=== PATIENT | female | born 2005 | race Hispanic/Latino ===

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

== ENCOUNTER 2024-04-02 22:47 | Emergency (ER) | payer BC, SELFPAY ==
[2024-04-02 22:48] VITALS: BP 137/106; PULSE 69; RESP 16; TEMP 36.7; O2SAT 100; BMI 24.5
--- NOTE | 2024-04-02 23:15 | RAD_ITS ---
EXAM: XR CHEST, 2 VIEWS CLINICAL INDICATION: cough TECHNIQUE: Frontal and lateral views of the chest. COMPARISON: No relevant prior studies available. FINDINGS: LUNGS AND PLEURAL SPACES: Unremarkable. No consolidation or edema. No pneumothorax. No effusion. HEART: Unremarkable. Cardiac silhouette not enlarged. MEDIASTINUM: Central airways and mediastinal contour are unremarkable. BONES/JOINTS: Unremarkable. No acute fracture. SOFT TISSUES: Unremarkable. RAD/Chest PA and Lateral IMPRESSION: No radiographic evidence of acute cardiopulmonary disease. Electronically Signed: Kassandra Casillas MD at 0:35 EST ,
--- NOTE | 2024-04-03 00:26 | EDS_ITS ---
HPI History of Present Illness Chief Complaint: Sore Throat Informant: patient Narrative Narrative: Patient is a 18-year-old female with past medical history of pseudoseizures. She states multiple people at work have been sick. She reports that she had sore throat with nasal congestion and cough from was 2 weeks and was seen in urgent care and placed on amoxicillin. She states she took 7 days of the antibiotic and felt better for 1 to 2 days. However in the last 1 to 2 days she has returned with congestion drainage cough and sore throat. Patient has concern that the antibiotic did not treat her infection as symptoms returned shortly after stopping it and therefore comes in for evaluation [facility] Medical History Pseudoseizures Home Medications ?Medication ?Instructions ?Recorded ?Last Taken ?Type aripiprazole 2 mg tablet 2 mg PO DAILY 05/29/21 Unknown History calcium 600 mg PO/SL DAILY 05/29/21 Unknown History fluoxetine 40 mg capsule 40 mg PO DAILY 05/29/21 Unknown History trazodone 100 mg tablet 100 mg PO DAILY 05/29/21 Unknown History cyclobenzaprine 10 mg tablet 10 mg PO TID PRN Muscle Spasm #20 11/17/23 Unknown Rx TABLETS ibuprofen 600 mg tablet 600 mg PO Q6H PRN PRN pain #20 11/17/23 Unknown Rx TABLETS benzonatate 200 mg capsule 200 mg PO TID PRN cough 10 days 04/03/24 Unknown Rx #30 caps prednisone 20 mg tablet 40 mg (2 x 20 mg) PO DAILY 7 days 04/03/24 Unknown Rx #14 tabs Allergy/AdvReac Type Severity Reaction Status Date / Time No Known Allergies Allergy Verified 04/02/24 22:49 Family History Father Diabetes Brother Depression ADD (attention deficit disorder) Sister Depression Surgical History History of artificial skin graft Hx of appendectomy Social History Smoking Status: Current every day smoker tobacco type: e-cigarettes alcohol intake: never substance use type: does not use ROS ROS ED Constitutional Constitutional ED: Denies chills or fever(s) Eyes Eyes: Denies blurry vision or change in vision ENT ENT ED: Reports rhinorrhea and sore throat Cardiovascular Cardiovascular: Denies chest pain Respiratory/Chest Respiratory/Chest: Reports cough; Denies dyspnea Gastrointestinal Gastrointestinal: Denies abdominal pain, diarrhea, nausea or vomiting Genitourinary Genitourinary ED: Denies dysuria Musculoskeletal Musculoskeletal: Reports myalgias Integumentary Denies rash Neurologic Neurologic: Denies headache(s) Hematologic/Lymphatic Hematologic/Lymphatic: Denies easy bleeding or easy bruising Allergic/Immunologic Allergic/Immunologic ED: Denies mouth swelling or tongue swelling EXAM Physical Exam Const Vital Signs: 04/02/24 22:48 04/03/24 00:39 Temperature 98.1 F 97.9 F Temperature Source Oral Pulse Rate 69 69 Respiratory Rate 16 18 Blood Pressure 137/106 H 121/74 H Blood Pressure Mean 116 89 Pulse Ox 100 99 Oxygen Delivery Method Room Air Positive well nourished and well developed General Appearance ED: well developed; Negative for pallor HEENT HEENT Narrative: Bilateral TMs are retracted but show no secondary changes to suggest infection Nasal mucosa is hyperemic and boggy with enlarged inferior nasal turbinates There is cobblestoning noted in the posterior pharynx consistent with sinus drainage without airway edema or compromise No tongue or lip swelling no oral lesions; no secondary findings to suggest infection No trismus change in voice or difficulty with secretions Eyes PERRL and EOMs intact bilaterally Neck supple Neck Narrative: No nuchal rigidity or meningeal signs Anterior several lymphadenopathy is noted bilaterally Resp normal respiratory effort and clear to auscultation bilaterally Cardio regular rate and regular rhythm Extremity normal to inspection Neuro oriented x3, CN's II-XII intact bilaterally and no sensory deficits noted Sensorium / Orientation: alert Motor Exam: strength 5/5 throughout Psych Mood & Affect: anxious Skin no rashes or lesions noted and no wounds General Skin Exam: Negative for jaundice or pallor MDM MDM MDM Narrative Medical decision making narrative: Patient arrived to the ER hypertensive but otherwise with stable vitals. She reported being sick with congestion cough and sore throat for few weeks followed by improvement for 1 to 2 days with return of symptoms. This is most consistent with recurrent upper respiratory tract infection. We discussed this could be related to COVID versus influenza versus RSV but as she is not hypoxic or in respiratory distress it would not change treatment options and therefore patient does not want the swab obtained. We discussed potential strep throat swab as this is a potential for her symptoms but physical exam does not show any changes for this and especially since she recently took amoxicillin my concern for strep throat is low and patient does not want a strep swab obtained. Patient has no physical exam findings concerning for Carol Ann-Centeno/mononucleosis so I feel no need for a Monospot test either. However based on her age and recurrent exposures she may have developed atypical pneumonia so a chest x-ray was ordered. Chest x-ray revealed no acute lung pathology indicating she has a recurrent viral infection. At this time she is not in respiratory distress she does not have airway compromise and there is no need for further workup or admission and she be discharged home with symptomatic care. History & Record Review Discussion w/independent historian: Patient Radiography Diagnostic Testing: Clinical Impression(s) from Imaging Studies Chest X-Ray 04/02/24 23:15 IMPRESSION: No radiographic evidence of acute cardiopulmonary disease. Electronically Signed: Kassandra Casillas MD at 0:35 EST , 2 view chest x-ray as interpreted by the emergency medicine physician reveals no acute infiltrate pneumothorax or pleural effusion Discharge Plan Triage Chief Complaint: Sore Throat ED Provider: Medardo Gill Dx/Rx/DC Orders Clinical Impression: Viral upper respiratory tract infection with cough, Pharyngitis Instructions: ED URI, Viral, No Abx (Adult) Prescriptions: New prednisone 20 mg tablet 40 mg PO DAILY 7 Days Qty: 14 0RF benzonatate 200 mg capsule 200 mg PO TID PRN (Reason: cough) 10 Days Qty: 30 0RF No Action fluoxetine 40 mg capsule 40 mg PO DAILY trazodone 100 mg tablet 100 mg PO DAILY aripiprazole 2 mg tablet 2 mg PO DAILY calcium 600 mg PO/SL DAILY ibuprofen 600 mg tablet 600 mg PO Q6H PRN PRN (Reason: pain) Qty: 20 0RF cyclobenzaprine 10 mg tablet 10 mg PO TID PRN (Reason: Muscle Spasm) Qty: 20 0RF Primary Care Provider: Care Physician,No Primary Referrals: Ricky Nix MD [Med Staff - Active Staff] - Care Physician,No Primary [Primary Care Provider] - Activity Restrictions/Additional Instructions: Your x-ray does not show pneumonia and your history and exam is consistent with a viral upper respiratory tract infection. This will last 18 to 21 days on average and needs to run its course antibiotics will not resolve it. Take the prescribed medication as directed to help control symptoms and return to the ER should you have any further concerns Print Language: Georgian Disposition Disposition: Home, Self Care Discharge Date/Time: 04/03/24 00:40
[2024-04-03] MEDS: predniSONE 20 MG Tablet 60 MG PO (00:37)
[2024-04-03] MEDS: Benzonatate 100 MG Capsule 200 MG PO (00:38)
[2024-04-03 00:39] VITALS: BP 121/74; PULSE 69; RESP 18; TEMP 36.6; O2SAT 99
== END 2024-04-03 00:40 | disposition home or self-care (01) ==
PROVIDERS: Emergency Provider Emergency Medicine; Visit Provider Emergency Medicine
DX: J06.9 Acute upper respiratory infection, unspecified (principal); F17.290 Nicotine dependence, other tobacco product, uncomplicated
CPT/HCPCS: 71046; 99283

== ENCOUNTER → 2024-04-03 | Outpatient (CLI) | payer BC, SELFPAY ==
[2024-04-03 17:38] LABS: Absolute Lymphocyte Count 2.29 X10^3/uL (0.83-4.51); Absolute Neutrophil Count 12.1 X10^3/uL (2.0-7.7); Basophil# 0.03 X10^3/uL; Basophil% 0.2 % (0-1); Eosinophil# 0.07 X10^3/uL; Eosinophils% 0.5 % (0-5); Hematocrit 39.5 % (37-47); Lymphocyte # 2.29 X10^3/ul (0.83-4.51); Lymphocyte % 14.9 % (19-41); Mean Corp Hgb Conc 32.9 g/dL (32-36); Mean Corpuscular Volume 88.2 fL (81-99); Mean Platelet Vol. 10.2 fl (6.2-12.0); Monocyte# 0.82 X10^3/uL; Monocyte% 5.4 % (0-10); NRBC Flagged by Analyzer 0 % (0-5); Neutrophil # 12.05 X10^3/uL (2.7-7.7); Neutrophil % 78.6 % (47-70); Platelet Count 345 K/mm3 (150-450); RBC Distribution Width CV 12.4 % (11.6-14.6); RBC Distribution Width SD 39.9 fl (35.1-43.9); Red Blood Count 4.48 M/mm3 (4.2-5.4); White Blood Count 15.3 K/mm3 (4.4-11.0)
[2024-04-03 19:08] LABS: ALB/GLOB Ratio 1.1 RATIO (0.9-2.4); AST(SGOT) 15 U/L (15-37); Alanine Aminotransfer ALT/SGPT 19 U/L (13-56); Albumin, Serum 4.2 g/dL (3.2-5.0); Alkaline Phosphatase 95 U/L (45-117); Anion Gap 10 (5-15); BUN 14 mg/dL (7-18); BUN/Creat Ratio 17.1 RATIO (10-20); Calcium,Total 9.4 mg/dL (8.5-10.1); Chloride 107 mmol/L (98-107); Creatinine, Serum 0.82 mg/dL (0.55-1.02); EST Glomerular Filtration Rate 95 mL/min (>60); Est Glom Filt Rate - Afr Amer 115 mL/min (>60); Globulin 3.8 g/dL (2.2-4.2); Glucose 125 mg/dL (74-106); Potassium 3.4 mmol/L (3.5-5.1); Sodium Level 140 mmol/L (136-145); T4 Free Direct 1.09 ng/dL (0.76-1.46); Thyroid Stim Hormone (TSH) 0.293 uIU/mL (0.358-3.740)
[2024-04-03 19:28] LABS: Hemoglobin A1c 5.5 % (3.8-5.6)
[2024-04-06 07:08] LABS: Anti-Thyroglobulin AB < 1.0 IU/mL (0.0-0.9); Thyroglobulin, Serum Qt. 12.6 ng/mL (1.5-38.5); Thyroid Peroxidase AB 18 IU/mL (0-26); Thyroid Stim Immunoglob <0.10 IU/L (0.00-0.55)
== END | disposition home or self-care (01) ==
LOC: MFPLAB 16:37
PROVIDERS: PCP Family Medicine; Referring Provider Family Medicine; Visit Provider Family Medicine
DX: R79.89 Other specified abnormal findings of blood chemistry (principal); R73.02 Impaired glucose tolerance (oral); R63.4 Abnormal weight loss
CPT/HCPCS: 36415; 80053; 83036; 84432; 84439; 84443; 84445; 85025; 86376; 86800

== ENCOUNTER → 2024-04-08 | Outpatient (CLI) | payer BC, SELFPAY ==
--- NOTE | 2024-04-08 15:53 | US_ITS ---
STUDY: THYROID ULTRASOUND REASON FOR EXAM: Female, 18 years old. Thyroid nodule. TECHNIQUE: Ultrasound evaluation of the thyroid was performed with real-time and static clements-scale imaging. COMPARISON: None. FINDINGS: RIGHT LOBE: The right lobe of the thyroid gland measures 3.9 cm x 1.1 cm x 1.1 cm. There is a homogeneous echotexture. There are no demonstrated solid, cystic or complex lesions. LEFT LOBE: The left lobe of the thyroid gland measures 3.2 cm x 1.2 cm x 1.1 cm. There is a homogeneous echotexture. There are no demonstrated solid, cystic or complex lesions. ISTHMUS: The isthmus measures 1 mm. The regional lymph nodes are normal. US/Head/Neck Soft Tissue IMPRESSION: Normal ultrasound examination of the thyroid. Electronically Signed: Omega Ray MD at 15:10 EST ,
== END | disposition home or self-care (01) ==
LOC: US 15:51
PROVIDERS: PCP Family Medicine; Referring Provider Family Medicine; Visit Provider Family Medicine
DX: E04.1 Nontoxic single thyroid nodule (principal)
CPT/HCPCS: 76536

== ENCOUNTER → 2024-05-06 | Outpatient (CLI) | payer BC, SELFPAY ==
[2024-05-06 17:53] LABS: Absolute Lymphocyte Count 3.33 X10^3/uL (0.83-4.51); Absolute Neutrophil Count 7.3 X10^3/uL (2.0-7.7); Basophil# 0.07 X10^3/uL; Basophil% 0.6 % (0-1); Eosinophil# 0.09 X10^3/uL; Eosinophils% 0.8 % (0-5); Hematocrit 38.5 % (37-47); Hemoglobin 12.6 g/dL (12.0-15.0); Lymphocyte # 3.33 X10^3/ul (0.83-4.51); Lymphocyte % 29.4 % (19-41); Mean Corp Hgb Conc 32.7 g/dL (32-36); Mean Corpuscular Hgb 29.6 pg (27.0-32.0); Mean Corpuscular Volume 90.4 fL (81-99); Mean Platelet Vol. 10.5 fl (6.2-12.0); Monocyte# 0.48 X10^3/uL; Monocyte% 4.2 % (0-10); NRBC Flagged by Analyzer 0 % (0-5); Neutrophil % 64.6 % (47-70); Platelet Count 343 K/mm3 (150-450); RBC Distribution Width CV 12.7 % (11.6-14.6); RBC Distribution Width SD 41.5 fl (35.1-43.9); Red Blood Count 4.26 M/mm3 (4.2-5.4); White Blood Count 11.3 K/mm3 (4.4-11.0)
[2024-05-06 18:29] LABS: Anion Gap 7 (5-15); BUN 19 mg/dL (7-18); BUN/Creat Ratio 14.4 RATIO (10-20); Calcium,Total 9.5 mg/dL (8.5-10.1); Chloride 107 mmol/L (98-107); Creatinine, Serum 1.32 mg/dL (0.55-1.02); EST Glomerular Filtration Rate 55 mL/min (>60); Est Glom Filt Rate - Afr Amer 66 mL/min (>60); Glucose 83 mg/dL (74-106); Magnesium 2.4 mg/dL (1.6-2.6); Potassium 3.6 mmol/L (3.5-5.1); Sodium Level 140 mmol/L (136-145)
== END | disposition home or self-care (01) ==
LOC: MFPLAB 15:48
PROVIDERS: PCP Family Medicine; Referring Provider Family Medicine; Visit Provider Family Medicine
DX: D72.829 Elevated white blood cell count, unspecified (principal); E87.6 Hypokalemia
CPT/HCPCS: 36415; 80048; 83735; 85025

== ENCOUNTER 2024-08-12 23:17 | Emergency (ER) | payer SELFPAY ==
[2024-08-12 23:17] VITALS: BP 118/90; PULSE 70; RESP 16; TEMP 36.8; O2SAT 99; BMI 24.2
[2024-08-13] MEDS: HYDROmorphone 0.5 MG/0.5 ML SYRINGE IV ×2 (00:08→03:14)
[2024-08-13] MEDS: 0.9% Normal Saline (1000mL) 1,000 ML 999 ML IV (00:08)
[2024-08-13] MEDS: Ondansetron 4 MG/2 ML Vial IV (00:08)
[2024-08-13 00:19] LABS: Absolute Lymphocyte Count 3.77 X10^3/uL (0.83-4.51); Absolute Neutrophil Count 4.4 X10^3/uL (2.0-7.7); Basophil# 0.05 X10^3/uL; Basophil% 0.6 % (0-1); Eosinophil# 0.15 X10^3/uL; Eosinophils% 1.7 % (0-5); Hematocrit 34.1 % (37-47); Hemoglobin 11.5 g/dL (12.0-15.0); Lymphocyte # 3.77 X10^3/ul (0.83-4.51); Lymphocyte % 41.9 % (19-41); Mean Corp Hgb Conc 33.7 g/dL (32-36); Mean Corpuscular Hgb 29.7 pg (27.0-32.0); Mean Corpuscular Volume 88.1 fL (81-99); Mean Platelet Vol. 9.8 fl (6.2-12.0); Monocyte# 0.63 X10^3/uL; NRBC Flagged by Analyzer 0 % (0-5); Neutrophil # 4.37 X10^3/uL (2.7-7.7); Neutrophil % 48.6 % (47-70); Platelet Count 301 K/mm3 (150-450); RBC Distribution Width CV 12.3 % (11.6-14.6); RBC Distribution Width SD 39.6 fl (35.1-43.9); Red Blood Count 3.87 M/mm3 (4.2-5.4)
[2024-08-13 00:29] LABS: AST(SGOT) 21 U/L (<=31); Alanine Aminotransfer ALT/SGPT 10 U/L (<=34); Albumin, Serum 4.2 g/dL (3.5-5.0); Alkaline Phosphatase 82 U/L (35-104); Anion Gap 10 (5-15); BUN 16 mg/dL (4-19); BUN/Creat Ratio 22.2 RATIO (10-20); Bilirubin, Direct 0.17 mg/dL (0.00-0.30); Calcium,Total 9.2 mg/dL (7.6-11.0); Carbon Dioxide 23.5 mmol/L (21.0-32.0); Chloride 107 mmol/L (98-108); Creatinine, Serum 0.71 mg/dL (0.70-1.20); EST Glomerular Filtration Rate 125 (>60); Estimated Creatinine Clearance 91.54 ml/min (50-250); Globulin 2.7 g/dL (2.2-4.2); Glucose 95 mg/dL (70-99); Lipase 21 U/L (13-75); Potassium 3.7 mmol/L (3.3-5.1); Protein, Total 6.8 g/dL (5.9-8.4); Sodium Level 141 mmol/L (133-145); Total Bilirubin 0.39 mg/dL (0.00-1.30)
[2024-08-13 00:33] LABS: Internal QC Validated? YES +Cl - CLEAR BKGD; Pregnancy, Serum, hCG Quali. NEGATIVE Negative
[2024-08-13 01:17] VITALS: BP 103/71; PULSE 65; RESP 18; O2SAT 94
[2024-08-13 02:13] LABS: Mucous, Urine 0 SEEN /hpf (<or=2+); Red Blood Cells-Urine 0 SEEN /hpf (0-5)
[2024-08-13 02:17] LABS: Color, Urine Yellow (Yellow); Glucose, Dipstick Normal (Normal); Ketone-Dipstick 5 mg/dl (Negative); Leukocyte Esterase-Dipstick Negative /ul (Negative); Nitrite-Dipstick Negative (Negative); Occult Blood-Urine Negative /ul (Negative); Protein-Dipstick 30 mg/dl (Negative); Urine Bilirubin Dipstick Negative (Negative); Urine Clarity Clear (Clear); Urine Urobilinogen Normal (Normal); Urine pH 6.5 (5.0 - 8.0)
[2024-08-13 02:25] LABS: Bacteria 1+ /hpf (None Seen); Squamous Epithelial Cells - UA 0-5 SEEN /hpf (5-10); White Blood Cells 0-5 SEEN /hpf (0-5)
--- NOTE | 2024-08-13 02:51 | EX.ED.DYSGE1 ---
HPI History of Present Illness Chief Complaint: Abd Pain Informant: patient and spouse/S.O. Narrative Narrative: Patient is a 18-year-old female with past medical history of anxiety and depression as well as nonepileptic seizures. She states that she has had intermittent right upper quadrant abdominal pain for the past few days. She states that however it came on suddenly roughly 1 hour prior to arrival and was more intense than it has been and secondary to the worsening pain she presents for evaluation. She states that there has been no fevers chills nausea vomiting diarrhea or dysuria. She states she does not have concern for STD or . She denies any recent trauma or excessive activity. However due to the recurrent pain and the worsening symptoms she presents for evaluation [facility] Medical History (Updated 08/13/24 @ 06:[address] Medardo Gill DO) Depression Anxiety Pseudoseizures Home Medications ?Medication ?Instructions ?Recorded ?Last Taken ?Type doxycycline hyclate 100 mg capsule 100 mg PO BID 14 days #28 caps 08/13/24 Unknown Rx metronidazole 500 mg tablet 500 mg PO BID 14 days #28 tabs 08/13/24 Unknown Rx ondansetron 4 mg disintegrating 4 mg PO TID PRN nausea and 08/13/24 Unknown Rx tablet vomiting #21 tabs oxycodone-acetaminophen 5 mg-325 1 tab PO Q6H PRN pain 3 days #12 08/13/24 Unknown Rx mg tablet (Percocet) tabs Allergy/AdvReac Type Severity Reaction Status Date / Time No Known Allergies Allergy Verified 08/12/24 23:18 Family History Father Diabetes Brother Depression ADD (attention deficit disorder) Sister Depression Surgical History History of artificial skin graft Hx of appendectomy Social History Smoking Status: Current every day smoker tobacco type: e-cigarettes alcohol intake: never substance use type: does not use ROS ROS ED Constitutional Constitutional ED: Denies chills or fever(s) ENT ENT ED: Denies sore throat Cardiovascular Cardiovascular: Denies chest pain Respiratory/Chest Respiratory/Chest: Denies cough or dyspnea Gastrointestinal Gastrointestinal: Reports abdominal pain and nausea; Denies diarrhea or vomiting Genitourinary Genitourinary ED: Reports other Details: Patient denies any pelvic discharge ; Denies dysuria, hematuria or urinary frequency Musculoskeletal Musculoskeletal: Denies back pain Integumentary Denies rash Neurologic Neurologic: Denies headache(s) Psychiatric Psychiatric: Reports anxiety and depression Hematologic/Lymphatic Hematologic/Lymphatic: Denies easy bleeding or easy bruising EXAM Physical Exam Const Vital Signs: 08/12/24 23:17 08/13/24 01:17 08/13/24 03:21 Temperature 98.3 F 98.2 F Temperature Source Oral Pulse Rate 70 65 69 Respiratory Rate 16 18 18 Blood Pressure 118/90 H 103/71 106/88 H Blood Pressure Mean 99 81 94 Pulse Ox 99 94 99 Oxygen Delivery Method Room Air Positive well nourished and well developed General Appearance ED: well developed; Negative for pallor HEENT Reports moist mucous membranes HEENT Narrative: No sign of infection noted in the posterior pharynx Eyes PERRL and EOMs intact bilaterally General Eye ED: Negative for scleral icterus Neck supple Neck Narrative: No nuchal rigidity or meningeal signs Chest Wall palpation of chest normal Resp normal respiratory effort and clear to auscultation bilaterally Resp Narrative: No nasal flaring retractions tachypnea or accessory muscle use Cardio regular rate and regular rhythm Rate: other Other Details: Heart is regular rate and rhythm without murmurs rubs or gallops Radial and carotid pulses are equal and symmetric GI non-distended and no masses GI Narrative: Abdomen is soft and nondistended with normal active bowel sounds. There is pain on palpation in the right upper quadrant No voluntary guarding or rigidity or pulsatile mass Auscultation: normoactive bowel sounds Palpation: soft Narrative: External genitalia is normal Speculum exam reveals a scant amount of clear to white discharge. The cervical os is closed it is a normal pink color without erythema or lesions No cervical motion tenderness noted No adnexal masses or pain with palpation Back/Spine no CVA tenderness Extremity normal to inspection Neuro oriented x3, CN's II-XII intact bilaterally and no sensory deficits noted Sensorium / Orientation: alert Motor Exam: strength 5/5 throughout Psych Mood & Affect: anxious Skin no rashes or lesions noted and no wounds General Skin Exam: Negative for jaundice or pallor MDM MDM MDM Narrative Medical decision making narrative: Patient presented to the ER with stable vitals. She reported a few days of intermittent right upper quadrant pain that was now increasing in severity. There was no report or signs of trauma. Differential diagnosis is for biliary colic versus acute cholecystitis versus pancreatitis versus complication. At this time of night I cannot perform an ultrasound of so therefore elected to perform a CT scan with IV contrast as well as basic laboratory values. Patient's liver enzymes are normal going against acute cholecystitis and lipase is normal going against pancreatitis. test is also negative going against complication. Urine sample showed +1 bacteria without white blood cells nitrite or leukocyte esterase and therefore I do not feel this is true UTI but most likely normal urogenital mell. The patient CT scan did not show any signs of tubo-ovarian abscess or gallstones or pericholecystic fluid. It did document mild inflammation around the liver which does correlate with the location of her pain. 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 Therefore the urine was sent for gonorrhea and chlamydia. As there is no obvious cause of the patient's symptoms I do have concern that this could be infectious stemming from atypical presentation for STD/PID. Therefore she was started on Rocephin as well as doxycycline and Flagyl. As she does not have a fever or hypotension or leukocytosis or left shift I do not feel there is need for inpatient treatment. Patient will be placed on doxycycline and Flagyl to cover for STD/Kali-Trsiten Chester syndrome and also be given an outpatient order form for a abdominal ultrasound to further evaluate the liver inflammation. An acute hepatitis panel will also be obtained to check for this as a potential cause of her symptoms. However at this time as she is hemodynamically stable we will simply start her on antibiotics covering her for atypical infection and she can follow-up as an outpatient and return if symptoms fail to improve or worsen. History & Record Review Discussion w/independent historian: Patient and Significant other Lab Data Attestation: I reviewed the patient's lab results. Labs: Laboratory Results - last 24 hr 08/12/24 08/13/24 00:05 02:05 WBC 9.0 RBC 3.87 L Hgb 11.5 L Hct 34.1 L MCV 88.1 MCH 29.7 MCHC 33.7 RDW Std Deviation 39.6 RDW Coeff of Deann 12.3 Plt Count 301 MPV 9.8 Immature Gran % (Auto) 0.200 Neut % (Auto) 48.6 Lymph % (Auto) 41.9 H [place] % (Auto) 7.0 Eos % (Auto) 1.7 Baso % (Auto) 0.6 Absolute Neuts (auto) 4.4 Absolute Lymphs (auto) 3.77 Nucleated RBC % 0 Sodium 141 Potassium 3.7 Chloride 107 Carbon Dioxide 23.5 Anion Gap 10 BUN 16 Creatinine 0.71 Estim Creat Clear Calc 91.54 Est GFR (MDRD) Non-Af 125 BUN/Creatinine Ratio 22.2 H Glucose 95 Calcium 9.2 Total Bilirubin 0.39 Direct Bilirubin 0.17 AST 21 ALT 10 Alkaline Phosphatase 82 Total Protein 6.8 Albumin 4.2 Globulin 2.7 Lipase 21 Serum , Qual NEGATIVE Urine Color Yellow Urine Clarity Clear Urine pH 6.5 Ur Specific [place] 1.010 Urine Protein 30 H Urine Glucose (UA) Normal Urine Ketones 5 H Urine Occult Blood Negative Urine Nitrite Negative Urine Bilirubin Negative Urine Urobilinogen Normal Ur Leukocyte Esterase Negative Urine RBC 0 SEEN Urine WBC 0-5 SEEN Ur Squamous Epith Cells 0-5 SEEN Urine Bacteria 1+ Urine Mucus 0 SEEN Chlamydia DNA (MARTY) Cancelled N.gonorrhoeae DNA (MARTY) Cancelled Radiography Diagnostic Testing: Clinical Impression(s) from Imaging Studies Abdomen/Pelvis CT 08/13/24 23:48 IMPRESSION: Mild geographic heterogeneous appearance of the liver and possible mild periportal edema may be inflammatory/infectious, possible hepatitis, clinically correlate. Reading Location: [facility] Discharge Plan Triage Chief Complaint: Abd Pain ED Provider: Medardo Gill Dx/Rx/DC Orders Clinical Impression: Right upper quadrant abdominal pain, Anxiety and depression, History of psychogenic nonepileptic seizure Instructions: Abdominal Pain, ED Abdominal Pain Unkn Cause Fem Prescriptions: New doxycycline hyclate 100 mg capsule 100 mg PO BID 14 Days Qty: 28 0RF metronidazole 500 mg tablet 500 mg PO BID 14 Days Qty: 28 0RF oxycodone-acetaminophen [Percocet] 5-325 mg tablet 1 tab PO Q6H PRN (Reason: pain) 3 Days Qty: 12 0RF ondansetron 4 mg tablet,disintegrating 4 mg PO TID PRN (Reason: nausea and vomiting) Qty: 21 0RF Stand Alone Forms: ED Work / School Excuse Other Ambulatory Orders: Abdomen Complete (Routine) Facility: [facility] - Location: [facility] Ordered By: Dr. Medardo Gill Primary Care Provider: Jaycob Perera Referrals: Jaycob Perera MD [Primary Care Provider] - Activity Restrictions/Additional Instructions: Your workup today showed inflammation around your liver which is nonspecific. 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 There is still a possibility your pain could be related to your gallbladder. Please obtain the outpatient ultrasound to further evaluate the abnormality found on today's CT scan. Take the medication as prescribed to cover for potential infection process and return to the ER should you have any further concerns or worsening of symptoms Print Language: Guamanian Disposition Disposition: Home, Self Care Discharge Date/Time: 08/13/24 03:33
[2024-08-13] MEDS: Ceftriaxone 500 MG Vial IM (03:17)
[2024-08-13] MEDS: oxyCODONE 5 MG Tablet PO (03:19)
[2024-08-13] MEDS: Doxycycline 100 MG CAPSULE PO (03:19)
[2024-08-13] MEDS: metroNIDAZOLE 500 MG Tablet PO (03:19)
[2024-08-13 03:21] VITALS: BP 106/88; PULSE 69; RESP 18; TEMP 36.8; O2SAT 99
--- NOTE | 2024-08-13 23:48 | CT_ITS ---
PROCEDURE: ABDOMEN/PELVIS W IV CONT ONLY 08/13/2024 REASON FOR EXAM: RUQ PAIN TECHNIQUE: Abdomen and pelvis CT with intravenous contrast. Coronal and Sagittal reconstruction series were provided. PATIENT PREPARATION: Per protocol ORAL CONTRAST TYPE: None. CONTRAST: 96 cc Isovue 370 IV One or more dose reduction techniques were used (e.g., Automated exposure control, adjustment of the mA and/or kV according to patient size, use of iterative reconstruction technique. RADIATION DOSE SUMMARY: CTDlvol: 16.62 mGy DLP: 328.33 mGycm COMPARISON: None available FINDINGS: Lung bases are clear. Mild geographic heterogeneous appearance of the liver and possible mild periportal edema may be inflammatory/infectious, possible hepatitis, clinically correlate. The gallbladder, adrenal glands, kidneys, pancreas and spleen appear within limits. Abdominal aorta appears within limits. No adenopathy. No bowel dilation or free air. Status post appendectomy, no secondary signs. The ovaries, uterus and bladder appear within limits. No free fluid. Visualized osseous structures appear within limits. CT/Abdomen/Pelvis W IV Cont ONLY IMPRESSION: Mild geographic heterogeneous appearance of the liver and possible mild peripor lila edema may be inflammatory/infectious, possible hepatitis, clinically correlate. Reading Location: [id number]
[2024-08-14 05:07] LABS: HEPATITIS B SURFACE AG Negative (Negative); Hep C Antibodies Non Reactive (Non Reactive); Hepatitis A IgM Antibody Negative (Negative); Hepatitis B Core AB IgM Negative (Negative)
== END 2024-08-13 03:33 | disposition home or self-care (01) ==
PROVIDERS: Emergency Provider Emergency Medicine; PCP Family Medicine; Visit Provider Emergency Medicine
DX: R10.11 Right upper quadrant pain (principal); F41.9 Anxiety disorder, unspecified; F32.A Depression, unspecified; F17.290 Nicotine dependence, other tobacco product, uncomplicated
CPT/HCPCS: 74177; 80048; 80074; 80076; 81001; 83690; 84703; 85025; 87491; 87591; 96361; 96372; 96374; 96375; 96376; 99284; Q9967; A4216; J2405

== ENCOUNTER 2024-10-31 19:47 | Emergency (ER) | payer SELFPAY ==
[2024-10-31 19:49] VITALS: BP 119/95; PULSE 76; RESP 16; TEMP 36.8; O2SAT 99; BMI 22.8
--- NOTE | 2024-10-31 20:02 | CT_ITS ---
PROCEDURE: CT BRAIN/HEAD WITHOUT CONTRAST 10/31/2024 REASON FOR EXAM: HEAD INJURY TECHNIQUE: CT BRAIN/HEAD WITHOUT CONTRAST Coronal and Sagittal reconstruction series were provided. One or more dose reduction techniques were used (e.g., Automated exposure control, adjustment of the mA and/or kV according to patient size, use of iterative reconstruction technique. RADIATION DOSE SUMMARY: CTDlvol: 44.99 mGy DLP: 812.98 mGycm COMPARISON: None. FINDINGS: No acute intracranial hemorrhage, extra-axial collection, mass effect or evidence of acute infarct. Ventricles and subarachnoid spaces are normal in size. Orbital contents are unremarkable. Intact skull base and calvarium. Clear paranasal sinuses and mastoid air cells. Presumed cosmetic metallic piercing in the patient's right eyebrow region. CT/Brain/Head without Contrast IMPRESSION: No acute intracranial abnormality. Reading Location: [id number]
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
--- OUTSIDE RECORDS SUMMARY | 2024-10-31 20:39 | XMS RPT_ITS | CCD ---
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 [address] [place], [address] [id number] 08-13-2024 [id number] Pending Chlamydia Trachomatis PCR POSITIVE for Chlamydia trachomatisA N. gonorrhoeae PCR Negative for N. gonorrhoeae Normal [facility] Comment on above: Performed By: #### L 400.0001 #### [facility] [address] [place], [address] Microscopic analysis of urin e for red blood cells (RBC)Ordered By: Medardo Gill on 08-13-2024 Microscopic analysis of urine for red blood cells (RBC) 0 SEEN /hpf 0-[address] [facility] Mucus LM Ql (Urine sed)Order ed By: Medardo Gill on 08-13-2024 Mucus Ql (Urine sed) 0 SEEN /hpf [facility] Nitrite Test strip Ql (U)Ord ered By: Medardo Gill on 08-13-2024 Nitrite Ql (U) Negative Negative [facility] ,Serum,hCG Quali.on 08-13-2024 HCG, SERUM QUAL Negative Normal [facility] Comment on above: Performed By: #### L 3000.0375 #### [facility] [address] [place], [address] Protein Test strip Ql (U)Ord ered By: Medardo Gill on 08-13-2024 Protein Ql (U) 30 mg/dl High Negative [facility] Squamous epithelial cells de tection in urine sediment by light microscopyOrdered By: Medardo Gill on 08-13-2024 Epithelial cells.squamous LM Ql (Urine sed) 0-5 SEEN /hpf 5-[address] [facility] Urinalysis, Completeon 08-13 BACTERIA 1+ /hpf Normal None Seen [facility] Comment on above: Order Comment: CLEAN CATCH Performed By: #### L 400.0001 #### [facility] [address] [place], [address] EPI,SQUAMOUS 0-5 SEEN Normal 5-[address] [facility] Comment on above: Order Comment: CLEAN CATCH Performed By: #### L 400.0001 #### [facility] [address] [place], [address] WBC 0-5 SEEN Normal 0-[address] [facility] Comment on above: Order Comment: CLEAN CATCH Performed By: #### L 400.0001 #### [facility] [address] [place], [address] Mucus Ql (Urine sed) 0 SEEN Normal [facility] Comment on above: Order Comment: CLEAN CATCH Performed By: #### L 400.0001 #### [facility] [address] [place], [address] RBC 0 SEEN Normal 0-[address] [facility] Comment on above: Order Comment: CLEAN CATCH Performed By: #### L 400.0001 #### [facility] [address] [place], [address] Urine clarityOrdered By: Nacho Gill on 08-13-2024 Clarity (U) Clear Clear [facility] Urine color determinationOrd ered By: Medardo Gill on 08-13-2024 Color (U) Yellow Yellow [facility] Urine glucose detectionOrder ed By: Medardo Gill on 08-13-2024 Glucose Ql (U) Normal mg/dl Normal [facility] Urine leukocyte esterase det ection by dipstickOrdered By: Medardo Gill on 08-13-2024 Leukocyte esterase Test strip Ql (U) Negative Negative [facility] Urine pHOrdered By: Medardo bowie on 08-13-2024 pH (U) 6.5 [pH] 5.0 - 8.[address] [facility] Urine sediment bacteria coun t by microscopy (number/high power field)Ordered By: Medardo Gill on 08-13-2024 Bacteria LM.HPF (Urine sed) [#/Area] 1 /[HPF] None Seen [facility] Urine specific gravity measu rementOrdered By: Medardo Gill on 08-13-2024 Specific gravity (U) [Rel density] 1.010 1.002-1.[address] [facility] Urine urobilinogen measureme ntOrdered By: Medardo Gill on 08-13-2024 Urobilinogen Ql (U) Normal mg/dl Normal [facility] White blood cell countOrdere d By: Medardo Gill on 08-13-2024 White blood cell count 0-5 SEEN /hpf 0-[address] [facility] Absolute lymphocyte countOrd ered By: Medardo Gill on 08-12-2024 Lymphocytes Auto (Unsp spec) [#/Vol] 3.77 10*3/uL 0.83-4.[address] [facility] Absolute neutrophil countOrd ered By: Medardo Gill on 08-12-2024 Neutrophils (Bld) [#/Vol] 4.4 10*3/uL 2.0-7.[address] [facility] Anion gap in Serum or Plasma Ordered By: Medardo Gill on 08-12-2024 Anion gap [Moles/Vol] 10 mmol/L 5-15 [facility] Automated lymphocyte count a s percentage of total leukocytesOrdered By: Medardo Gill on 08-12-2024 Lymphocytes/100 WBC Auto (Unsp spec) 41.9 % High 19-[address] [facility] BUN/creatinine ratioOrdered By: Medardo Gill on 08-12-2024 Urea nitrogen/Creatinine [Mass ratio] 22.2 mg/mg High 10-[address] [facility] Basophil percentageOrdered B y: Medardo Gill on 08-12-2024 Basophils/100 WBC (Bld) 0.6 % 0-[address] [facility] Bilirubin directOrdered By: Medardo Gill on 08-12-2024 Bilirubin.direct [Mass/Vol] 0.17 mg/dL 0.00-0.[address] [facility] Bilirubin, totalOrdered By: Medardo Gill on 08-12-2024 Bilirubin [Mass/Vol] 0.39 mg/dL 0.00-1.30 [facility] Carbon dioxide, total [Moles /volume] in Central venous bloodOrdered By: Medardo Gill on 08-12-2024 CO2 [Moles/Vol] 23.5 mmol/L 21.0-32.[address] [facility] Chloride assayOrdered By: Ashlee Gill on 08-12-2024 Chloride [Moles/Vol] 107 mmol/L 98-108 [facility] Eosinophil percentageOrdered By: Medardo Gill on 08-12-2024 Eosinophils/100 WBC (Bld) 1.7 % 0-[address] [facility] Erythrocyte distribution wid th ratioOrdered By: Medardo Gill on 08-12-2024 Erythrocyte distribution width (RBC) [Ratio] 12.3 % 11.6-14.[address] [facility] Erythrocyte distribution wid th standard deviationOrdered By: Medardo Gill on 08-12-2024 Erythrocyte distribution width (RBC) [Ratio] 39.6 fl 35.1-43.[address] [facility] Glomerular filtration rate ( GFR) estimation/1.73 sq m using serum, plasma, or whole bOrdered By: Medardo Gill on 08-12-2024 GFR/1.73 sq M.predicted among non-blacks MDRD (S/P/Bld) [Vol rate/Area] 125 mL/min/{1.73_m2} >[address] [facility] Comment on above: mL/min/1.73m2 CKD-EP I Creatinine Equation (2020) Hematocrit Auto (Bld) [Volum e fraction]Ordered By: Medardo Gill on 08-12-2024 Hematocrit (Bld) [Volume fraction] 34.1 % Low 37-[address] [facility] Hemoglobin measurementOrdere d By: Medardo Gill on 08-12-2024 Hemoglobin (Bld) [Mass/Vol] 11.5 g/dL Low 12.0-15.[address] [facility] Immature granulocytes/100 WB C Auto (Bld)Ordered By: Medardo Gill on 08-12-2024 Immature granulocytes/100 WBC (Bld) 0.200 % 0.0-0.[address] [facility] Comment on above: IG% - Immature Granu locytes (promyelocytes, myelocytes and metamyelocytes) > 1% indicates that a LEFT SHIFT is Present. Laboratory - Chemistry and C hemistry - challengeOrdered By: Medardo Gill on 08-12-2024 AST [Catalytic activity/Vol] 21 U/L <[address] [facility] Lipase measurementOrdered By : Medardo Gill on 08-12-2024 Lipase [Catalytic activity/Vol] 21 U/L 13-[address] [facility] Comment on above: Please note:LIPASE r evised reference range effective 22. New Lipase methodology. Expected to produce lower values than the previous assay method. NEW Reference Range: 13 - 75 U/L MCV (mean corpuscular volume ) determinationOrdered By: Medardo Gill on 08-12-2024 MCV (RBC) [Entitic vol] 88.1 fL 81-[address] [facility] Mean corpuscular hemoglobin (MCH) determinationOrdered By: Medardo Gill on 08-12-2024 MCH (RBC) [Entitic mass] 29.7 pg 27.0-32.[address] [facility] Mean corpuscular hemoglobin concentration (MCHC) determinationOrdered By: Medardo Gill on 08-12-2024 MCHC (RBC) [Mass/Vol] 33.7 g/dL 32-36 [facility] Mean platelet volume determi nationOrdered By: Medardo Gill on 08-12-2024 Platelet mean volume (Bld) [Entitic vol] 9.8 fL 6.2-12.[address] [facility] Monocyte percentageOrdered B y: Medardo Gill on 08-12-2024 Monocytes/100 WBC (Bld) 7.0 % 0-[address] [facility] Neutrophil percentageOrdered By: Medardo Gill on 08-12-2024 Neutrophils/100 WBC (Bld) 48.6 % 47-[address] [facility] Nucleated red blood cell per centageOrdered By: Medardo Gill on 08-12-2024 Nucleated RBC/100 WBC (Bld) [Ratio] 0 % 0-[address] [facility] Platelet countOrdered By: Ashlee Gill on 08-12-2024 Platelets (Bld) [#/Vol] 301 10*3/uL 150-[address] [facility] Potassium measurement (mass/ volume)Ordered By: Medardo Gill on 08-12-2024 Potassium (Unsp spec) [Mass/Vol] 3.7 mmol/L 3.3-5.[address] [facility] RBC Auto (Bld) [#/Vol]Ordere d By: Medardo Gill on 08-12-2024 RBC (Bld) [#/Vol] 3.87 10*6/uL Low 4.2-5.4 [facility] Serum beta-hCG test, qualita tiveOrdered By: Medardo Gill on 08-12-2024 Beta HCG ( test) Ql Negative [facility] Serum creatinine measurement (mass/volume)Ordered By: Medardo Gill on 08-12-2024 Creatinine [Mass/Vol] 0.71 mg/dL 0.70-1.20 [facility] Serum globulin measurementOr dered By: Medardo Gill on 08-12-2024 Globulin (S) [Mass/Vol] 2.7 g/dL 2.2-4.[address] [facility] Serum glucose measurement (m ass/volume)Ordered By: Medardo Gill on 08-12-2024 Glucose [Mass/Vol] 95 mg/dL 70-99 [facility] Serum or plasma alanine ramirez otransferase (ALT) measurementOrdered By: Medardo Gill on 08-12-2024 ALT [Catalytic activity/Vol] 10 U/L <[address] [facility] Serum or plasma albumin ting urement (mass/volume)Ordered By: Medardo Gill on 08-12-2024 Albumin [Mass/Vol] 4.2 g/dL 3.5-5.0 [facility] Serum or plasma alkaline marek sphatase measurementOrdered By: Medardo Gill on 08-12-2024 ALP [Catalytic activity/Vol] 82 U/L 35-[address] [facility] Serum or plasma calcium ting urement (mass/volume)Ordered By: Medardo Gill on 08-12-2024 Calcium [Mass/Vol] 9.2 mg/dL 7.6-11.0 [facility] Serum or plasma urea nitroge n measurement (mass/volume)Ordered By: Medardo Gill on 08-12-2024 Urea nitrogen [Mass/Vol] 16 mg/dL 4-[address] [facility] Sodium levelOrdered By: Rick Gill on 08-12-2024 Sodium [Moles/Vol] 141 mmol/L 133-145 [facility] Total proteinOrdered By: Nacho Gill on 08-12-2024 Protein [Mass/Vol] 6.8 g/dL 5.9-8.4 [facility] White blood cell (WBC) count Ordered By: Medardo Gill on 08-12-2024 WBC (Bld) [#/Vol] 9.0 10*3/uL 4.4-11.0 [facility] Absolute lymphocyte countOrd ered By: Jaycob Perera on 05-06-2024 Lymphocytes Auto (Unsp spec) [#/Vol] 3.33 10*3/uL 0.83-4.[address] [facility] Absolute neutrophil countOrd ered By: Jaycob Perera on 05-06-2024 Neutrophils (Bld) [#/Vol] 7.3 10*3/uL 2.0-7.[address] [facility] Automated lymphocyte count a s percentage of total leukocytesOrdered By: Jaycob Perera on 05-06-2024 Lymphocytes/100 WBC Auto (Unsp spec) 29.4 % 19-[address] [facility] Basic Metabolic Profile (BMP )on 05-06-2024 BUN/CRE 14.4 RATIO Normal 10-[address] [facility] Comment on above: Order Comment: Order Date: 05/01/24 Order Info: 0667-1 - BMP Order Info: [id number] - MG Performed By: #### L 500.2500, L501.5200, L100.0100 #### [facility] [address] [place], [address] CA,Total 9.5 mg/dL Normal 8.5-10.[address] [facility] Comment on above: Order Comment: Order Date: 05/01/24 Order Info: 0667-1 - BMP Order Info: [id number] - MG Performed By: #### L 500.2500, L501.5200, L100.0100 #### [facility] [address] [place], [address] Chloride [Moles/Vol] 107 mmol/L Normal 98-107 [facility] Comment on above: Order Comment: Order Date: 05/01/24 Order Info: 0667-1 - BMP Order Info: [id number] - MG Performed By: #### L 500.2500, L501.5200, L100.0100 #### [facility] [address] [place], [address] CO2 [Moles/Vol] 26.0 mmol/L Normal 21.0-32.[address] [facility] Comment on above: Order Comment: Order Date: 05/01/24 Order Info: 0667-1 - BMP Order Info: [id number] - MG Performed By: #### L 500.2500, L501.5200, L100.0100 #### [facility] [address] [place], [address] Creatinine [Mass/Vol] 1.32 mg/dL High 0.55-1.02 [facility] Comment on above: Order Comment: Order Date: 05/01/24 Order Info: 0667-1 - BMP Order Info: [id number] - MG Result Comment: The validity of the calculated GFR GFRAA in patients over 70 years has not been determined. Clinical correlation is essential. Performed By: #### L 500.2500, L501.5200, L100.0100 #### [facility] [address] [place], [address] EST GFR - AA 66 mL/min Normal >[address] [facility] Comment on above: Order Comment: Order Date: 05/01/24 Order Info: 0667-1 - BMP Order Info: [id number] - MG Result Comment: Afri can [place] GFR Calc Performed By: #### L 500.2500, L501.5200, L100.0100 #### [facility] [address] [place], [address] GAP 7 Normal 5-[address] [facility] Comment on above: Order Comment: Order Date: 05/01/24 Order Info: 0667- - BMP Order Info: [id number] - MG Performed By: #### L 500.2500, L501.5200, L100.0100 #### [facility] [address] [place], [address] GFR/1.73 sq M.predicted among non-blacks MDRD (S/P/Bld) [Vol rate/Area] 55 mL/min/{1.73_m2} Low >[address] [facility] Comment on above: Order Comment: Order Date: 05/01/24 Order Info: 0667-1 - BMP Order Info: [id number] - MG Result Comment: Non- GFR Calc Performed By: #### L 500.2500, L501.5200, L100.0100 #### [facility] [address] [place], [address] Glucose [Mass/Vol] 83 mg/dL Normal 74-106 [facility] Comment on above: Order Comment: Order Date: 05/01/24 Order Info: 0667-1 - BMP Order Info: [id number] - MG Performed By: #### L 500.2500, L501.5200, L100.0100 #### [facility] [address] [place], [address] Potassium [Moles/Vol] 3.6 mmol/L Normal 3.5-5.1 [facility] Comment on above: Order Comment: Order Date: 05/01/24 Order Info: 0667-1 - BMP Order Info: [id number] - MG Performed By: #### L 500.2500, L501.5200, L100.0100 #### [facility] [address] [place], [address] Sodium [Moles/Vol] 140 mmol/L Normal 136-145 [facility] Comment on above: Order Comment: Order Date: 05/01/24 Order Info: 0667-1 - BMP Order Info: [id number] - MG Performed By: #### L 500.2500, L501.5200, L100.0100 #### [facility] [address] [place], [address] Urea nitrogen [Mass/Vol] 19 mg/dL High - [facility] Comment on above: Order Comment: Order Date: 05/01/24 Order Info: 0667-1 - BMP Order Info: [id number] - MG Performed By: #### L 500.2500, L501.5200, L100.0100 #### [facility] [address] [place], [address] Basophil percentageOrdered B y: Jaycob Perera on 05-06-2024 Basophils/100 WBC (Bld) 0.6 % 0- [facility] Blood urea nitrogen (BUN)/cr eatinine ratioOrdered By: Jaycob Perera on 05-06-2024 Urea nitrogen/Creatinine [Mass ratio] 14.4 mg/mg 10- [facility] CBC W/Diff, Automatedon 04-20 Absolute Lymph 3.33 X10 3/uL Normal 0.83-4.[address] [facility] Comment on above: Order Comment: Order Date: 05/01/24 Order Info: 0184-1 - CBCD Performed By: #### L 500.2500, L501.5200, L100.0100 #### [facility] [address] [place], [address] Absolute Neut 7.3 X10 3/uL Normal 2.0-7.[address] [facility] Comment on above: Order Comment: Order Date: 05/01/24 Order Info: 0184-1 - CBCD Performed By: #### L 500.2500, L501.5200, L100.0100 #### [facility] [address] [place], [address] Basophils/100 WBC (Bld) 0.6 % Normal 0-[address] [facility] Comment on above: Order Comment: Order Date: 05/01/24 Order Info: 0184-1 - CBCD Performed By: #### L 500.2500, L501.5200, L100.0100 #### [facility] [address] [place], [address] Eosinophils/100 WBC (Bld) 0.8 % Normal 0-[address] [facility] Comment on above: Order Comment: Order Date: 05/01/24 Order Info: 0184-1 - CBCD Performed By: #### L 500.2500, L501.5200, L100.0100 #### [facility] [address] [place], [address] Erythrocyte distribution width (RBC) [Ratio] 12.7 % Normal 11.6-14.[address] [facility] Comment on above: Order Comment: Order Date: 05/01/24 Order Info: 0184-1 - CBCD Performed By: #### L 500.2500, L501.5200, L100.0100 #### [facility] [address] [place], [address] Hematocrit (Bld) [Volume fraction] 38.5 % Normal 37-[address] [facility] Comment on above: Order Comment: Order Date: 05/01/24 Order Info: 0184-1 - CBCD Performed By: #### L 500.2500, L501.5200, L100.0100 #### [facility] [address] [place], [address] Hemoglobin (Bld) [Mass/Vol] 12.6 g/dL Normal 12.0-15.[address] [facility] Comment on above: Order Comment: Order Date: 05/01/24 Order Info: 0184-1 - CBCD Performed By: #### L 500.2500, L501.5200, L100.0100 #### [facility] [address] [place], [address] IG% 0.400 Normal 0.0-0.[address] [facility] Comment on above: Order Comment: Order Date: 05/01/24 Order Info: [id number]- - CBCD Result Comment: IG% - Immature Granulocytes (promyelocytes, myelocytes and metamyelocytes) > 1% indicates that a LEFT SHIFT is Present. Performed By: #### L 500.2500, L501.5200, L100.0100 #### [facility] [address] [place], [address] Lymphocytes/100 WBC (Bld) 29.4 % Normal 19-[address] [facility] Comment on above: Order Comment: Order Date: 05/01/24 Order Info: 018- - CBCD Performed By: #### L 500.2500, L501.5200, L100.0100 #### [facility] [address] [place], [address] MCH (RBC) [Entitic mass] 29.6 pg Normal 27.0-32.[address] [facility] Comment on above: Order Comment: Order Date: 05/01/24 Order Info: 018- - CBCD Performed By: #### L 500.2500, L501.5200, L100.0100 #### [facility] [address] [place], [address] MCHC (RBC) [Mass/Vol] 32.7 g/dL Normal 32-36 [facility] Comment on above: Order Comment: Order Date: 05/01/24 Order Info: 018- - CBCD Performed By: #### L 500.2500, L501.5200, L100.0100 #### [facility] [address] [place], [address] MCV (RBC) [Entitic vol] 90.4 fL Normal 81-[address] [facility] Comment on above: Order Comment: Order Date: 05/01/24 Order Info: 0184-1 - CBCD Performed By: #### L 500.2500, L501.5200, L100.0100 #### [facility] [address] [place], [address] Monocytes/100 WBC (Bld) 4.2 % Normal 0-[address] [facility] Comment on above: Order Comment: Order Date: 05/01/24 Order Info: 0184-1 - CBCD Performed By: #### L 500.2500, L501.5200, L100.0100 #### [facility] [address] [place], [address] Neutrophils/100 WBC (Bld) 64.6 % Normal 47-[address] [facility] Comment on above: Order Comment: Order Date: 05/01/24 Order Info: 0184-1 - CBCD Performed By: #### L 500.2500, L501.5200, L100.0100 #### [facility] [address] [place], [address] Nucleated RBC (Bld) [#/Vol] 0 10*3/uL Normal 0-[address] [facility] Comment on above: Order Comment: Order Date: 05/01/24 Order Info: 0184-1 - CBCD Performed By: #### L 500.2500, L501.5200, L100.0100 #### [facility] [address] [place], [address] Platelet mean volume (Bld) [Entitic vol] 10.5 fL Normal 6.2-12.[address] [facility] Comment on above: Order Comment: Order Date: 05/01/24 Order Info: 0184-1 - CBCD Performed By: #### L 500.2500, L501.5200, L100.0100 #### [facility] [address] [place], [address] Platelets (Bld) [#/Vol] 343 10*3/uL Normal 150-[address] [facility] Comment on above: Order Comment: Order Date: 05/01/24 Order Info: 0184-1 - CBCD Performed By: #### L 500.2500, L501.5200, L100.0100 #### [facility] [address] [place], [address] RBC (Bld) [#/Vol] 4.26 10*6/uL Normal 4.2-5.4 [facility] Comment on above: Order Comment: Order Date: 05/01/24 Order Info: 0184-1 - CBCD Performed By: #### L 500.2500, L501.5200, L100.0100 #### [facility] [address] [place], [address] RDW SD 41.5 fl Normal 35.1-43.[address] [facility] Comment on above: Order Comment: Order Date: 05/01/24 Order Info: 0184- - CBCD Performed By: #### L 500.2500, L501.5200, L100.0100 #### [facility] [address] [place], [address] WBC (Bld) [#/Vol] 11.3 10*3/uL High 4.4-11.0 [facility] Comment on above: Order Comment: Order Date: 05/01/24 Order Info: 0184-1 - CBCD Performed By: #### L 500.2500, L501.5200, L100.0100 #### [facility] [address] [place], [address] Carbon dioxide measurementOr dered By: Jaycob Perera on 05-06-2024 CO2 [Moles/Vol] 26.0 mmol/L 21.0-32.[address] [facility] Chloride measurementOrdered By: Jaycob Perera on 05-06-2024 Chloride [Moles/Vol] 107 mmol/L 98-107 [facility] Eosinophil percentageOrdered By: Jaycob Perera on 05-06-2024 Eosinophils/100 WBC (Bld) 0.8 % 0-[address] [facility] Erythrocyte distribution wid th ratioOrdered By: Jaycob Perera on 05-06-2024 Erythrocyte distribution width (RBC) [Ratio] 12.7 % 11.6-14.[address] [facility] Erythrocyte distribution wid th standard deviationOrdered By: Jaycob Perera on 05-06-2024 Erythrocyte distribution width (RBC) [Ratio] 41.5 fl 35.1-43.[address] [facility] Glomerular filtration rate ( GFR) estimationOrdered By: Jaycob Perera on 05-06-2024 GFR/1.73 sq M.predicted among non-blacks MDRD (S/P/Bld) [Vol rate/Area] 55 mL/min/{1.73_m2} Low >[address] [facility] Comment on above: Non- GFR Calc Glucose measurementOrdered B y: Jaycob Perera on 05-06-2024 Glucose [Mass/Vol] 83 mg/dL 74-106 [facility] Hematocrit Auto (Bld) [Volum e fraction]Ordered By: Jaycob Perera on 05-06-2024 Hematocrit (Bld) [Volume fraction] 38.5 % 37-[address] [facility] Hemoglobin measurementOrdere d By: Jaycob Perera on 05-06-2024 Hemoglobin (Bld) [Mass/Vol] 12.6 g/dL 12.0-15.[address] [facility] Immature granulocytes/100 WB C Auto (Bld)Ordered By: Jaycob Perera on 05-06-2024 Immature granulocytes/100 WBC (Bld) 0.400 % 0.0-0.[address] [facility] Comment on above: IG% - Immature Granu locytes (promyelocytes, myelocytes and metamyelocytes) > 1% indicates that a LEFT SHIFT is Present. MCV (mean corpuscular volume ) determinationOrdered By: Jaycob Perera on 05-06-2024 MCV (RBC) [Entitic vol] 90.4 fL 81-[address] [facility] Magnesiumon 05-06-2024 Magnesium [Mass/Vol] 2.4 mg/dL Normal 1.6-2.6 [facility] Comment on above: Order Comment: Order Date: 05/01/24 Order Info: 0667-1 - BMP Order Info: 86162-2 - MG Performed By: #### L 500.2500, L501.5200, L100.0100 #### [facility] [place], [address] Magnesium measurementOrdered By: aJycob Perera on 05-06-2024 Magnesium [Mass/Vol] 2.4 mg/dL 1.6-2.6 [facility] Mean corpuscular hemoglobin (MCH) determinationOrdered By: Jaycob Perera on 05-06-2024 MCH (RBC) [Entitic mass] 29.6 pg 27.0-32.[address] [facility] Mean corpuscular hemoglobin concentration (MCHC) determinationOrdered By: Jaycob Perera on 05-06-2024 MCHC (RBC) [Mass/Vol] 32.7 g/dL 32-36 [facility] Mean platelet volume determi nationOrdered By: Jaycob Perera on 05-06-2024 Platelet mean volume (Bld) [Entitic vol] 10.5 fL 6.2-12.[address] [facility] Monocyte percentageOrdered B y: Jaycob Perera on 05-06-2024 Monocytes/100 WBC (Bld) 4.2 % 0-[address] [facility] Neutrophil percentageOrdered By: Jaycob Perera on 05-06-2024 Neutrophils/100 WBC (Bld) 64.6 % 47-[address] [facility] Nucleated red blood cell per centageOrdered By: Jaycob Perera on 05-06-2024 Nucleated RBC/100 WBC (Bld) [Ratio] 0 % 0-[address] [facility] Platelet countOrdered By: Jen Perera on 05-06-2024 Platelets (Bld) [#/Vol] 343 10*3/uL 150-[address] [facility] Potassium measurementOrdered By: Jaycob Perera on 05-06-2024 Potassium [Moles/Vol] 3.6 mmol/L 3.5-5.1 [facility] RBC Auto (Bld) [#/Vol]Ordere d By: Jaycob Perera on 05-06-2024 RBC (Bld) [#/Vol] 4.26 10*6/uL 4.2-5.4 [facility] Serum anion gap measurementO rdered By: Jaycob Perera on 05-06-2024 Anion gap [Moles/Vol] 7 mmol/L 5-15 [facility] Serum or plasma calcium ting urement (mass/volume)Ordered By: Jaycob Perera on 05-06-2024 Calcium [Mass/Vol] 9.5 mg/dL 8.5-10.1 [facility] Serum or plasma creatinine m easurement (mass/volume)Ordered By: Jaycob Perera on 05-06-2024 Creatinine [Mass/Vol] 1.32 mg/dL High 0.55-1.02 [facility] Comment on above: The validity of the calculated GFR & GFRAA in patients over 70 years has not been determined. Clinical correlation is essential. Serum or plasma urea nitroge n measurement (mass/volume)Ordered By: Jaycob Perera on 05-06-2024 Urea nitrogen [Mass/Vol] 19 mg/dL High 7-[address] [facility] Sodium levelOrdered By: Jaycob Perera on 05-06-2024 Sodium [Moles/Vol] 140 mmol/L 136-145 [facility] White blood cell (WBC) count Ordered By: Jaycob Perera on 05-06-2024 WBC (Bld) [#/Vol] 11.3 10*3/uL High 4.4-11.0 [facility] Head/Neck Soft Tissueon -2 Head/Neck Soft Tissue [facility] [address] [place] [address] Head/Neck Soft Tissue MR#: [id number] Acct: [id number] Name: ADDIE MENA Rep #: [id number] : 2005 F 18 From: Omega hill MD PCP: Dr. Jaycob Perera MD Status: [facility] Study: Head/Neck Soft Tissue Date of Exam: 04/08/24 Exam# [id number] Ordering Dr: Jaycob Perera MD [id number] STUDY: THYROID ULTRASOUND REASON FOR EXAM: Female, 18 years old. Thyroid nodule. TECHNIQUE: Ultrasound evaluation of the thyroid was performed with real-time and static clements-scale imaging. COMPARISON: None. FINDINGS: RIGHT LOBE: The right lobe of the thyroid gland measures 3.9 cm x 1.1 cm x 1.1 cm. There is a homogeneous echotexture. There are no demonstrated solid, cystic or complex lesions. LEFT LOBE: The left lobe of the thyroid gland measures 3.2 cm x 1.2 cm x 1.1 cm. There is a homogeneous echotexture. There are no demonstrated solid, cystic or complex lesions. ISTHMUS: The isthmus measures 1 mm. The regional lymph nodes are normal. US/Head/Neck Soft Tissue IMPRESSION: Normal ultrasound examination of the thyroid. Electronically Signed: Omega Ray MD at 15:10 EST , CC: Dr. Jaycob Perera MD Supervisor [employer]: Signed Normal [facility] Thyroglobulin w/Anti-TG ABon 04-06-2024 Anti-TG AB < 1.0 Normal 0.0-0.[address] [facility] Comment on above: Order Comment: PLEAS E ADD TSI TO BLOOD DRAWN Result Comment: Thyr oglobulin Antibody measured by [employer] It should be noted that the presence of thyroglobulin antibodies may not be pathogenic nor diagnostic, especially at very low levels. The assay philosophy instructor has found that four percent of individuals without evidence of thyroid disease or autoimmunity will have positive TgAb levels up to 4 IU/mL. Performed By: #### L 3300.6893, L3300.6900, L3400.4700 #### [facility] [address] [place], [place], [id number] THYROGLOB QUANT 12.6 ng/mL Normal 1.5-38.[address] [facility] Comment on above: Order Comment: ERIN Moore ADD TSI TO BLOOD DRAWN Result Comment: Acco rding to the National Academy of Clinical Biochemistry, the reference interval for Thyroglobulin (TG) should be related to euthyroid patients and not for patients who underwent thyroidectomy. TG reference intervals for these patients depend on the residual mass of the thyroid tissue left after surgery. Establishing a post-operative baseline is recommended. The assay limit of quantitation is 0.1 ng/mL Thyroglobulin measured by [employer] [place] [employer] Performed By: #### L 3300.6820, L3300.6900, L3400.4700 #### [facility] [address] [place], [place], [id number] Thyroid Peroxidase ABon 03-20 THYR PEROX AB 18 IU/mL Normal 0-[address] [facility] Comment on above: Order Comment: ERIN Moore ADD TSI TO BLOOD DRAWN Result Comment: Perf ormed at: [facility] [address] [id number] Trout Farmer: Price Vang MD, Phone: [phone] Performed at: [facility] [address] [id number] Trout Farmer: Hari Dunn PhD, Phone: [phone] Performed By: #### L 1630.4620, [id number], [id number] #### [facility] [address] [place], [place], [id number] Thyroid Stim Immunoglobon THY STIM IMMUNO <0.10 Normal 0.00-0.[address] [facility] Comment on above: Order Comment: ERIN Moore ADD TSI TO BLOOD DRAWN Performed By: #### L 3300.6820, L3300.6900, L3400.4700 #### [facility] [address] [place], [address] CBC W/Diff, Automatedon 01-03 24-2024 Absolute Lymph 2.29 X10 3/uL Normal 0.83-4.[address] [facility] Comment on above: Order Comment: Order Date: 04/03/24 Order Info: 0184-1 - CBCD Performed By: #### L 500.4050, L501.9520, L100.0100, L506.0400 #### [facility] [address] [place], [address] Absolute Neut 12.1 X10 3/uL High 2.0-7.[address] [facility] Comment on above: Order Comment: Order Date: 04/03/24 Order Info: 018- - CBCD Performed By: #### L 500.4050, L501.9520, L100.0100, L506.0400 #### [facility] [address] [place], [address] Basophils/100 WBC (Bld) 0.2 % Normal 0-[address] [facility] Comment on above: Order Comment: Order Date: 04/03/24 Order Info: 0184- - CBCD Performed By: #### L 500.4050, L501.9520, L100.0100, L506.0400 #### [facility] [address] [place], [address] Eosinophils/100 WBC (Bld) 0.5 % Normal 0-[address] [facility] Comment on above: Order Comment: Order Date: 04/03/24 Order Info: 0184- - CBCD Performed By: #### L 500.4050, L501.9520, L100.0100, L506.0400 #### [facility] [address] [place], [address] Erythrocyte distribution width (RBC) [Ratio] 12.4 % Normal 11.6-14.[address] [facility] Comment on above: Order Comment: Order Date: 04/03/24 Order Info: 0184-1 - CBCD Performed By: #### L 500.4050, L501.9520, L100.0100, L506.0400 #### [facility] [address] [place], [address] Hematocrit (Bld) [Volume fraction] 39.5 % Normal 37-[address] [facility] Comment on above: Order Comment: Order Date: 04/03/24 Order Info: 0184-1 - CBCD Performed By: #### L 500.4050, L501.9520, L100.0100, L506.0400 #### [facility] [address] [place], [address] Hemoglobin (Bld) [Mass/Vol] 13.0 g/dL Normal 12.0-15.[address] [facility] Comment on above: Order Comment: Order Date: 04/03/24 Order Info: 0184-1 - CBCD Performed By: #### L 500.4050, L501.9520, L100.0100, L506.0400 #### [facility] [address] [place], [address] IG% 0.400 Normal 0.0-0.[address] [facility] Comment on above: Order Comment: Order Date: 04/03/24 Order Info: 0184-1 - CBCD Result Comment: IG% - Immature Granulocytes (promyelocytes, myelocytes and metamyelocytes) > 1% indicates that a LEFT SHIFT is Present. Performed By: #### L 500.4050, L501.9520, L100.0100, L506.0400 #### [facility] [address] [place], [address] Lymphocytes/100 WBC (Bld) 14.9 % Low 19-[address] [facility] Comment on above: Order Comment: Order Date: 04/03/24 Order Info: 0184-1 - CBCD Performed By: #### L 500.4050, L501.9520, L100.0100, L506.0400 #### [facility] [address] [place], [address] MCH (RBC) [Entitic mass] 29.0 pg Normal 27.0-32.[address] [facility] Comment on above: Order Comment: Order Date: 04/03/24 Order Info: 0184-1 - CBCD Performed By: #### L 500.4050, L501.9520, L100.0100, L506.0400 #### [facility] [address] [place], [address] MCHC (RBC) [Mass/Vol] 32.9 g/dL Normal 32-36 [facility] Comment on above: Order Comment: Order Date: 04/03/24 Order Info: 0184-1 - CBCD Performed By: #### L 500.4050, L501.9520, L100.0100, L506.0400 #### [facility] [address] [place], [address] MCV (RBC) [Entitic vol] 88.2 fL Normal 81-[address] [facility] Comment on above: Order Comment: Order Date: 04/03/24 Order Info: 0184-1 - CBCD Performed By: #### L 500.4050, L501.9520, L100.0100, L506.0400 #### [facility] [address] [place], [address] Monocytes/100 WBC (Bld) 5.4 % Normal 0-[address] [facility] Comment on above: Order Comment: Order Date: 04/03/24 Order Info: 0184-1 - CBCD Performed By: #### L 500.4050, L501.9520, L100.0100, L506.0400 #### [facility] [address] [place], [address] Neutrophils/100 WBC (Bld) 78.6 % High 47-[address] [facility] Comment on above: Order Comment: Order Date: 04/03/24 Order Info: 0184-1 - CBCD Performed By: #### L 500.4050, L501.9520, L100.0100, L506.0400 #### [facility] [address] [place], [address] Nucleated RBC (Bld) [#/Vol] 0 10*3/uL Normal 0-[address] [facility] Comment on above: Order Comment: Order Date: 04/03/24 Order Info: 0184-1 - CBCD Performed By: #### L 500.4050, L501.9520, L100.0100, L506.0400 #### [facility] [address] [place], [address] Platelet mean volume (Bld) [Entitic vol] 10.2 fL Normal 6.2-12.[address] [facility] Comment on above: Order Comment: Order Date: 04/03/24 Order Info: 0184-1 - CBCD Performed By: #### L 500.4050, L501.9520, L100.0100, L506.0400 #### [facility] [address] [place], [address] Platelets (Bld) [#/Vol] 345 10*3/uL Normal 150-[address] [facility] Comment on above: Order Comment: Order Date: 04/03/24 Order Info: 0184-1 - CBCD Performed By: #### L 500.4050, L501.9520, L100.0100, L506.0400 #### [facility] [address] [place], [address] RBC (Bld) [#/Vol] 4.48 10*6/uL Normal 4.2-5.4 [facility] Comment on above: Order Comment: Order Date: 04/03/24 Order Info: 0184-1 - CBCD Performed By: #### L 500.4050, L501.9520, L100.0100, L506.0400 #### [facility] [address] [place], [address] RDW SD 39.9 fl Normal 35.1-43.[address] [facility] Comment on above: Order Comment: Order Date: 04/03/24 Order Info: 0184-1 - CBCD Performed By: #### L 500.4050, L501.9520, L100.0100, L506.0400 #### [facility] [address] [place], [address] WBC (Bld) [#/Vol] 15.3 10*3/uL High 4.4-11.0 [facility] Comment on above: Order Comment: Order Date: 04/03/24 Order Info: 0184-1 - CBCD Performed By: #### L 500.4050, L501.9520, L100.0100, L506.0400 #### [facility] [address] [place], [address] Comprehensive Metabolic Prof ilon 04-03-2024 Albumin [Mass/Vol] 4.2 g/dL Normal 3.2-5.0 [facility] Comment on above: Order Comment: Order Date: 04/03/24Order Info: 0786-1 - CMPOrder Info: 3016-3 - TSHOrder Info: 3024-7 - T4F Performed By: #### L 3000.0375 #### [facility] [address] [place], [address] Albumin/Globulin [Mass ratio] 1.1 {ratio} Normal 0.9-2.[address] [facility] Comment on above: Order Comment: Order Date: 04/03/24Order Info: 0786-1 - CMPOrder Info: 3016-3 - TSHOrder Info: 3024-7 - T4F Performed By: #### L 3000.0375 #### [facility] [address] [place], [address] ALK P 95 U/L Normal 45-[address] [facility] Comment on above: Order Comment: Order Date: 04/03/24Order Info: 0786-1 - CMPOrder Info: 3016-3 - TSHOrder Info: 3024-7 - T4F Performed By: #### L 3000.0375 #### [facility] [address] [place], [address] ALT [Catalytic activity/Vol] 19 U/L Normal 13-[address] [facility] Comment on above: Order Comment: Order Date: 04/03/24Order Info: 0786-1 - CMPOrder Info: 3016-3 - TSHOrder Info: 3024-7 - T4F Performed By: #### L 3000.0375 #### [facility] [address] [place], [address] AST [Catalytic activity/Vol] 15 U/L Normal 15-[address] [facility] Comment on above: Order Comment: Order Date: 04/03/24Order Info: 0786-1 - CMPOrder Info: 3016-3 - TSHOrder Info: 3024-7 - T4F Performed By: #### L 3000.0375 #### [facility] [address] [place], [address] Bilirubin [Mass/Vol] 1.10 mg/dL High 0.20-1.00 [facility] Comment on above: Order Comment: Order Date: 04/03/24Order Info: 0786-1 - CMPOrder Info: 3016-3 - TSHOrder Info: 3024-7 - T4F Result Comment: For patients on eltrombopag therapy, use of Dimension [place] TBIL is not recommended. Performed By: #### L 3000.0375 #### [facility] [address] [place], [address] BUN/CRE 17.1 RATIO Normal 10-[address] [facility] Comment on above: Order Comment: Order Date: 04/03/24Order Info: 0786-1 - CMPOrder Info: 3016-3 - TSHOrder Info: 3024-7 - T4F Performed By: #### L 3000.0375 #### [facility] [address] [place], [address] CA,Total 9.4 mg/dL Normal 8.5-10.[address] [facility] Comment on above: Order Comment: Order Date: 04/03/24Order Info: 0786-1 - CMPOrder Info: 3016-3 - TSHOrder Info: 3024-7 - T4F Performed By: #### L 3000.0375 #### [facility] [address] [place], [address] Chloride [Moles/Vol] 107 mmol/L Normal 98-107 [facility] Comment on above: Order Comment: Order Date: 04/03/24Order Info: 0786-1 - CMPOrder Info: 3016-3 - TSHOrder Info: 3024-7 - T4F Performed By: #### L 3000.0375 #### [facility] [address] [place], [address] CO2 [Moles/Vol] 23.0 mmol/L Normal 21.0-32.[address] [facility] Comment on above: Order Comment: Order Date: 04/03/24Order Info: 0786-1 - CMPOrder Info: 3016-3 - TSHOrder Info: 3024-7 - T4F Performed By: #### L 3000.0375 #### [facility] [address] [place], [address] Creatinine [Mass/Vol] 0.82 mg/dL Normal 0.55-1.02 [facility] Comment on above: Order Comment: Order Date: 04/03/24Order Info: 0786-1 - CMPOrder Info: 3016-3 - TSHOrder Info: 3024-7 - T4F Result Comment: The validity of the calculated GFR GFRAA in patients over 70 years has not been determined. Clinical correlation is essential. Performed By: #### L 3000.0375 #### [facility] [address] [place], [address] EST GFR - AA 115 mL/min Normal >[address] [facility] Comment on above: Order Comment: Order Date: 04/03/24Order Info: 0786-1 - CMPOrder Info: 3016-3 - TSHOrder Info: 3024-7 - T4F Result Comment: Afri can [place] GFR Calc Performed By: #### L 3000.0375 #### [facility] [address] [place], [address] GAP 10 Normal 5-[address] [facility] Comment on above: Order Comment: Order Date: 04/03/24Order Info: 0786-1 - CMPOrder Info: 6-3 - TSHOrder Info: 3024-7 - T4F Performed By: #### L 3000.0375 #### [facility] [address] [place], [address] GFR/1.73 sq M.predicted among non-blacks MDRD (S/P/Bld) [Vol rate/Area] 95 mL/min/{1.73_m2} Normal >[address] [facility] Comment on above: Order Comment: Order Date: 04/03/24Order Info: 0786-1 - CMPOrder Info: 3016-3 - TSHOrder Info: 3024-7 - T4F Result Comment: Non- GFR Calc Performed By: #### L 3000.0375 #### [facility] [address] [place], [address] Globulin (S) [Mass/Vol] 3.8 g/dL Normal 2.2-4.[address] [facility] Comment on above: Order Comment: Order Date: 04/03/24Order Info: 0786-1 - CMPOrder Info: 3016-3 - TSHOrder Info: 3024-7 - T4F Performed By: #### L 3000.0375 #### [facility] [address] [place], [address] Glucose [Mass/Vol] 125 mg/dL High 74-106 [facility] Comment on above: Order Comment: Order Date: 04/03/24Order Info: 0786-1 - CMPOrder Info: 3016-3 - TSHOrder Info: 3024-7 - T4F Result Comment: Fast ing Glucose result from 100 to 125 mg/dL suggests IMPAIRED HOMEOSTASIS per A.D.A. criteria. Performed By: #### L 3000.0375 #### [facility] [address] [place], [address] Potassium [Moles/Vol] 3.4 mmol/L Low 3.5-5.1 [facility] Comment on above: Order Comment: Order Date: 04/03/24Order Info: 0786-1 - CMPOrder Info: 3016-3 - TSHOrder Info: 3024-7 - T4F Performed By: #### L 3000.0375 #### [facility] [address] [place], [address] Sodium [Moles/Vol] 140 mmol/L Normal 136-145 [facility] Comment on above: Order Comment: Order Date: 04/03/24Order Info: 0786-1 - CMPOrder Info: 3016-3 - TSHOrder Info: 3024-7 - T4F Performed By: #### L 3000.0375 #### [facility] [address] [place], [address] T PROT 8.0 g/dL Normal 6.4-8.[address] [facility] Comment on above: Order Comment: Order Date: 04/03/24Order Info: 0786-1 - CMPOrder Info: 3016-3 - TSHOrder Info: 3024-7 - T4F Performed By: #### L 3000.0375 #### [facility] [address] [place], [address] Urea nitrogen [Mass/Vol] 14 mg/dL Normal 7-[address] [facility] Comment on above: Order Comment: Order Date: 04/03/24Order Info: 0786-1 - CMPOrder Info: 3016-3 - TSHOrder Info: 3024-7 - T4F Performed By: #### L 3000.0375 #### [facility] [address] [place], [address] Emergency Department Summary on 04-03-2024 Emergency Department Summary [facility] Medical Records Department [address] [place] [address] Emergency Department Summary 04/03/24 MR#: [id number] Acct: [id number] Name: ADDIE MENA Rep #: [id number] : 2005 18 From: Medardo Gill DO PCP: Care Physician,No Primary Status:DEP ER Location: ED HPI History of Present Illness Chief Complaint: Sore Throat Informant: patient Narrative Narrative: Patient is a 18-year-old female with past medical history of pseudoseizures. She states multiple people at work have been sick. She reports that she had sore throat with nasal congestion and cough from was 2 weeks and was seen in urgent care and placed on amoxicillin. She states she took 7 days of the antibiotic and felt better for 1 to 2 days. However in the last 1 to 2 days she has returned with congestion drainage cough and sore throat. Patient has concern that the antibiotic did not treat her infection as symptoms returned shortly after stopping it and therefore comes in for evaluation [facility] Medical History Pseudoseizures Home Medications ???Medication ???Instructions ???Recorded ???Last Taken ???Type aripiprazole 2 mg tablet 2 mg PO DAILY 05/29/21 Unknown History calcium 600 mg PO/SL DAILY 05/29/21 Unknown History fluoxetine 40 mg capsule 40 mg PO DAILY 05/29/21 Unknown History trazodone 100 mg tablet 100 mg PO DAILY 05/29/21 Unknown History cyclobenzaprine 10 mg tablet 10 mg PO TID PRN Muscle Spasm #20 11/17/23 Unknown Rx TABLETS ibuprofen 600 mg tablet 600 mg PO Q6H PRN PRN pain #20 11/17/23 Unknown Rx TABLETS benzonatate 200 mg capsule 200 mg PO TID PRN cough 10 days 04/03/24 Unknown Rx #30 caps prednisone 20 mg tablet 40 mg (2 x 20 mg) PO DAILY 7 days 04/03/24 Unknown Rx #14 tabs Allergy/AdvReac Type Severity Reaction Status Date / Time No Known Allergies Allergy Verified 04/02/24 22:49 Family History Father Diabetes Brother Depression ADD (attention deficit disorder) Sister Depression Surgical History History of artificial skin graft Hx of appendectomy Social History Smoking Status: Current every day smoker tobacco type: e-cigarettes alcohol intake: never substance use type: does not use ROS ROS ED Constitutional Constitutional ED: Denies chills or fever(s) Eyes Eyes: Denies blurry vision or change in vision ENT ENT ED: Reports rhinorrhea and sore throat Cardiovascular Cardiovascular: Denies chest pain Respiratory/Chest Respiratory/Chest: Reports cough; Denies dyspnea Gastrointestinal Gastrointestinal: Denies abdominal pain, diarrhea, nausea or vomiting Genitourinary Genitourinary ED: Denies dysuria Musculoskeletal Musculoskeletal: Reports myalgias Integumentary Denies rash Neurologic Neurologic: Denies headache(s) Hematologic/Lymphatic Hematologic/Lymphatic : Denies easy bleeding or easy bruising Allergic/Immunologic Allergic/Immunologic ED: Denies mouth swelling or tongue swelling EXAM Physical Exam Const Vital Signs: 04/02/24 22:48 04/03/24 00:39 Temperature 98.1 F 97.9 F Temperature Source Oral Pulse Rate 69 69 Respiratory Rate 16 18 Blood Pressure 137/106 H 121/74 H Blood Pressure Mean 116 89 Pulse Ox 100 99 Oxygen Delivery Method Room Air Positive well nourished and well developed General Appearance ED: well developed; Negative for pallor HEENT HEENT Narrative: Bilateral TMs are retracted but show no secondary changes to suggest infection Nasal mucosa is hyperemic and boggy with enlarged inferior nasal turbinates There is cobblestoning noted in the posterior pharynx consistent with sinus drainage without airway edema or compromise No tongue or lip swelling no oral lesions; no secondary findings to suggest infection No trismus change in voice or difficulty with secretions Eyes PERRL and EOMs intact bilaterally Neck supple Neck Narrative: No nuchal rigidity or meningeal signs Anterior several lymphadenopathy is noted bilaterally Resp normal respiratory effort and clear to auscultation bilaterally Cardio regular rate and regular rhythm Extremity normal to inspection Neuro oriented x3, CN's II-XII intact bilaterally and no sensory deficits noted Sensorium / Orientation: alert Motor Exam: strength 5/5 throughout Psych Mood Affect: anxious Skin no rashes or lesions noted and no wounds General Skin Exam: Negative for jaundice or pallor MDM MDM MDM Narrative Medical decision making narrative: Patient arrived to the ER hypertensive but otherwise with stable vitals. She reported (more content not included)... Normal [facility] Hemoglobin A1con 04-03-2024 HbA1c (Bld) [Mass fraction] 5.5 % Normal 3.8-5.[address] [facility] Comment on above: Order Comment: Order Date: 04/03/24Order Info: 4548-4 - A1C Result Comment: Norm al < 5.7 % Prediabetic 5.7 - 6.4 % Diabetic >or= 6.5 % Please note range changes. Performed By: #### L 3000.0375 #### [facility] [address] [place], [place], [address] T4 Free Directon 04-03-2024 T4 FREE DIRECT 1.09 ng/dL Normal 0.76-1.[address] [facility] Comment on above: Order Comment: Order Date: 04/03/24Order Info: [id number] - CMPOrder Info: 3016-3 - TSHOrder Info: 3024-7 - T4F Performed By: #### L 3000.0375 #### [facility] [address] [place], [address] Thyroid Stim Hormone (TSH)on 04-03-2024 TSH 0.293 uIU/mL Low 0.358-3.[address] [facility] Comment on above: Order Comment: Order Date: 04/03/24Order Info: [id number] - CMPOrder Info: 3016-3 - TSHOrder Info: 3024-7 - T4F Performed By: #### L 3000.0375 #### [facility] [address] [place], [address] Chest PA and Lateralon 04-02 Chest PA and Lateral [facility] [address] [place], [place] [address] (182 Chest PA and Lateral MR#: [id number] Acct: [id number] Name: ADDIE MENA GARCIA Rep #: [id number] : 2005 F 18 From: Kassandra Casillas MD PCP: Care Physician,No Primary Status: REG ER Study: Chest PA and Lateral Date of Exam: 04/02/24 Exam# [id number] Ordering Dr: Medardo Gill DO [id number] EXAM: XR CHEST, 2 VIEWS CLINICAL INDICATION: cough TECHNIQUE: Frontal and lateral views of the chest. COMPARISON: No relevant prior studies available. FINDINGS: LUNGS AND PLEURAL SPACES: Unremarkable. No consolidation or edema. No pneumothorax. No effusion. HEART: Unremarkable. Cardiac silhouette not enlarged. MEDIASTINUM: Central airways and mediastinal contour are unremarkable. BONES/JOINTS: Unremarkable. No acute fracture. SOFT TISSUES: Unremarkable. RAD/Chest PA and Lateral IMPRESSION: No radiographic evidence of acute cardiopulmonary disease. Electronically Signed: Kassandra Casillas MD at 0:35 EST , CC: Medardo Gill DO; No Primary Care Physician Supervisor Self Service Store: S[facility] ADDIE MENA ([id number]) 3 F Date Time Provider Department 03/21/24 8:15 AM DWAYNE ABDI [facility] During your visit today, we recorded the following information about you: Temperature Pulse Respiration Blood pressure 97.8 degrees 80/minute 20/minute 108/76 Weight 55.8 kg Dwayne Abdi APRN.FOXING CUTTING MACHINE OPERATOR 03/21/2024 9:22 AM Signed Subjective HPI Nontoxic-appearing female presents urgent care chief complaint sore throat sinus pressure fatigue. States sinus pressure most bothersome symptom. OTC medications none. Has had episodic nosebleeds over the last month. Denies any significant pain. No fevers. Denies chance of . Is not breast-feeding. Past medical history prescription medications allergies reviewed. .Patient presents with: Sinus Problem: Congestion, BRAGA, sore throat, drainage x 1 week Nosebleeds x 1 month PAST MEDICAL HISTORY Diagnosis Date NEGATIVE HISTORY OF PAST SURGICAL HISTORY Procedure Laterality Date APPENDECTOMY SKIN GRAFT HX ALLERGIES Patient has no known allergies. MEDICATIONS No prescriptions on file. FAMILY HISTORY Adopted: Yes Problem Relation Age of Onset Diabetes Father Diabetes Paternal Uncle Social History Tobacco Use Smoking status: Never Smokeless tobacco: Never Vaping Use Vaping status: Former Substance Use Topics Alcohol use: Not Currently Drug use: Not Currently BP 108/76 Pulse 80 Temp 36.6 ?C (97.8 ?F) Resp 20 Wt 55.8 kg (123 lb 0.3 oz) LMP 01/08/2024 (Approximate) SpO2 98% Review of Systems Constitutional: Negative for chills, fever and malaise/fatigue. HENT: Positive for congestion, nosebleeds and sore throat. Negative for ear discharge, ear pain and sinus pain. Eyes: Negative for blurred vision, pain, discharge and redness. Respiratory: Positive for cough. Negative for hemoptysis, sputum production, shortness of breath, wheezing and stridor. Cardiovascular: Negative for chest pain. Gastrointestinal: Negative for abdominal pain, diarrhea, nausea and vomiting. Musculoskeletal: Negative for myalgias. Skin: Negative for itching and rash. Neurological: Negative for dizziness and headaches. Objective Physical Exam Constitutional: General: She is not in acute distress. Appearance: She is not diaphoretic. HENT: Head: Normocephalic. Jaw: No trismus, tenderness, swelling or pain on movement. Nose: Congestion present. Right Nostril: No epistaxis. Left Nostril: No epistaxis. Mouth/Throat: Mouth: Mucous membranes are moist. Pharynx: Oropharynx is clear. Uvula midline. No pharyngeal swelling, oropharyngeal exudate, posterior oropharyngeal erythema or uvula swelling. Eyes: Conjunctiva/sclera: Conjunctivae normal. Pupils: Pupils are equal, round, and reactive to light. Cardiovascular: Rate and Rhythm: Normal rate and regular rhythm. Heart sounds: Normal heart sounds. Pulmonary: Effort: Pulmonary effort is normal. No tachypnea, accessory muscle usage or respiratory distress. Breath sounds: Normal breath sounds. No stridor. No wheezing, rhonchi or rales. Abdominal: General: There is no distension. Palpations: Abdomen is soft. Tenderness: There is no abdominal tenderness. There is no guarding or rebound. Musculoskeletal: Cervical back: Normal range of motion and neck supple. No edema, erythema, rigidity or tenderness. No pain with movement. Normal range of motion. Lymphadenopathy: Cervical: No cervical adenopathy. Skin: General: Skin is warm and dry. Neurological: Mental Status: She is alert and oriented to person, place, and time. ASSESSMENT/PLAN: 1. Bacterial sinusitis - ICD9: 473.9, 041.9, ICD10: J32.9, B96.89 Diagnosis sinusitis. Encouraged on the use of saline sprays. If nosebleeds persist follow-up with ENT. Epistaxis management discussed with patient. Patient was educated on supportive therapies. Patient will follow up with primary care provider as needed. Patient was instructed to immediately proceed to emergency room for any new, worsening, or symptoms lasting longer than anticipated. The patient's clinical presentation is otherwise unremarkable at this time. Based on exam and clinical finding, the patient is stable for discharge. Plan of care was discussed with patient. Patient verbalizes understanding and agrees to plan of care. This note was generated using Ayla software. It may contain errors in wording, punctuation, or spelling. Dwayne Abdi APRN.FOXING CUTTING MACHINE OPERATOR Allergies As of Date: 03/21/2024 (No Known Allergies) Date Reviewed: 03/21/2024 Reviewed by: Monik Calle MA - Fully Assessed Reason for Visit: Sinus Problem [99] Cmt: Congestion, BRAGA, sore throat, drainage x 1 week Nosebleeds x 1 month Primary Visit Diagnosis:Bacterial sinusitis [J32.9, B96.89] Order(s):oxymetazolin e (AFRIN, OXYMETAZOLINE,) 0.05 % nasal sprayUse (more content not included)... Normal [facility] CNOVon 01-22-2024 CNOV Office Visit (OBGYWM ) ADDIE MENA ([id number]) 3 F Date Time Provider Department 01/22/24 11:40 AM PORFIRIO SCOTT During your visit today, we recorded the following information about you: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 above: Performed By: #### Amara RUGU #### [place] [address] Fentanyl (u) Negative Normal Negative [facility] ([place]) Comment on above: Result Comment: Test ing has been performed FOR MEDICAL PURPOSES ONLY. Performed By: #### Amara RUGU #### [place] [address] Methadone Ql (U) Negative Normal Negative [facility] ([place]) Comment on above: Performed By: #### D RUGU #### [place] [phone] Opiate (u) Negative Normal Negative [facility] ([place]) Comment on above: Performed By: #### D RUGU #### [place] [phone] Oxycodone (u) Negative Normal Negative [facility] ([place]) Comment on above: Result Comment: Test ing has been performed FOR MEDICAL PURPOSES ONLY. Performed By: #### D RUGU #### [place] [address] PCP (u) Negative Normal Negative [facility] ([place]) Comment on above: Performed By: #### D RUGU #### [facility] [address] [place] [address] Propoxyphene (u) Negative Normal Negative [facility] ([place]) Comment on above: Performed By: #### D RUGU #### [facility] [address] [place] [address] U pH Drug Scrn 6.0 Normal 5.0-8.0 [facility] ([place]) Comment on above: Performed By: #### D RUGU #### [facility] [address] [place] [address] Urine Drugs screened: See Below Normal [facility] ([place]) Comment on above: Result Comment: This drug screen is a presumptive screening only. No confirmation will be performed unless requested. Drugs screened include: Threshold Amphetamines/Methamphetamines 1,000 ng/mL Barbiturates 200 ng/mL Benzodiazepine metabolites 200 ng/mL Cannabinoids (THC metabolites) 50 ng/mL Benzoylecognine (Cocaine metab) 300 ng/mL Opiates 300 ng/mL Phencyclidine (PCP) 25 ng/mL Methadone 300 ng/mL Propoxyphene 300 ng/mL Fentanyl 1.0 ng/mL Oxycodone 100 ng/mL Testing has been performed FOR MEDICAL PURPOSES ONLY. Performed By: #### D RUGU #### [address] [address] LABORATORYOrdered By: Aaron Silva on 08-31-2023 Appearance (U) Clear (08/31/23 4:17 AM) [facility] Beta HCG ( test) Ql (U) Negative (08/31/23 4:17 AM) [facility] Bilirubin Urine Dipstick Negative (08/31/23 4:17 AM) [facility] Blood Urine Dipstick Negative (08/31/23 4:17 AM) [facility] Glucose Urine Dipstick Negative (08/31/23 4:17 AM) [facility] Ketones Urine Dipstick Negative (08/31/23 4:17 AM) [facility] Leukocytes Urine Dipstick Negative (08/31/23 4:17 AM) [facility] Nitrite Urine Dipstick Negative (08/31/23 4:17 AM) [facility] pH Urine Dipstick 6 (08/31/23 4:17 AM) [facility] Protein Urine Dipstick Negative (08/31/23 4:17 AM) [facility] Specific Tavernier Urine Dipstick 1.025 (08/31/23 4:17 AM) [facility] Urine Color Urine Dipstick Pale Yellow (08/31/23 4:17 AM) [facility] Urobilinogen Urine Dipstick 0.2 mg/dl (08/31/23 4:17 AM) [facility] LABORATORYOrdered By: Ruth Jimenez on 08-31-2023 Amphetamines Screen Ql (U) Negative *NA* (08/31/23 4:11 AM) Invalid Interpretation Code Negative ADM SS Barbiturates Screen Ql (U) Negative *NA* (08/31/23 4:11 AM) Invalid Interpretation Code Negative AH ADM SS Benzodiazepines Ql (U) Negative *NA* (08/31/23 4:11 AM) Invalid Interpretation Code Negative AH ADM SS Benzoylecgonine Screen Ql (U) Negative *NA* (08/31/23 4:11 AM) Invalid Interpretation Code Negative AH ADM SS Cannabinoids Screen Ql (U) Negative *NA* (08/31/23 4:11 AM) Invalid Interpretation Code Negative ADM SS fentaNYL Screen Ql (U) Negative 2 *NA* (08/31/23 4:11 AM) Invalid Interpretation Code Negative AH ADM SS Comment on above: Interpretive Data: T esting has been performed FOR MEDICAL PURPOSES ONLY. Methadone Screen Ql (U) Negative *NA* (08/31/23 4:11 AM) Invalid Interpretation Code Negative AH ADM SS Opiates Screen Ql (U) Negative *NA* (08/31/23 4:11 AM) Invalid Interpretation Code Negative AH ADM SS oxyCODONE Ql (U) Negative 3 *NA* (08/31/23 4:11 AM) Invalid Interpretation Code Negative AH ADM SS Comment on above: Interpretive Data: T esting has been performed FOR MEDICAL PURPOSES ONLY. pH (U) 6.0 [pH] Normal 5.0 - 8.0 AH Chemistry S Phencyclidine Ql (U) Negative *NA* (08/31/23 4:11 AM) Invalid Interpretation Code Negative AH ADM SS Propoxyphene Screen Ql (U) Negative *NA* (08/31/23 4:11 AM) Invalid Interpretation Code Negative AH ADM SS Urine Drugs screened: See Below 5 (08/31/23 4:11 AM) Normal AH Chemistry S Comment on above: Interpretive Data: T his drug screen is a presumptive screening only. No confirmation will be performed unless requested. Drugs screened include: Threshold Amphetamines/Methamphetamines 1,000 ng/mL Barbiturates 200 ng/mL Benzodiazepine metabolites 200 ng/mL Cannabinoids (THC metabolites) 50 ng/mL Benzoylecognine (Cocaine metab) 300 ng/mL Opiates 300 ng/mL Phencyclidine (PCP) 25 ng/mL Methadone 300 ng/mL Propoxyphene 300 ng/mL Fentanyl 1.0 ng/mL Oxycodone 100 ng/mL Testing has been performed FOR MEDICAL PURPOSES ONLY. Acetaminophen [Mass/Vol] mcg/mL Low 10.0 - 20.0 mcg/mL AH ADM SS Ethanol [Mass/Vol] mg/dL Invalid Interpretation Code AH ADM SS Salicylates [Mass/Vol] mg/dL Low 10.0 - 25.0 mg/dL AH ADM SS Serum Drugs screened: See Below 4 (08/31/23 12:24 AM) Normal AH Chemistry S Comment on above: Interpretive Data: T his drug screen is a presumptive screening only. No confirmation will be performed unless requested. Drugs included in the ER serum drug screen are: Threshold Ethanol 10.0 mg/dL Salicylate 2.0 mg/dl Acetaminophen 2.0 mcg/mL Testing has been performed FOR MEDICAL PURPOSES ONLY. LABORATORYOrdered By: SYSTEM SYSTEM on 08-31-2023 Basophils (Bld) [#/Vol] 0.0 103/mcL Normal 0.0 - 0.3 10^3/mcL AH Workflow SS Basophils/100 WBC (Bld) 0.4 % Normal 0.0 - 2.5 % AH Workflow SS Calcium [Mass/Vol] 9.7 mg/dL Normal 8.7 - 10. 4 mg/dL AH ADM SS Chloride [Moles/Vol] 107 mmol/L Normal 98 - 110 mEq/L AH ADM SS CO2 [Moles/Vol] 18 mmol/L Low 22 - 32 mEq/L AH ADM SS Creatinine [Mass/Vol] 0.86 mg/dL Normal 0.50 - 1.20 mg/dL AH ADM SS Electrolyte Balance 18.0 mEq/L High 4.0 - 15 .0 mEq/L AH ADM SS Eosinophils (Bld) [#/Vol] 0.1 103/mcL Normal 0.0 - 0.7 10^3/mcL AH Workflow SS Eosinophils/100 WBC (Bld) 0.6 % Normal 0.0 - 6.0 % AH Workflow SS Erythrocyte distribution width (RBC) [Ratio] 13.0 % Normal 11.5 - 15.5 % AH Workflow SS GFR/1.73 sq M.predicted among blacks MDRD (S/P/Bld) [Vol rate/Area] ml/min/1.73sqm Invalid Interpretation Code AH ADM SS Comment on above: Interpretive Data: GFR Population mean for , Non- Americans Ages 20-29 = 116 mL/min/1.73 sq.m. Ages 30-39 = 107 mL/min/1.73 sq.m. Ages 40-49 = 99 mL/min/1.73 sq.m. Ages 50-59 = 93 mL/min/1.73 sq.m. Ages 60-69 = 85 mL/min/1.73 sq.m. Ages 70+ = 75 mL/min/1.73 sq.m. Chronic Kidney Disease: Less than 60 mL/min/1.73 square meters End Stage Renal Disease: Less than 15 mL/min/1.73 square meters GFR/1.73 sq M.predicted among non-blacks MDRD (S/P/Bld) [Vol rate/Area] ml/min/1.73sqm Invalid Interpretation Code AH ADM SS Comment on above: Interpretive Data: GFR Population mean for , Non- Americans Ages 20-29 = 116 mL/min/1.73 sq.m. Ages 30-39 = 107 mL/min/1.73 sq.m. Ages 40-49 = 99 mL/min/1.73 sq.m. Ages 50-59 = 93 mL/min/1.73 sq.m. Ages 60-69 = 85 mL/min/1.73 sq.m. Ages 70+ = 75 mL/min/1.73 sq.m. Chronic Kidney Disease: Less than 60 mL/min/1.73 square meters End Stage Renal Disease: Less than 15 mL/min/1.73 square meters Glucose [Mass/Vol] 123 mg/dL High 70 - 110 mg/dL ADM SS Hematocrit (Bld) [Volume fraction] 40.3 % Normal 34.0 - 46.0 % AH Workflow SS Hemoglobin (Bld) [Mass/Vol] 13.7 G/dL Normal 12.0 - 16.0 G/dL AH Workflow SS Lymphocytes (Bld) [#/Vol] 4.7 103/mcL High 0.9 - 4.3 10^3/mcL AH Workflow SS Lymphocytes/100 WBC (Bld) 39.5 % Normal 20.0 - 40.0 % AH Workflow SS MCH (RBC) [Entitic mass] 30.2 pg Normal 27.0 - 33.0 pg AH Workflow SS MCHC 34.0 G/dL Normal 32.0 - 36.0 G/dL AH Workflow SS MCV (RBC) [Entitic vol] 88.8 fL Normal 80.0 - 99.0 fL AH Workflow SS Monocyte distribution width Auto (Bld) [Entitic vol] 18.47 1 Normal 0.00 - 20.00 AH Workflow SS Comment on above: Result Comment: For ED adult patients suspected of sepsis, MDW<=20.0 does not rule out sepsis or risk of sepsis Monocytes (Bld) [#/Vol] 0.7 103/mcL Normal 0.1 - 1.4 10^3/mcL AH Workflow SS Monocytes/100 WBC (Bld) 5.8 % Normal 2.0 - 13.0 % AH Workflow SS Neutrophils (Bld) [#/Vol] 6.4 103/mcL Normal 2.3 - 8.1 10^3/mcL Workflow SS Neutrophils/100 WBC (Bld) 53.7 % Normal 50.0 - 75.0 % Workflow SS Platelet mean volume (Bld) [Entitic vol] 8.3 fL Normal 6.6 - 10.5 fL Workflow SS Platelets (Bld) [#/Vol] 263 103/mcL Normal 150 - 450 10^3/mcL AH Workflow SS Potassium [Moles/Vol] 3.2 mmol/L Low 3.5 - 5.0 mEq/L ADM SS RBC (Bld) [#/Vol] 4.54 106/mcL Normal 4.10 - 5.3 0 10^6/mcL Workflow SS Sodium [Moles/Vol] 143 mmol/L Normal 136 - 145 mEq/L ADM SS Urea nitrogen [Mass/Vol] 15.0 mg/dL Normal 8.0 - 22.0 mg/dL ADM SS Urea nitrogen/Creatinine [Mass ratio] 17.4 ratio Normal 10.0 - 22.0 ratio ADM SS WBC (Bld) [#/Vol] 11.9 103/mcL High 4.5 - 10.8 10^3/mcL Workflow SS Drug Scr, Abuse, Uron 2023 Amphetamine(s),Ur Positive Abnormal NEG [facility] Comment on above: Result Comment: Cuto ff: 1000 ng/mL High concentrations of ephedrine/pseudoephedrine or phenylpropanolamine may cause false positive results for amphetamine. Therefore, confirmatory testing for amphetamine should be considered if clinically indicated. Performed By: #### D AU, UAMIC #### [place] [address] Trout Farmer: Raj Silva MD Barbiturate(s),Ur Negative Normal [facility] Comment on above: Result Comment: Cuto ff: 200 ng/ml Performed By: #### D AU, UAMIC #### [address] [id number] Trout Farmer: Raj Silva MD Benzodiazepine(s) Positive Abnormal [facility] Comment on above: Result Comment: Cuto ff: 200 ng/ml Performed By: #### D AU, UAMIC #### [address] [place] [address] Trout Farmer: Raj Silva MD Buprenorphrine, Ur Negative Normal [facility] Comment on above: Result Comment: Cuto ff: 5 ng/ml Performed By: #### D AU, UAMIC #### [address] [place] [address] Trout Farmer: Raj Silva MD Cannabinoid(s),Ur Negative Normal [facility] Comment on above: Result Comment: Cuto ff: 50 ng/ml Performed By: #### D AU, UAMIC #### [address] [place] [address] Trout Farmer: Raj Silva MD Cocaine Metabolite Negative Normal [facility] Comment on above: Result Comment: Cuto ff: 300 ng/ml Performed By: #### D AU, UAMIC #### [address] [place] [address] Trout Farmer: Raj Silva MD Fentanyl, Urine Negative Normal [facility] Comment on above: Result Comment: Cuto ff: 1.0 ng/ml Performed By: #### D AU, UAMIC #### [address] [place] [address] Trout Farmer: Raj Silva MD Interpretive Info These drug screen results are for medical purposes only and should not be Normal [facility] Comment on above: Result Comment: cons idered definitive or confirmed. The drug methodology concentration value must be greater than or equal to the cutoff to be reported as positive. Confirmtory testing orders and/or interpretive sceening questions can be directed to toxicology at [phone]. The absence of expected drug(s) and/or metabolite(s) may be due to inappropriate timing of specimen collection relative to drug administration, poor drug absorption, diluted/adulterated urine, or limitations of screening methodology. Performed By: #### D AU, UAMIC #### [address] [place] [address] Trout Farmer: Raj Silva MD Methadone Ql (U) Negative Normal [facility]G [facility] Comment on above: Result Comment: Cuto ff: 300 ng/ml Performed By: #### D AU, UAMIC #### [address] [place] [address] Trout Farmer: Raj Silva MD Opiate(s), Ur Negative Normal NEG [facility] Comment on above: Result Comment: Cuto ff: 300 ng/ml Note: The Opiate screen is not intended to detect Oxycodone. Performed By: #### D AU, UAMIC #### [address] [place] [address] Trout Farmer: Raj Silva MD Oxycodone, Urine Negative Normal [facility] Comment on above: Result Comment: Cuto ff: 100 ng/ml Performed By: #### D AU, UAMIC #### [address] [place] [address] Trout Farmer: Raj Silva MD Phencyclidine, Ur Negative Normal NEG [facility] Comment on above: Result Comment: Cuto ff: 25 ng/ml Performed By: #### D AU, UAMIC #### [address] [place] [address] Trout Farmer: Raj Silva MD US GALLBLADDER RUQon 024 US GALLBLADDER RUQ EXAMINATION: RIGHT UPPER QUADRANT ULTRASOUND 07/22/2023 9:37 pm COMPARISON: None. HISTORY: ORDERING SYSTEM PROVIDED HISTORY: RUQ pain TECHNOLOGIST PROVIDED HISTORY: Reason for exam:->RUQ pain FINDINGS: Gallbladder ultrasound: The gallbladder is normal distended, it has normal wall thickness. There is no stones or sludge. There was no positive ultrasound Pena's sign at the time the present study. There is no fluid accumulation in the region of the gallbladder fossa. The CBD measures less than 3 mm. The study was not intend to fully evaluate the or the pancreas or the kidney. There was no size in the right upper quadrant. IMPRESSION: Normal gallbladder ultrasound Interpreted by: Johan rOtega MD Signed by: Johan Ortega MD 07/22/23 Final result Normal [facility] Comment on above: Order Comment: Reason for exam:->RUQ pain Basic Metabolic Panelon Anion gap [Moles/Vol] 11 mmol/L 7 - 16 mmol/L [employer] Calcium [Mass/Vol] 9.4 mg/dL 8.6 - 10. 2 mg/dL [employer] Chloride [Moles/Vol] 105 mmol/L 98 - 10 7 mmol/L [employer] CO2 [Moles/Vol] 25 mmol/L 22 - 29 mmol/L [facility] [employer] Creatinine [Mass/Vol] 0.8 mg/dL 0.40 - 1.20 mg/dL [employer] Est, Glom Filt Rate - PINF [facility] [employer] Comment on above: These results are not intended for use in patients <18 years of age. eGFR results are calculated without a race factor using the 2020 CKD-EPI equation. Careful clinical correlation is recommended, particularly when comparing to results calculated using previous equations. The CKD-EPI equation is less accurate in patients with extremes of muscle mass, extra-renal metabolism of creatine, excessive creatine ingestion, or following therapy that affects renal tubular secretion. Glucose [Mass/Vol] 91 mg/dL 55 - 110 mg/dL [facility] [employer] Potassium [Moles/Vol] 3.8 mmol/L 3.5 - 5.0 mmol/L [employer] Sodium [Moles/Vol] 141 mmol/L 132 - 146 mmol/L [employer] Urea nitrogen [Mass/Vol] 14 mg/dL 6 - 20 mg/dL [facility] [employer] Basic Metabolic Profon 07-21 Anion gap [Moles/Vol] 11 mmol/L Normal 7-16 [facility] Comment on above: Performed By: #### C BCWD, BMP, LIP, LIVP, MG #### [address] [place] [address] [employer] Farmer: Raj Silva MD Calcium [Mass/Vol] 9.4 mg/dL Normal 8.6-10.2 [facility] Comment on above: Performed By: #### C BCWD, BMP, LIP, LIVP, MG #### [address] [place] [address] [employer]: Raj Silva MD Chloride [Moles/Vol] 105 mmol/L Normal 98-107 [facility] Comment on above: Performed By: #### C BCWD, BMP, LIP, LIVP, MG #### [address] [place] [address] [employer] Farmer: Raj Silva MD CO2 [Moles/Vol] 25 mmol/L Normal 22-29 [facility] Comment on above: Performed By: #### C BCWD, BMP, LIP, LIVP, MG #### [address] [place] [address] [employer] Farmer: Raj Silva MD Creatinine [Mass/Vol] 0.8 mg/dL Normal 0.40-1.20 [facility] Comment on above: Performed By: #### C BCWD, BMP, LIP, LIVP, MG #### [address] [place] [address] [employer] Farmer: Raj Silva MD GFR/1.73 sq M.predicted among non-blacks MDRD (S/P/Bld) [Vol rate/Area] mL/min/{1.73_m2} Normal >60 [facility] Comment on above: Result Comment: These results are not intended for use in patients <18 years of age. eGFR results are calculated without a race factor using the 2020 CKD-EPI equation. Careful clinical correlation is recommended, particularly when comparing to results calculated using previous equations. The CKD-EPI equation is less accurate in patients with extremes of muscle mass, extra-renal metabolism of creatine, excessive creatine ingestion, or following therapy that affects renal tubular secretion. Performed By: #### C BCWD, BMP, LIP, LIVP, MG #### [address] [place] [address] [employer]out Farmer: Raj Silva MD Glucose [Mass/Vol] 91 mg/dL Normal 55-110 [facility] Comment on above: Performed By: #### C BCWD, BMP, LIP, LIVP, MG #### [address] [place] [address] [employer]out Farmer: Raj Silva MD Potassium [Moles/Vol] 3.8 mmol/L Normal 3.5-5.0 [facility] Comment on above: Performed By: #### C BCWD, BMP, LIP, LIVP, MG #### [address] [place] [address] [employer]out Farmer: Raj Silva MD Sodium [Moles/Vol] 141 mmol/L Normal 132-146 [facility] Comment on above: Performed By: #### C BCWD, BMP, LIP, LIVP, MG #### [address] [place] [address] [employer] Farmer: Raj Silva MD Urea nitrogen [Mass/Vol] 14 mg/dL Normal 6-20 [facility] Comment on above: Performed By: #### C BCWD, BMP, LIP, LIVP, MG #### [address] [place] [address] [employer]out Farmer: Raj Silva MD CBC with Auto Differentialon 07-22-2023 Basophils (Bld) [#/Vol] 0.05 10*3/uL [facility] Basophils/100 WBC (Bld) 1 % 0.0 - 2.0 % [facility] Eosinophils (Bld) [#/Vol] 0.05 10*3/uL [facility] Eosinophils/100 WBC (Bld) 1 % 0 - 6 % [facility] Erythrocyte distribution width (RBC) [Ratio] 12.7 % 11.5 - 15.0 % [facility] Hematocrit (Bld) [Volume fraction] 39.6 % 34.0 - 48.0 % [facility] Hemoglobin (Bld) [Mass/Vol] 13.1 g/dL 11.5 - 15.5 g/dL [facility] Immature granulocytes (Bld) [#/Vol] 0.05 10*3/uL [facility] Immature granulocytes/100 WBC (Bld) 1 % 0.0 - 5.0 % [facility] Interpretation and review of laboratory results Abnormal [facility] Lymphocytes/100 WBC (Bld) 21 % 20.0 - 42.0 % [facility] Lymphocytes/100 WBC (Bld) 2.17 % [facility] MCH (RBC) [Entitic mass] 29.4 pg 26.0 - 35.0 pg [facility] MCHC (RBC) [Mass/Vol] 33.1 g/dL 32.0 - 34.5 g/dL [facility] MCV (RBC) [Entitic vol] 88.8 fL 80.0 - 99.9 fL [facility] Monocytes/100 WBC (Bld) 7 % 2.0 - 12.0 % [facility] Monocytes/100 WBC (Bld) 0.67 % [facility] Neutrophils/100 WBC (Bld) 71 % 43.0 - 80.0 % [facility] Platelet mean volume (Bld) [Entitic vol] 10.3 fL 7.0 - 12.0 fL [facility] Platelets (Bld) [#/Vol] 257 10*3/uL [facility] RBC (Bld) [#/Vol] 4.46 10*6/uL 3.50 - 5.5 0 m/uL [facility] Segmented neutrophils/100 WBC (Bld) 7.39 % High [facility] WBC other (Bld) [#/Vol] 10.4 [facility] CBC with Diffon 07-22-2023 Abs. Basophil 0.05 k/uL Normal 0.00-0.20 [facility] Comment on above: Performed By: #### C BCWD, BMP, LIP, LIVP, MG #### [place] [address] Trout Farmer: Raj Silva MD Abs.Imm.Granulocyte 0.05 k/uL Normal 0.00-0.58 [facility] Comment on above: Performed By: #### C BCWD, BMP, LIP, LIVP, MG #### [place] [address] Trout Farmer: Raj Silva MD Abs.Neutrophil (Seg) 7.39 k/uL High 1.80-7.30 [facility] Comment on above: Performed By: #### C BCWD, BMP, LIP, LIVP, MG #### [place] [address] Trout Farmer: Raj Silva MD Basophils/100 WBC (Bld) 1 % Normal 0.0-2.0 [facility] Comment on above: Performed By: #### C BCWD, BMP, LIP, LIVP, MG #### [place] [address] Trout Farmer: Raj Silva MD Eosinophils (Bld) [#/Vol] 0.05 10*3/uL Normal 0.05-0.50 [facility] Comment on above: Performed By: #### C BCWD, BMP, LIP, LIVP, MG #### [address] [place] [address] Trout Farmer: Raj Silva MD Eosinophils/100 WBC (Bld) 1 % Normal 0-6 [facility] Comment on above: Performed By: #### C BCWD, BMP, LIP, LIVP, MG #### [address] [place] [address] Trout Farmer: Raj Silva MD Erythrocyte distribution width (RBC) [Ratio] 12.7 % Normal 11.5-15.0 [facility] Comment on above: Performed By: #### C BCWD, BMP, LIP, LIVP, MG #### [address] [place] [address] Trout Farmer: Raj Silva MD Hematocrit (Bld) [Volume fraction] 39.6 % Normal 34.0-48.0 [facility] Comment on above: Performed By: #### C BCWD, BMP, LIP, LIVP, MG #### [address] [place] [address] Trout Farmer: Raj Silva MD Hemoglobin (Bld) [Mass/Vol] 13.1 g/dL Normal 11.5-15.5 [facility] Comment on above: Performed By: #### C BCWD, BMP, LIP, LIVP, MG #### [address] [place] [address] Trout Farmer: Raj Silva MD Immature granulocytes/100 WBC (Bld) 1 % Normal 0.0-5.0 [facility] Comment on above: Performed By: #### C BCWD, BMP, LIP, LIVP, MG #### [address] [place] [address] Trout Farmer: Raj Silva MD Lymphocytes (Bld) [#/Vol] 2.17 10*3/uL Normal 1.50-4.00 [facility] Comment on above: Performed By: #### C BCWD, BMP, LIP, LIVP, MG #### [address] [place] [address] Trout Farmer: Raj Silva MD Lymphocytes/100 WBC (Bld) 21 % Normal 20.0-42.0 [facility] Comment on above: Performed By: #### C BCWD, BMP, LIP, LIVP, MG #### [address] [place] [address] Trout Farmer: Raj Silva MD MCH (RBC) [Entitic mass] 29.4 pg Normal 26.0-35.0 [facility] Comment on above: Performed By: #### C BCWD, BMP, LIP, LIVP, MG #### [address] [place] [address] Trout Farmer: Raj Silva MD MCHC (RBC) [Mass/Vol] 33.1 g/dL Normal 32.0-34.5 [facility] Comment on above: Performed By: #### C BCWD, BMP, LIP, LIVP, MG #### [address] [place] [address] Trout Farmer: Raj Silva MD MCV (RBC) [Entitic vol] 88.8 fL Normal 80.0-99.9 [facility] Comment on above: Performed By: #### C BCWD, BMP, LIP, LIVP, MG #### [address] [place] [address] Trout Farmer: Raj Silva MD Monocytes (Bld) [#/Vol] 0.67 10*3/uL Normal 0.10-0.95 [facility] Comment on above: Performed By: #### C BCWD, BMP, LIP, LIVP, MG #### [address] [place] [address] Trout Farmer: Raj Silva MD Monocytes/100 WBC (Bld) 7 % Normal 2.0-12.0 [facility] Comment on above: Performed By: #### C BCWD, BMP, LIP, LIVP, MG #### [address] [place] [address] Trout Farmer: Raj Silva MD Neutrophil (Seg) 71 % Normal 43.0-80.0 [facility] Comment on above: Performed By: #### C BCWD, BMP, LIP, LIVP, MG #### [address] [place] [address] Trout Farmer: Raj Silva MD Platelet mean volume (Bld) [Entitic vol] 10.3 fL Normal 7.0-12.0 [facility] Comment on above: Performed By: #### C BCWD, BMP, LIP, LIVP, MG #### [address] [place] [address] Trout Farmer: Raj Silva MD Platelets (Bld) [#/Vol] 257 10*3/uL Normal 130-450 [facility] Comment on above: Performed By: #### C BCWD, BMP, LIP, LIVP, MG #### [address] [place] [address] Trout Farmer: Raj Silva MD RBC (Bld) [#/Vol] 4.46 10*6/uL Normal 3.50-5.50 [facility] Comment on above: Performed By: #### C BCWD, BMP, LIP, LIVP, MG #### [address] [place] [address] Trout Farmer: Raj Silva MD WBC (Bld) [#/Vol] 10.4 10*3/uL Normal 4.5-11.5 [facility] Comment on above: Performed By: #### C BCWD, BMP, LIP, LIVP, MG #### [address] [place] [address] Trout Farmer: Raj Silva MD HCG Screen, Urineon 07-22-19 24 Beta HCG ( test) Ql (U) Negative Normal NEG [facility] Comment on above: Result Comment: Test results should always be evaluated with all available clinical data. If a urine sample is too dilute, it may not contain a risk control field representative urinary hCG concentration. If a negative result is obtained and is still suspected, a first morning sample should be obtained and tested. Performed By: #### H CGUB #### [address] [place] [address] Trout Farmer: Raj Silva MD Hepatic Function Panelon Albumin [Mass/Vol] 4.4 g/dL 3.5 - 5.2 g/dL [facility]ations[facility] ALP [Catalytic activity/Vol] 99 U/L 35 - 104 U/L [facility]ations[facility] ALT [Catalytic activity/Vol] 11 U/L 0 - 32 U/L [facility] AST [Catalytic activity/Vol] 16 U/L 0 - 31 U/L [facility] Bilirubin [Mass/Vol] 0.3 mg/dL 0.0 - 1 .2 mg/dL [facility] Bilirubin.direct [Mass/Vol] mg/dL 0.0 - 0.3 mg/dL [facility] Bilirubin.indirect [Mass/Vol] Can not be calculated 0.0 - 1.0 mg/dL [facility]ITAL[facility] Protein [Mass/Vol] 7.3 g/dL 6.4 - 8.3 g/dL [facility] Lipaseon 07-22-2023 Lipase [Catalytic activity/Vol] 23 U/L Normal 13-60 [facility] Comment on above: Performed By: #### C BCWD, BMP, LIP, LIVP, MG #### [facility] [address] [place] [address] Trout Farmer: Raj Silva MD Lipase [Catalytic activity/Vol] 23 U/L 13 - 60 U/L [facility] Liver Profileon 07-22-2023 Albumin [Mass/Vol] 4.4 g/dL Normal 3.5-5.2 [facility] Comment on above: Performed By: #### C BCWD, BMP, LIP, LIVP, MG #### [facility] [address] [place] [address] Trout Farmer: Raj Silva MD Alkaline Phos 99 U/L Normal 35-104 [facility] Comment on above: Performed By: #### C BCWD, BMP, LIP, LIVP, MG #### [address] [place] [address] Trout Farmer: Raj Silva MD ALT [Catalytic activity/Vol] 11 U/L Normal 0-32 [facility] Comment on above: Performed By: #### C BCWD, BMP, LIP, LIVP, MG #### [address] [place] [address] Trout Farmer: Raj Silva MD AST [Catalytic activity/Vol] 16 U/L Normal 0-31 [facility] Comment on above: Performed By: #### C BCWD, BMP, LIP, LIVP, MG #### [facility] [address] [place] [address] Trout Farmer: Raj Silva MD Bilirubin [Mass/Vol] 0.3 mg/dL Normal 0.0-1.2 [facility] Comment on above: Performed By: #### C BCWD, BMP, LIP, LIVP, MG #### [address] [place] [address] Trout Farmer: Raj Silva MD Bilirubin, Indirect Can not be calculated Normal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 Indicates the absence of BV. Total score 2: Indeterminate for BV. Additional clinical data should be evaluated to establish a diagnosis. Total score 3-6: Indicates the presence of BV. This test was developed and its performance characteristics determined by [facility]. It has not been cleared or approved by the Food and Drug Administration. Performed By: #### G CCTTR, VV3, VV1, VV2 #### [facility] [address] [place] [address] #### URINE #### Main Lab - [facility] [address], [place] [address] NEISSERIA GONORRHOEAE, MARTY Negative Normal Negative [facility] Comment on above: Result Comment: Perf ormed at: =G - [facility] [address]Adrien [place] [id number] Trout Farmer: Melissa Williamson MD, Phone: [phone] Performed By: #### G CCTTR, VV3, VV1, VV2 #### [facility] [address] [place] [address] #### URINE #### Main Lab - [facility] [address], [place] [address] TRICH VAG BY MARTY Negative Normal Negative [facility] Comment on above: Performed By: #### G CCTTR, VV3, VV1, VV2 #### [facility] [address] [place] [address] #### URINE #### Main Lab - [facility] [address], [place] [address] HCV ANTIBODYon 11-10-2021 HCV ANTIBODY <0.1 Normal 0.0-0.9 [facility] Comment on above: Result Comment: Nega tive: < 0.8 Indeterminate: 0.8 - 0.9 Positive: > 0.9 HCV antibody alone does not differentiate between previous resolved infection and active infection. The CDC and current clinical guidelines recommend that a positive HCV antibody result be followed up with an HCV RNA test to support the diagnosis of acute HCV infection. [facility] offers Hepatitis C Virus (HCV) RNA, Diagnosis, MARTY (639890) and Hepatitis C Virus (HCV) Antibody with reflex to Quantitative Real-time PCR ([id number]). Performed By: #### G CCTTR, VV3, VV1, VV2 #### [facility] [address] [place] [address] #### URINE #### Main Lab - [facility] [address], [place] [address] HEP B CORE AB, IgMon 022 HEP B CORE AB, IgM Negative Normal Negative [facility] Comment on above: Result Comment: Perf ormed at: [facility] [address] [place], [place] [id number] Trout Farmer: Hari Dunn PhD, Phone: [phone] Performed By: #### G CCTTR, VV3, VV1, VV2 #### [facility] [address] [place] [address] #### URINE #### Main Lab - [facility] [address], [place] [address] HEPATITIS B SURFACE ANTIGEN SCon 11-10-2021 HBsAG SCREEN Negative Normal Negative [facility] Comment on above: Performed By: #### G CCTTR, VV3, VV1, VV2 #### [facility] [address] [place] [address] #### URINE #### Main Lab - [facility] [address], [place] [address] HIV SCREEN 4TH GEN W RFXon 0 11-10-2021 HIV SCREEN 4TH GEN Non-Reactive Normal Non Reactive [facility] Comment on above: Result Comment: HIV Negative HIV-1/HIV-2 antibodies and HIV-1 p24 antigen were NOT detected. There is no laboratory evidence of HIV infection. Performed at: - [place] [address] Trout Farmer: Hari Dunn PhD, Phone: [phone] Performed By: #### G CCTTR, VV3, VV1, VV2 #### [facility] [address] [place] [address] #### URINE #### Main Lab - [facility] [address], [place] [address] CBC WITH AUTO DIFFon 022 BASO, ABSOLUTE (AUTO) 0.0 10 3/uL Normal 0.0-0.2 [facility] Comment on above: Performed By: #### S HCG, CBC, CMP, LIVER, HGB A1C, UDS, LIPID, TSH 1, FT4 1 #### Main Lab - [facility] [address], [place] [address] #### HBSAG, HBC M, HCV, HIV SCR 4TH #### [facility] [address] [place] [address] Basophils/100 WBC (Bld) 0.4 % Normal 0.0-1.0 [facility] Comment on above: Performed By: #### S HCG, CBC, CMP, LIVER, HGB A1C, UDS, LIPID, TSH 1, FT4 1 #### Main Lab - [facility] [address], [place] [address] #### HBSAG, HBC M, HCV, HIV SCR 4TH #### [facility] [address] [place] [address] EOSINOPHILS, ABSOLUTE (AUTO) 0.0 10 3/uL Normal 0.0-0.7 [facility] Comment on above: Performed By: #### S HCG, CBC, CMP, LIVER, HGB A1C, UDS, LIPID, TSH 1, FT4 1 #### Main Lab - [facility] [place] [id number] #### HBSAG, HBC M, HCV, HIV SCR 4TH #### [facility] [address] [place] [address] Eosinophils/100 WBC (Bld) 0.5 % Normal 0.0-5.0 [facility] Comment on above: Performed By: #### S HCG, CBC, CMP, LIVER, HGB A1C, UDS, LIPID, TSH 1, FT4 1 #### Main Lab - [facility], [place] [address] #### HBSAG, HBC M, HCV, HIV SCR 4TH #### [facility] [address] [place], [place] [address] [place] [address] Erythrocyte distribution width (RBC) [Ratio] 12.8 % Normal 11.5-14.0 [facility] Comment on above: Performed By: #### S HCG, CBC, CMP, LIVER, HGB A1C, UDS, LIPID, TSH 1, FT4 1 #### Main Lab - [facility] [address], [place] [address] #### HBSAG, HBC M, HCV, HIV SCR 4TH #### [facility] [address] [place], [place] [address] [place] [address] Hematocrit (Bld) [Volume fraction] 39.5 % Normal 35.0-45.0 [facility] Comment on above: Performed By: #### S HCG, CBC, CMP, LIVER, HGB A1C, UDS, LIPID, TSH 1, FT4 1 #### Main Lab - [facility] [address], [place] [address] #### HBSAG, HBC M, HCV, HIV SCR 4TH #### [facility] [address], [place] [address] Hemoglobin (Bld) [Mass/Vol] 13.8 g/dL Normal 12.5-16.1 [facility] Comment on above: Performed By: #### S HCG, CBC, CMP, LIVER, HGB A1C, UDS, LIPID, TSH 1, FT4 1 #### Main Lab - [facility] [address] [place] [address] #### HBSAG, HBC M, HCV, HIV SCR 4TH #### [facility] [address] [place], [place] [address] LYMPHOCYTES, ABSOLUTE (AUTO) 1.3 10 3/uL Normal 1.0-3.5 [facility] Comment on above: Performed By: #### S HCG, CBC, CMP, LIVER, HGB A1C, UDS, LIPID, TSH 1, FT4 1 #### Main Lab - [facility] [address], [place] [address] #### HBSAG, HBC M, HCV, HIV SCR 4TH #### [facility] [address], [place] [address] Lymphocytes/100 WBC (Bld) 19.8 % Low 24.0-44.0 [facility] Comment on above: Performed By: #### S HCG, CBC, CMP, LIVER, HGB A1C, UDS, LIPID, TSH 1, FT4 1 #### Main Lab - [facility] [address], [place] [address] #### HBSAG, HBC M, HCV, HIV SCR 4TH #### [facility] [address], [place] [address] MCH (RBC) [Entitic mass] 30.0 pg Normal 26.0-32.0 [facility] Comment on above: Performed By: #### S HCG, CBC, CMP, LIVER, HGB A1C, UDS, LIPID, TSH 1, FT4 1 #### Main Lab - [facility] [address] [place] [id number] #### HBSAG, HBC M, HCV, HIV SCR 4TH #### [facility] [address] [place] [address] MCHC (RBC) [Mass/Vol] 34.9 g/dL Normal 32.0-36.0 [facility] Comment on above: Performed By: #### S HCG, CBC, CMP, LIVER, HGB A1C, UDS, LIPID, TSH 1, FT4 1 #### Main Lab - [facility] [address] [place] [address] #### HBSAG, HBC M, HCV, HIV SCR 4TH #### [facility] [address] [place] [address] MCV (RBC) [Entitic vol] 85.8 fL Normal 78.0-95.0 [facility] Comment on above: Performed By: #### S HCG, CBC, CMP, LIVER, HGB A1C, UDS, LIPID, TSH 1, FT4 1 #### Main Lab - [facility] [place] [address] #### HBSAG, HBC M, HCV, HIV SCR 4TH #### [facility] [address] [place] [address] MONOCYTES, ABSOLUTE (AUTO) 0.3 10 3/uL Normal 0.2-0.8 [facility] Comment on above: Performed By: #### S HCG, CBC, CMP, LIVER, HGB A1C, UDS, LIPID, TSH 1, FT4 1 #### Main Lab [facility] [address] [place] [address] #### HBSAG, HBC M, HCV, HIV SCR 4TH #### [facility] [address] [place] [address] Monocytes/100 WBC (Bld) 4.9 % Normal 1.7-9.3 [facility] Comment on above: Performed By: #### S HCG, CBC, CMP, LIVER, HGB A1C, UDS, LIPID, TSH 1, FT4 1 #### Main Lab - [facility] [address], [place] [address] #### HBSAG, HBC M, HCV, HIV SCR 4TH #### [facility] [address] [place], [place] [address] NEUTROPHILS, ABSOLUTE (AUTO) 5.0 10 3/uL Normal 1.5-6.7 [facility] Comment on above: Performed By: #### S HCG, CBC, CMP, LIVER, HGB A1C, UDS, LIPID, TSH 1, FT4 1 #### Main Lab - [facility] [address] [id number] #### HBSAG, HBC M, HCV, HIV SCR 4TH #### [facility] [address] [place], [place] [address] Neutrophils/100 WBC (Bld) 74.4 % High 36.0-66.0 [facility] Comment on above: Performed By: #### S HCG, CBC, CMP, LIVER, HGB A1C, UDS, LIPID, TSH 1, FT4 1 #### Main Lab - [facility] [address] [id number] #### HBSAG, HBC M, HCV, HIV SCR 4TH #### [facility] [address], [place] [address] PLATELET COUNT 238 10 3/uL Normal 150-450 [facility] Comment on above: Performed By: #### S HCG, CBC, CMP, LIVER, HGB A1C, UDS, LIPID, TSH 1, FT4 1 #### Main Lab - [facility] [address], [place] [address] #### HBSAG, HBC M, HCV, HIV SCR 4TH #### [address], [place] [address] Platelet mean volume (Bld) [Entitic vol] 8.4 fL Normal 6.0-9.5 [facility] Comment on above: Performed By: #### S HCG, CBC, CMP, LIVER, HGB A1C, UDS, LIPID, TSH 1, FT4 1 #### Main Lab - [facility] [address], [place] [address] #### HBSAG, HBC M, HCV, HIV SCR 4TH #### [facility] [address], [place] [address] RED BLOOD COUNT 4.60 x10 6/uL Normal 4.10-5.30 [facility] Comment on above: Performed By: #### S HCG, CBC, CMP, LIVER, HGB A1C, UDS, LIPID, TSH 1, FT4 1 #### Main Lab - [facility] [address], [place] [address] #### HBSAG, HBC M, HCV, HIV SCR 4TH #### [facility] [address], [place] [address] WHITE BLOOD COUNT 6.8 10 3/uL Normal 4.0-10.5 [facility] Comment on above: Performed By: #### S HCG, CBC, CMP, LIVER, HGB A1C, UDS, LIPID, TSH 1, FT4 1 #### Main Lab - [facility] [address], [place] [address] #### HBSAG, HBC M, HCV, HIV SCR 4TH #### [facility] [address], [place] [address] COMPREHENSIVE METABOLIC PANE Robel 11-09-2021 Albumin [Mass/Vol] 4.5 g/dL Normal 3.9-5.0 [facility] Comment on above: Performed By: #### S HCG, CBC, CMP, LIVER, HGB A1C, UDS, LIPID, TSH 1, FT4 1 #### Main Lab - [facility] [address], [place] [address] #### HBSAG, HBC M, HCV, HIV SCR 4TH #### [facility] [address], [place] [address] Albumin/Globulin [Mass ratio] 1.6 {ratio} Normal 1.1-1.8 [facility] Comment on above: Performed By: #### S HCG, CBC, CMP, LIVER, HGB A1C, UDS, LIPID, TSH 1, FT4 1 #### Main Lab - [facility] [address], [place] [address] #### HBSAG, HBC M, HCV, HIV SCR 4TH #### [facility] [address] [address] ALP [Catalytic activity/Vol] 97 U/L Normal 43-122 [facility] Comment on above: Performed By: #### S HCG, CBC, CMP, LIVER, HGB A1C, UDS, LIPID, TSH 1, FT4 1 #### Main Lab - [facility] [address], [place] [address] #### HBSAG, HBC M, HCV, HIV SCR 4TH #### [facility] [address] [address] ALT [Catalytic activity/Vol] 20 U/L Normal 7-56 [facility] Comment on above: Performed By: #### S HCG, CBC, CMP, LIVER, HGB A1C, UDS, LIPID, TSH 1, FT4 1 #### Main Lab - [facility] [address] [place] [address] #### HBSAG, HBC M, HCV, HIV SCR 4TH #### [address] [address] Anion gap [Moles/Vol] 10 mmol/L Normal 9-18 [facility] Comment on above: Performed By: #### S HCG, CBC, CMP, LIVER, HGB A1C, UDS, LIPID, TSH 1, FT4 1 #### Main Lab - [facility] [address] [place], [place] [id number] #### HBSAG, HBC M, HCV, HIV SCR 4TH #### [facility] [address] AST [Catalytic activity/Vol] 21 U/L Normal 8-39 [facility] Comment on above: Performed By: #### S HCG, CBC, CMP, LIVER, HGB A1C, UDS, LIPID, TSH 1, FT4 1 #### Main Lab - [facility] [address] [id number] #### HBSAG, HBC M, HCV, HIV SCR 4TH #### [facility] [address] [place], [place] [address] Bilirubin [Mass/Vol] 1.1 mg/dL Normal 0.2-1.3 [facility] Comment on above: Performed By: #### S HCG, CBC, CMP, LIVER, HGB A1C, UDS, LIPID, TSH 1, FT4 1 #### Main Lab - [facility] [address] [id number] #### HBSAG, HBC M, HCV, HIV SCR 4TH #### [facility] [address] [place], [place] [address] BUN/CREATININE RATIO 15.5 Ratio Normal 5.0-42.0 [facility] Comment on above: Performed By: #### S HCG, CBC, CMP, LIVER, HGB A1C, UDS, LIPID, TSH 1, FT4 1 #### Main Lab - [facility] [address] [place] [address] #### HBSAG, HBC M, HCV, HIV SCR 4TH #### [facility] [address] [place], [place] [address] Calcium [Mass/Vol] 9.6 mg/dL Normal 8.4-10.2 [facility] Comment on above: Performed By: #### S HCG, CBC, CMP, LIVER, HGB A1C, UDS, LIPID, TSH 1, FT4 1 #### Main Lab - [facility] [address] [place] [address] #### HBSAG, HBC M, HCV, HIV SCR 4TH #### [facility] [address] [place], [place] [address] Chloride [Moles/Vol] 108 mmol/L High 98-107 [facility] Comment on above: Performed By: #### S HCG, CBC, CMP, LIVER, HGB A1C, UDS, LIPID, TSH 1, FT4 1 #### Main Lab - [facility] [address] [address] #### HBSAG, HBC M, HCV, HIV SCR 4TH #### [address] [place], [place] [address] CO2 [Moles/Vol] 26 mmol/L Normal 22-31 [facility] Comment on above: Performed By: #### S HCG, CBC, CMP, LIVER, HGB A1C, UDS, LIPID, TSH 1, FT4 1 #### Main Lab - [facility] [address], [place] [address] #### HBSAG, HBC M, HCV, HIV SCR 4TH #### [address] [place], [place] [address] Creatinine [Mass/Vol] 0.84 mg/dL Normal 0.80-1.30 [facility] Comment on above: Performed By: #### S HCG, CBC, CMP, LIVER, HGB A1C, UDS, LIPID, TSH 1, FT4 1 #### Main Lab - [facility] [address] [address] #### HBSAG, HBC M, HCV, HIV SCR 4TH #### [facility] [address] [address] ESTIMATED GLOMERULAR FILT RATE > 60.000 Normal [facility] Comment on above: Performed By: #### S HCG, CBC, CMP, LIVER, HGB A1C, UDS, LIPID, TSH 1, FT4 1 #### Main Lab - [facility] [address], [place] [address] #### HBSAG, HBC M, HCV, HIV SCR 4TH #### [address] [place], [place] [address] Globulin (S) [Mass/Vol] 2.9 g/dL Normal [facility] Comment on above: Performed By: #### S HCG, CBC, CMP, LIVER, HGB A1C, UDS, LIPID, TSH 1, FT4 1 #### Main Lab - [facility] [address], [place] [address] #### HBSAG, HBC M, HCV, HIV SCR 4TH #### [facility] [address] [place] [address] Glucose [Mass/Vol] 101 mg/dL High 70-99 [facility] Comment on above: Result Comment: The glucose range is based on recommendations from the [place] for fasting blood glucose range. Performed By: #### S HCG, CBC, CMP, LIVER, HGB A1C, UDS, LIPID, TSH 1, FT4 1 #### Main Lab - [facility] [address] [id number] #### HBSAG, HBC M, HCV, HIV SCR 4TH #### [facility] [address] [address] Potassium [Moles/Vol] 4.1 mmol/L Normal 3.6-5.0 [facility] Comment on above: Performed By: #### S HCG, CBC, CMP, LIVER, HGB A1C, UDS, LIPID, TSH 1, FT4 1 #### Main Lab - [facility] [address] [address] #### HBSAG, HBC M, HCV, HIV SCR 4TH #### [facility] [address] [address] Protein [Mass/Vol] 7.4 g/dL Normal 6.3-8.2 [facility] Comment on above: Performed By: #### S HCG, CBC, CMP, LIVER, HGB A1C, UDS, LIPID, TSH 1, FT4 1 #### Main Lab - [facility] [address] [address] #### HBSAG, HBC M, HCV, HIV SCR 4TH #### [facility] [address] Sodium [Moles/Vol] 140 mmol/L Normal 137-145 [facility] Comment on above: Performed By: #### S HCG, CBC, CMP, LIVER, HGB A1C, UDS, LIPID, TSH 1, FT4 1 #### Main Lab - [facility] [address], [place] [address] #### HBSAG, HBC M, HCV, HIV SCR 4TH #### [facility] [address] [address] Urea nitrogen [Mass/Vol] 13 mg/dL Normal 7-21 [facility] Comment on above: Performed By: #### S HCG, CBC, CMP, LIVER, HGB A1C, UDS, LIPID, TSH 1, FT4 1 #### Main Lab - [facility] [address], [place] [address] #### HBSAG, HBC M, HCV, HIV SCR 4TH #### [address] [address] AGE,PATIENT 15 Years Normal [facility] Comment on above: Performed By: #### S HCG, CBC, CMP, LIVER, HGB A1C, UDS, LIPID, TSH 1, FT4 1 #### Main Lab - [facility] [address] [id number] #### HBSAG, HBC M, HCV, HIV SCR 4TH #### [address] [address] DRUG SCREEN,URINEon 11-10-19 22 AMPHETAMINE SCREEN,URINE Negative Normal NEGATIVE [facility] Comment on above: Order Comment: PATIE NT MATHEMATICAL ENGINEER REP Y Result Comment: Nega tive cut-off concentration <1000 ng/mL Performed By: #### S HCG, CBC, CMP, LIVER, HGB A1C, UDS, LIPID, TSH 1, FT4 1 #### Main Lab - [facility] [address] [id number] #### HBSAG, HBC M, HCV, HIV SCR 4TH #### [address] [place], [place] [address] BARBITURATE SCREEN, URINE Negative Normal NEGATIVE [facility] Comment on above: Order Comment: PATIE NT MATHEMATICAL ENGINEER REP Y Result Comment: Nega tive cut-off concentration <200 ng/mL Performed By: #### S HCG, CBC, CMP, LIVER, HGB A1C, UDS, LIPID, TSH 1, FT4 1 #### Main Lab - [facility] [address] [address] #### HBSAG, HBC M, HCV, HIV SCR 4TH #### [facility] [place], [place] [address] BENZODIAZEPINES SCREEN,URINE Negative Normal NEGATIVE [facility] Comment on above: Order Comment: PATIE NT MATHEMATICAL ENGINEER REP Y Result Comment: Nega tive cut-off concentration <200 ng/mL Performed By: #### S HCG, CBC, CMP, LIVER, HGB A1C, UDS, LIPID, TSH 1, FT4 1 #### Main Lab - [facility] [address] [address] #### HBSAG, HBC M, HCV, HIV SCR 4TH #### [address] [place], [place] [address] BUPRENORPHINE SCREEN,URINE Negative Normal NEGATIVE [facility] Comment on above: Order Comment: PATIE NT MATHEMATICAL ENGINEER REP Y Result Comment: Nega tive cut-off concentration <10 ng/mL Performed By: #### S HCG, CBC, CMP, LIVER, HGB A1C, UDS, LIPID, TSH 1, FT4 1 #### Main Lab - [facility] [address] #### HBSAG, HBC M, HCV, HIV SCR 4TH #### [address] [place], [place] [address] CANNABINOID SCREEN,URINE Negative Normal NEGATIVE [facility] Comment on above: Order Comment: PATIE NT MATHEMATICAL ENGINEER REP Y Result Comment: Nega tive cut-off concentration <50 ng/mL Performed By: #### S HCG, CBC, CMP, LIVER, HGB A1C, UDS, LIPID, TSH 1, FT4 1 #### Main Lab - [facility] [place] [address] #### HBSAG, HBC M, HCV, HIV SCR 4TH #### [address] [address] COCAINE SCREEN,URINE Negative Normal NEGATIVE [facility] Comment on above: Order Comment: PATIE NT MATHEMATICAL ENGINEER REP Y Result Comment: Nega tive cut-off concentration <300 ng/mL Performed By: #### S HCG, CBC, CMP, LIVER, HGB A1C, UDS, LIPID, TSH 1, FT4 1 #### Main Lab - [facility] [address] [place], [place] [address] #### HBSAG, HBC M, HCV, HIV SCR 4TH #### [facility] [address] [place], [place] [address] METHADONE SCREEN,URINE Negative Normal NEGATIVE [facility] Comment on above: Order Comment: PATIE NT MATHEMATICAL ENGINEER REP Y Result Comment: Nega tive cut-off concentration <300 ng/mL Performed By: #### S HCG, CBC, CMP, LIVER, HGB A1C, UDS, LIPID, TSH 1, FT4 1 #### Main Lab - [facility] [address], [place] [address] #### HBSAG, HBC M, HCV, HIV SCR 4TH #### [facility] [address] [address] OPIATE SCREEN,URINE Negative Normal NEGATIVE [facility] Comment on above: Order Comment: PATIE NT MATHEMATICAL ENGINEER REP Y Result Comment: Nega tive cut-off concentration <300 ng/mL Performed By: #### S HCG, CBC, CMP, LIVER, HGB A1C, UDS, LIPID, TSH 1, FT4 1 #### Main Lab - [facility] [address], [place] [address] #### HBSAG, HBC M, HCV, HIV SCR 4TH #### [address] [address] OXYCODONE SCREEN,URINE Negative Normal NEGATIVE [facility] Comment on above: Order Comment: PATIE NT MATHEMATICAL ENGINEER REP Y Result Comment: Nega tive cut-off concentration <300 ng/mL Performed By: #### S HCG, CBC, CMP, LIVER, HGB A1C, UDS, LIPID, TSH 1, FT4 1 #### Main Lab - [facility] [address], [place] [address] #### HBSAG, HBC M, HCV, HIV SCR 4TH #### [address] [address] PHENCYCLIDINE SCREEN,URINE Negative Normal NEGATIVE [facility] Comment on above: Order Comment: PATIE NT MATHEMATICAL ENGINEER REP Y Result Comment: Nega tive cut-off concentration <25 ng/mL Performed By: #### S HCG, CBC, CMP, LIVER, HGB A1C, UDS, LIPID, TSH 1, FT4 1 #### Main Lab - [facility] [address], [place] [address] #### HBSAG, HBC M, HCV, HIV SCR 4TH #### [address], [place] [address] NITRITE,URINE Negative Normal NEGATIVE [facility] Comment on above: Order Comment: CONSTANCEE NT MATHEMATICAL ENGINEER REP Y Performed By: #### S HCG, CBC, CMP, LIVER, HGB A1C, UDS, LIPID, TSH 1, FT4 1 #### Main Lab - [facility] [address], [place] [address] #### HBSAG, HBC M, HCV, HIV SCR 4TH #### [address], [place] [address] pH (U) 6.5 [pH] Normal 5.0-8.0 [facility] Comment on above: Order Comment: VALENCIA NT MATHEMATICAL ENGINEER REP Y Performed By: #### S HCG, CBC, CMP, LIVER, HGB A1C, UDS, LIPID, TSH 1, FT4 1 #### Main [facility] - [facility] [address] [id number] #### HBSAG, HBC M, HCV, HIV SCR 4TH #### [address] [place], [place] [address] SPECIFIC GRAVITY,URINE 1.025 SP.GR. Normal <1.029 [facility] Comment on above: Order Comment: CONSTANCEE NT MATHEMATICAL ENGINEER REP Y Performed By: #### S HCG, CBC, CMP, LIVER, HGB A1C, UDS, LIPID, TSH 1, FT4 1 #### Main [facility] - [facility] [address], [place] [address] #### HBSAG, HBC M, HCV, HIV SCR 4TH #### [facility] [place], [place] [address] FREE T4 (FREE THYROXINE)on 0 - Free T4 [Mass/Vol] 0.82 ng/dL Normal 0.8-2.2 [facility] Comment on above: Performed By: #### G CCTTR, VV3, VV1, VV2 #### [facility] [address] [address] #### URINE #### Main [facility] - [facility] [address], [place] [address] HCG, SERUMon 11-09-2021 HCG, SERUM Negative Normal [facility] Comment on above: Performed By: #### S HCG, CBC, CMP, LIVER, HGB A1C, UDS, LIPID, TSH 1, FT4 1 #### Main [facility] - [facility] [address], [place] [address] #### HBSAG, HBC M, HCV, HIV SCR 4TH #### [facility] [address] [place] [address] HEPATIC PANELon 11-09-2021 Bilirubin.indirect [Mass/Vol] 0.1 mg/dL Normal 0.0-0.6 [facility] Comment on above: Performed By: #### S HCG, CBC, CMP, LIVER, HGB A1C, UDS, LIPID, TSH 1, FT4 1 #### Main Lab - [facility] [address], [place] [address] #### HBSAG, HBC M, HCV, HIV SCR 4TH #### [facility] [address] [place] [address] HGB A1C WITH MBG VALUEon Glucose [Mass/Vol] 119 mg/dL Normal [facility] Comment on above: Performed By: #### G CCTTR, VV3, VV1, VV2 #### [facility] [address] [place] [address] #### URINE #### Main Lab - [facility] [address], [place] [address] HbA1c (Bld) [Mass fraction] 5.5 % Normal 4.0-6.0 [facility] Comment on above: Performed By: #### G CCTTR, VV3, VV1, VV2 #### [facility] [address] [address] #### URINE #### Main Lab - [facility] [address], [place] [address] LIPID PANELon 11-09-2021 CARDIAC RISK 3.423 Normal [facility] Comment on above: Result Comment: Base d on the results of the Cholesterol, Triglyceride, HDL Cholesterol, and LDL Cholesterol procedures, this patient has a less than average risk for developing Coronary Heart Disease. Performed By: #### G CCTTR, VV3, VV1, VV2 #### [address] [address] #### URINE #### Main Lab - [facility] [address], [place] [address] Cholesterol [Mass/Vol] 202 mg/dL High 0-200 [facility] Comment on above: Performed By: #### G CCTTR, VV3, VV1, VV2 #### [facility] [address] [address] #### URINE #### Main [facility] - [facility] [address], [place] [address] Cholesterol in HDL [Mass/Vol] 59 mg/dL Normal 35-67 [facility] Comment on above: Performed By: #### G CCTTR, VV3, VV1, VV2 #### [facility] [address] [address] #### URINE #### Main [facility] [address], [place] [address] LDL CHOLESTEROL,CALCULATED 125 mg/dL Normal 0-130 [facility] Comment on above: Result Comment: Expe cted Values: Desirable: < 130 mg/dL Borderline-High Risk: 130-159 mg/dL High Risk: > or =160 mg/dL Calculation of LDL may be inaccurate for samples with triglyceride concentrations greater than 400 mg/dL or with samples from patients who have Type III hyperlipoproteinemia(electrophoretic broad beta lipoprotein present). Performed By: #### G CCTTR, VV3, VV1, VV2 #### [facility] [address] [address] #### URINE #### Main Lab - [facility] [address], [place] [address] LDL/HDL RATIO 2.12 Normal [facility] Comment on above: Performed By: #### G CCTTR, VV3, VV1, VV2 #### [facility] [address] [address] #### URINE #### Main [facility] - [facility] [address], [place] [address] Triglyceride [Mass/Vol] 90 mg/dL Normal 35-135 [facility] Comment on above: Result Comment: Len paz from the [employer] [place]: Triglycerides Level Category -------- < 150 mg/dL Normal 150 - 199 mg/dL Borderline High 200 - 499 mg/dL High > or = 500 mg/dL Very High Performed By: #### G CCTTR, VV3, VV1, VV2 #### [address] [place] [address] #### URINE #### Main [facility] [address], [place] [address] THYROID STIMULATING HORMONEo n 11-09-2021 TSH Qn 0.95 m[IU]/L Normal 0.45-5.33 [facility] Comment on above: Performed By: #### G CCTTR, VV3, VV1, VV2 #### [facility] [address] [address] #### URINE #### Main [facility] - [facility] [address], [place] [address] CHLAMYDIA/GC/TRIC AMPLIFICAT IOon 10-29-2021 CHLAMYDIA TRACHOMATIS, MARTY Negative Normal Negative [facility] Comment on above: Order Comment: URINE Performed By: #### G CCTTR, VV3, VV1, VV2 #### [address] [address] #### URINE #### Main [facility] [address], [place] [address] NEISSERIA GONORRHOEAE, MARTY Negative Normal Negative [facility] Comment on above: Order Comment: URINE Performed By: #### G CCTTR, VV3, VV1, VV2 #### [facility] [address] [place] [address] #### URINE #### Main [facility] [address], [place] [address] TRICH VAG by MARTY Negative Normal Negative [facility] Comment on above: Order Comment: URINE Result Comment: Perf ormed at: =G - [facility] [address] [id number] Trout Farmer: Mleissa Williamson MD, Phone: [phone] Performed By: #### G CCTTR, VV3, VV1,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 not available. - To manually calculate eGFR use Bedside Goncalves equation. 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 [facility] Comment on above: Result Comment: Posi tive for This test was developed and its performance characteristics determined by [facility]'s [facility] [place]. This test has been authorized by FDA under an Emergency Use Authorization (EUA). This test has been validated in accordance with the FDA's Guidance Document Policy for Diagnostics Testing in Laboratories Certified to Perform High Complexity Testing under CLIA prior to Emergency use Authorization for Coronavirus Disease 2019 during the Public Health Emergency issued on May 18, 2019. COVID19 (SARS This test was developed and its performance characteristics determined by [facility] [place]. This test has been authorized by FDA under an Emergency Use Authorization (EUA). This test has been validated in accordance with the FDA's Guidance Document Policy for Diagnostics Testing in Laboratories Certified to Perform High Complexity Testing under CLIA prior to Emergency use Authorization for Coronavirus Disease 2019 during the Public Health Emergency issued on May 18, 2019. CoV2) by This test was developed and its performance characteristics determined by [facility] [place]. This test has been authorized by FDA under an Emergency Use Authorization (EUA). This test has been validated in accordance with the FDA's Guidance Document Policy for Diagnostics Testing in Laboratories Certified to Perform High Complexity Testing under CLIA prior to Emergency use Authorization for Coronavirus Disease 2019 during the Public Health Emergency issued on May 18, 2019. PCR.(*) This test was developed and its performance characteristics determined by [facility] [place]. This test has been authorized by FDA under an Emergency Use Authorization (EUA). This test has been validated in accordance with the FDA's Guidance Document Policy for Diagnostics Testing in Laboratories Certified to Perform High Complexity Testing under CLIA prior to Emergency use Authorization for Coronavirus Disease 2019 during the Public Health Emergency issued on May 18, 2019. 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 Normal [facility] Comment on above: Result Comment: Naso pharyngeal Corrected on 03/17 AT 2217: Previously reported as NASOPHARYNGEAL Swab Corrected on 03/17 AT 2217: Previously reported as NASOPHARYNGEAL T3, FREEon 01-24-2020 Free T3 [Mass/Vol] 3.0 pg/mL Normal 3.0-4.7 [facility] Comment on above: Performed By: #### 3 [id number], 866, 899 #### [facility]-[address], [address] [place] [address] Press Brake Operator: Otto Rudolph MD T4, FREEon 01-24-2020 Free T4 [Mass/Vol] 1.3 ng/dL Normal 0.8-1.4 [facility] Comment on above: Performed By: #### 3 4429, 866, 899 #### [facility]-[address], [address] [place] [address] Press Brake Operator: Otto Rudolph MD TSHon 01-24-2020 TSH Qn 0.70 m[IU]/L Normal [facility] Comment on above: Result Comment: Refe rence Range 1-19 Years 0.50-4.30 Ranges First trimester 0.26-2.66 Second trimester 0.55-2.73 Third trimester 0.43-2.91 Performed By: #### 3 4429, 866, 899 #### [facility]-[address], [address] [place] [address] Press Brake Operator: Otto Rudolph MD Laboratory - Chemistry and C hemistry - challengeon 01-23-2020 Free T3 [Mass/Vol] 3.0 pg/mL Normal 3.0 - 4.7 pg/mL [facility] Free T4 [Mass/Vol] 1.3 ng/dL Normal 0.8 - 1.4 ng/dL [facility]. Glucose Glucometer (BldC) [Moles/Vol] 108 Normal 60 - 120 [facility], [facility] TSH Qn 0.70 m[IU]/L Normal [facility], [facility]. Laboratory - Hematology and Cell countson 01-23-2020 Hemoglobin (Bld) [Mass/Vol] 12.2 g/dL Normal 11.5 - 14.2 g/dL [facility], [facility]. Hemoglobin A1con 08-24-2019 HbA1c (Bld) [Mass fraction] 5.3 % Normal 4.3-5.6 [facility] Comment on above: Performed By: #### H BA1C #### [facility] Routine Lab [address] [place], [place] [address] HbA1c (Bld) [Mass fraction] 105 mg/dL Normal [facility] Comment on above: Performed By: #### H BA1C #### [facility] Routine Lab [address] [place], [place] [address] BMPon 12-08-2018 Anion gap [Moles/Vol] 9 mmol/L Normal 5-16 [facility] Comment on above: Order Comment: Campu s: M Performed By: #### L 500.05494, L500.95611, L500.71280 #### [facility] [place] [address] Calcium [Mass/Vol] 8.7 mg/dL Normal 8.5-10.1 [facility] Comment on above: Order Comment: Campu s: M Performed By: #### L 500.86004, L500.85650, L500.88519 #### [facility] [place] [address] Chloride [Moles/Vol] 109 mmol/L High 98-107 [facility] Comment on above: Order Comment: Campu s: M Performed By: #### L 500.79332, L500.64594, L500.45812 #### [facility] [address] [place] [address] CO2 [Moles/Vol] 23 mmol/L Normal 21-32 [facility] Comment on above: Order Comment: Campu s: M Performed By: #### L 500.61927, L500.02105, L500.27121 #### [facility] [address] [place] [address] Creatinine [Mass/Vol] 0.832 mg/dL Normal 0.510-0.950 [facility] Comment on above: Order Comment: Campu s: M Result Comment: Constance ents receiving either N-Acetylcysteine (NAC) or Metamizole prior to venipuncture, may have falsely depressed results. Performed By: #### L 500.21643, L500.91262, L500.41258 #### [facility] [address] [place] [address] Glucose [Mass/Vol] 92 mg/dL Normal 70-100 [facility] Comment on above: Order Comment: Campu s: M Result Comment: 70-1 00- Normal Fasting; 100-125 Impaired Fasting; greater than 126 on more than one result- Diabetes. ADA guidelines. Results may be falsely elevated after the administration of Sulfapyridine. Results may be falsely depressed after the administration of Sulfasalazine. Performed By: #### L 500.54168, L500.71113, L500.05293 #### [facility] [address] [place] [address] Potassium [Moles/Vol] 4.2 mmol/L Normal 3.5-5.1 [facility] Comment on above: Order Comment: Campu s: M Performed By: #### L 500.46301, L500.32689, L500.58094 #### [facility] [address] [place] [address] Sodium [Moles/Vol] 141 mmol/L Normal 136-145 [facility] Comment on above: Order Comment: Campu s: M Performed By: #### L 500.42551, L500.44851, L500.20252 #### [facility] [address] [place] [address] Urea nitrogen [Mass/Vol] 13 mg/dL Normal 7-26 [facility] Comment on above: Order Comment: Campu s: M Performed By: #### L 500.53214, L500.24156, L500.25317 #### [facility] [address] [place] [address] Urea nitrogen/Creatinine [Mass ratio] 16 mg/mg Normal 15-24 [facility] Comment on above: Order Comment: Campu s: M Performed By: #### L 500.07817, L500.24937, L500.26910 #### [facility] [address] [place] [address] CBC W/DIFFon 12-08-2018 BASO ABS 0.00 K/CU MM Normal 0-0.2 [facility] Comment on above: Order Comment: Campu s: M Performed By: #### L 200.64250 #### [facility] [address] [place] [address] Basophils/100 WBC (Bld) 0.3 % Normal 0-2 [facility] Comment on above: Order Comment: Campu s: M Performed By: #### L 200.26592 #### [facility] [address] [place] [address] EOS ABS 0.00 K/CU MM Normal 0-0.7 [facility] Comment on above: Order Comment: Campu s: M Performed By: #### L 200.35040 #### [facility] [address] [place] [address] Eosinophils/100 WBC (Bld) 0.3 % Normal 0-5 [facility] Comment on above: Order Comment: Campu s: M Performed By: #### L 200.28876 #### [facility] [address] [place] [address] Erythrocyte distribution width (RBC) [Ratio] 12.8 % Normal 11-14.5 [facility] Comment on above: Order Comment: Campu s: M Performed By: #### L 200.56253 #### [facility] [address] [place] [address] Hematocrit (Bld) [Volume fraction] 35.6 % Normal 33.0-45.0 [facility] Comment on above: Order Comment: Campu s: M Performed By: #### L 200.96032 #### [facility] [address] [place] [address] Hemoglobin (Bld) [Mass/Vol] 11.8 g/dL Normal 11.0-14.5 [facility] Comment on above: Order Comment: Campu s: M Performed By: #### L 200.11040 #### [facility] [address] [place] [address] IMMATR GRAN ABS 0.00 K/CU MM Normal [facility] Comment on above: Order Comment: Campu s: M Performed By: #### L 200.58184 #### [facility] [address] [place] [address] IMMATURE GRAN % 0.3 % Normal [facility] Comment on above: Order Comment: Campu s: M Performed By: #### L 200.85629 #### [facility] [address] [place] [address] Lymphocytes (Bld) [#/Vol] 1.60 K/CU MM Normal 1.0-7.2 [facility] Comment on above: Order Comment: Campu s: M Performed By: #### L 200.80539 #### [facility] [address] [place] [address] Lymphocytes/100 WBC (Bld) 13.5 % Low 23-53 [facility] Comment on above: Order Comment: Campu s: M Performed By: #### L 200.53876 #### [facility] [address] [place] [address] MCHC (RBC) [Mass/Vol] 33.1 g/dL Normal 32.0-36.0 [facility] Comment on above: Order Comment: Campu s: M Performed By: #### L 200.19923 #### [facility] [address] [place] [address] MCV (RBC) [Entitic vol] 89.0 fL Normal 78.0-98.0 [facility] Comment on above: Order Comment: Campu s: M Performed By: #### L 200.76193 #### [facility] [address] [place] [address] MONO ABS 0.40 K/CU MM Normal 0.1-1.4 [facility] Comment on above: Order Comment: Campu s: M Performed By: #### L 200.22825 #### [facility] [address] [place] [address] Monocytes/100 WBC (Bld) 3.6 % Normal 2-10 [facility] Comment on above: Order Comment: Campu s: M Performed By: #### L 200.64344 #### [facility] [address] [place] [address] NEUTROPHIL ABS 9.90 K/CU MM High 1.6-9.7 [facility] Comment on above: Order Comment: Campu s: M Performed By: #### L 200.87995 #### [facility] [address] [place] [address] Neutrophils/100 WBC (Bld) 82.0 % High 36-72 [facility] Comment on above: Order Comment: Campu s: M Performed By: #### L 200.75249 #### [facility] [address] [place] [address] Nucleated RBC/100 WBC (Bld) [Ratio] 0.0 % Normal [facility] Comment on above: Order Comment: Campu s: M Performed By: #### L 200.92629 #### [facility] [place] [address] Platelet mean volume (Bld) [Entitic vol] 10.1 fL Normal [facility] Comment on above: Order Comment: Campu s: M Performed By: #### L 200.86390 #### [facility] [address] [place] [address] Platelets (Bld) [#/Vol] 270 K/CU MM Normal 150-450 [facility] Comment on above: Order Comment: Campu s: M Performed By: #### L 200.34861 #### [facility] [address] [place] [address] RBC (Bld) [#/Vol] 4.00 M/CU MM Normal 4.00-5.30 [facility] Comment on above: Order Comment: Campu s: M Performed By: #### L 200.68941 #### [facility] [address] [place] [address] WBC (Bld) [#/Vol] 12.1 K/CUMM Normal 4.5-13.5 [facility] Comment on above: Order Comment: Campu s: M Performed By: #### L 200.15688 #### [facility] [address] [place] [address] CT HEAD/BRAIN W/O CONon 11-19 CT HEAD/BRAIN W/O CON CT HEAD/BRAIN W/O CON Ordering Physician: Kavon Cevallos DO 12/08/2018 12:[address] BRAIN WITHOUT CONTRAST: Clinical statement: Syncope Comparison: None Technique: Noncontrast axial images were obtained through the brain. FINDINGS: The ventricles and cisternal spaces are normal in size and configuration for a patient of this age. There is no hemorrhage or extra-axial fluid collection. No acute infarct, mass, or shift of the midline structures. The paranasal sinuses and mastoid air cells are clear. The orbits and osseous structures are intact. IMPRESSION: No acute intracranial abnormality. ---- Electronic Signature on File ---- Signed By: Everett Edmonds MD [email or web address] Dictated: 12/08/2018 2:36 PM Signed: 12/08/2018 2:36 PM Reported By: EVERETT EDMONDS M.D. Signed By: EVERETT EDMONDS M.D. [facility] 12-08-2018 EMERGENCY PHYSICIAN REPORT This is a preliminary report only, as the practitioner review and authentication has not occurred. [facility] ER PHYSICIAN ASSESSMENT RECORDS : Discharge Report Event Time: 12/08/2018 15:42 : FlexChartData Event Time: 12/08/2018 16:15 Status: Signed [facility] Addie Mena [[id number]] Attending Physician 2005 Chart (V2b) Chart created at 12/08/2018 15:35 by Kavon Cevallos Chart closed at 12/08/2018 15:41 Entry in Emergency Department at 12/08/2018 12:05 Patient Name: Addie Mena Record Number: [id number] Date: 12/08/2018 15:35 Entered Department at: 12/08/2018 12:05 Patient Seen at: 12/08/2018 12:11 Historian: EMS, Parent and Patient PCP: *Unknown,PCP Chief Complaint:C/O SYNCOPAL EPISODE WHILE RUNNING CROSS COUNTRY TODAY Triage Note reviewed and Initial Vital Signs reviewed. Temperature: 98.9 F (37.2 C). Pulse: 98. Respiratory Rate: 16. Blood-pressure: 97/64. Oxygen Saturation: 98%. History of Present Illness: 13-Year-old female brought in by EMS after having a syncopal event. Patient was racing cross-country when she passed out, EMS was called and patient brought into the emergency department. Patient is not verbally answering any questions at this time, when asking her if she can understand what I am saying she does not [facility] PATIENT NAME: ADDIE MENA [address] [facility] [address] MEDICAL REC #: [id number] [place] [id number] EMERGENCY DEPARTMENT REPORT EMERGENCY DEPARTMENT PHYSICIAN her head yes, when asking her if she is having any pain she nods her head no. This was the only history initially obtained. Mother later arrived and did provide additional information including that the patient rarely drinks any water and eats very little food and then proceeds to participate in sports activities like cross-country. She states she ate and drank very little before her event today. She did have one prior episode of syncope without any complications. She has not had any physical complaints recently according to mother including no chest pains, breathing troubles, headaches or any other complaints. Mother states patient does have a lot of underlying anxiety and depression issues, she does follow with a mental health provider for this as well as her primary care physician. Review of Systems. All other systems reviewed and negative.. Past History, Medications, Allergies, Social History and Family History reviewed in nurses note. Medications: Reviewed RN Note. None Allergies: Reviewed RN Note No Known Allergies Social History: Reviewed RN Note. Family History: Reviewed RN Note Physical Examination: General: Patient is awake, she looks from side to side, she rolls her eyes upward and flutters her eyelids. She does nod her head yes and no when asked questions but is not having verbal interaction at this time. No acute distress. HEENT: Head: Atraumatic. Eyes: PERRL; EOMI. Ear: Normal external aud. canal, Normal Tympanic Membranes. Nose: Normal inspection. Oropharynx / Throat: Dry mucous membranes. Neck: Supple; No stiffness or rigidity Respiratory: Normal Breath Sounds Cardio-Vascular: No murmur and [facility] PATIENT NAME: DADIE MENA [facility] [address] MEDICAL REC #: [id number] [place] [address] EMERGENCY DEPARTMENT REPORT EMERGENCY DEPARTMENT PHYSICIAN RRR Abdomen: Normal Bowel Sounds, No Organomegaly and Soft; No apparent tenderness with palpation Back: No evidence of trauma, no apparent tenderness with palpation Extremity: No edema and Normal Equal pulses; Patient moving all extremities. No evidence of any trauma to the extremities. Neurological: Patient is nodding yes or no to questions but again not verbally interacting. Patient does not cooperate with cranial nerve exam at this time. Skin: No rash, No Petechiae, Warm and Dry CBC W/DIFF, information as of 12/08/2018, 12:24 pm 89.0 / 11.8 / 12.1 andgt;------andlt; 270 / 35.6 / N:82.0* BASO ABS: 0.00 K/Cu Mm; BASOPHIL %: 0.3 %; EOS ABS: 0.00 K/Cu Mm; EOSINOPHIL %: 0.3 %; IMMATR GRAN ABS: 0.00 K/Cu Mm; IMMATURE GRAN %: 0.3 %; LYMPH %: 13.5 %; LYMPH ABS: 1.60 K/Cu Mm; MCHC: 33.1 Gm/Dl; MONO ABS: 0.40 K/Cu Mm; MONOCYTE %: 3.6 %; MPV: 10.1; NEUTROPHIL ABS: 9.90 K/Cu Mm; NRBC: 0.0 %; RBC: 4.00 M/Cu Mm; RDW: 12.8 BMP, information as of 12/08/2018, 12:24 pm 141 --------+--------+--- -----andlt; 92 Anion Gap = 9 4.2 BUN/CREA: 16; CALCIUM TOTAL: 8.7 Mg/Dl HCG, information as of 12/08/2018, 12:24 pm HCG SER RESULT: Neg LIVER, information as of 12/08/2018, 12:24 pm A/G RATIO: 1.4; ALBUMIN: 4.1 Gm/Dl; ALK PHOS: 123 U/L; BILI DIRECT: 0.15 Mg/Dl; BILI TOTAL: 0.7 Mg/Dl; GLOBULIN: 2.9 Gm/Dl; SGOT (AST): 17 U/L; SGPT (ALT): 16 Iu/L; TP: 7.0 Gm/Dl UR DRUG ABUSE, information as of 12/08/2018, 12:26 pm Negative for: Urine Amphetamine, Barbiturates, Benzodiazepines, Cocaine, Phencyclidine, Opiates, Cannabinoids DRAB COMMENT: Pnd [facility] PATIENT NAME: ADDIE MENA [facility] [address] MEDICAL REC #: [id number] [place] [address] EMERGENCY DEPARTMENT REPORT EMERGENCY DEPARTMENT PHYSICIAN GLUCOSE METER, information as of 12/08/2018, 12:32 pm GLUCOSE METER: 91 Mg/Dl TROPONIN I POC, information as of 12/08/2018, 12:33 pm POC Trop-I: 0.00 Cardiogram: Interpreted by me. Interpretation: Normal sinus rhythm, rate of 97, normal axis, normal R wave progression, QTC 429. No evidence of WPW or Brugada. Imaging Study Obtained: CT (HEAD/BRAIN) WO CONT Imaging Study Obtained: CT HEAD/BRAIN W/O CON, Status:Signed Report Available CT HEAD/BRAIN W/O CON Ordering Physician: Kavon Cevallos DO 12/08/2018 12:[address] BRAIN WITHOUT CONTRAST: Clinical statement: Syncope Comparison: None Technique: Noncontrast axial images were obtained through the brain. FINDINGS: The ventricles and cisternal spaces are normal in size and configuration for a patient of this age. There is no hemorrhage or extra-axial fluid collection. No acute infarct, mass, or shift of the midline structures. The paranasal sinuses and mastoid air cells are clear. The orbits and [facility] PATIENT NAME: ADDIE MENA [address] [facility] [address] MEDICAL REC #: [id number] [place] [address] EMERGENCY DEPARTMENT REPORT EMERGENCY DEPARTMENT PHYSICIAN osseous structures are intact. IMPRESSION: No acute intracranial abnormality. ---- Electronic Signature on File ---- Signed By: Everett Edmonds MD [email or web address] Dictated: 12/08/2018 2:36 PM Signed: 12/08/2018 2:36 PM Reported By: EVERETT EDMONDS M.D. Medical Decision Making After evaluation, patient was minimally interactive. Patient reassessed and eventually returned completely back to her baseline, cranial nerves intact, normal strength and sensation, normal speech. She does have some underlying depression and anxiety issues, there did seem to be a psychological component to her behavior after initial evaluation. EKG unremarkable, CT of the brain unremarkable, laboratory studies unremarkable as noted above. Patient was given IV fluids while here, blood pressure completely normalized, mother is comfortable with patient being discharged home and following up. She will follow-up both with her mental health provider as well as her primary care physician. I will recommend that she not participate in any further athletic activities until seen and cleared by her primary care physician. Additional Information: Additional History from EMS and Family. Discussed Results, Diagnosis and Follow-Up with Patient and Family. Clinical Impression: [facility] PATIENT NAME: ADDIE MENA Dr. [address] MEDICAL REC #: [id number] [place] [address] EMERGENCY DEPARTMENT REPORT EMERGENCY DEPARTMENT PHYSICIAN 1. Acute syncope 2. Acute dehydration Disposition: Discharged . EMS run report reviewed (not applicable for EMT squads).. MSE completed. I was the primary ED attending.. Patient transported to ED by EMS with medical direction by [facility]CEP physician (not applicable for EMT squads) .. ===DISCHARGE REPORT=== : Discharge Report Event Time: 12/08/2018 15:42 Status: Draft Reasons to Return to the ER: You must return to the ER for any new, worsening or changing symptoms, or if you feel more ill or sick in any way. This is the most important thing to remember. Follow-up: The care you received in the ER was given on an emergency basis only, and it is often not possible to completely treat or diagnose a problem in a single ER visit. You must see your follow-up doctor for a recheck within a week unless you receive instructions with a different timeframe for follow-up. Please follow all your discharge instructions. Medications: Unless the ER doctor tells you differently, you should take all your regular medications and any new medications prescribed today. Because it is not possible for the ER doctor to review all of your medication side effects or interactions, you must review [facility] PATIENT NAME: ADDIE MENA Dr. [address] MEDICAL REC #: [id number] [place] [address] EMERGENCY DEPARTMENT REPORT EMERGENCY DEPARTMENT PHYSICIAN possible side effects and interactions with your pharmacist when you get your prescriptions filled. EKG and Radiology Results: A ash collector or radiologist will review any EKG or radiology results provided by the ER doctor. We will contact you if the results in the final EKG or radiology reports require a change in treatment. Culture Results: Cultures may have been ordered during your ER visit. We will contact you if the culture results require a change in treatment. Referrals: Most referrals to specialists come from the on-call list You should make your regular doctor aware of any referrals before you schedule the appointment so that they are aware and can make suggestions DIAGNOSIS: Acute syncope, Acute dehydration INSTRUCTIONS: Do not participate in any further athletic activities until seen and cleared by your doctor. Return to the emergency department immediately if you have any further episodes of passing out, or if you have any other new or concerning symptoms. It is very important that you increase your water intake and increase your food intake as well. REFERRAL Your regular doctor(s) Please call the above number to schedule a follow-up appointment. 2-3 days [facility] PATIENT NAME: ADDIE MENA [address] [facility] [address] MEDICAL REC #: [id number] [place] [id number] EMERGENCY DEPARTMENT REPORT EMERGENCY DEPARTMENT PHYSICIAN MEDICATIONS We have given you these prescriptions that you must fill and start taking: None COMMENTS: Patient Satisfaction: Within the first few days after your visit, you will receive an email and/or phone call regarding your visit. We value your feedback, and would appreciate it if you would take the time to complete this short survey. If you receive a call, it will be between 6p and 8p. My signature below indicates that I have received and understand the oral instructions regarding my medical problem. I also acknowledge receipt of this written instruction sheet including a list of major tests and procedures ordered during my visit. I will arrange for follow-up care as indicated by these instructions and referrals. This signed original will be kept in my medical record. Your signature below indicates consent for Case Management to contact [facility] in an effort to meet your ongoing healthcare needs. This will allow forcontinuity of care once you leave the Emergency Department. This exchange of informationwill include, but not be limited to, disclosure of your patient information and possible release of records. 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 MEDICAL REC #: [id number] [place] [address] EMERGENCY DEPARTMENT REPORT EMERGENCY DEPARTMENT PHYSICIAN Address: [address] [place] [address] Address: [place] [address] REGISTRATION ED Number: [id number] Marital Status: S Financial Class: [employer] TRIAGE Priority: 3 - Urgent Complaint: Syncope Complaint: Altered Mental Status Stated Complaint: C/O SYNCOPAL EPISODE WHILE RUNNING CROSS [place] TODAY Arrival Date: 12/08/2018 12:05 Triage Date: 12/08/2018 12:07 Mode of Arrival: Ambulance WC: N Language: Israeli Transport: [facility] BED D42 In: 12/08/2018 12:10:46 12/08/2018 12:10:46 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 MEDICAL REC #: [id number] [place] [address] EMERGENCY DEPARTMENT REPORT EMERGENCY DEPARTMENT PHYSICIAN MARIBEL GALEANO Provider Contact: 12/08/2018 12:21:06 ANIMAL SHELTER MANAGER End: TRIAGE HISTORY ALLERGIES Allergic To: No Known Allergies 12/08/2018 14:23 ANIMAL SHELTER MANAGER CURRENT MEDS Name: None 12/08/2018 14:23 ANIMAL SHELTER MANAGER NURSING ASSESSMENT ASSESSMENT NOTES 12/08/2018 12:30 Pt brought in by EMS for eval post near syncope event when running cross country. Pt not initially answering questions and eyes were fluttering. Reflexes noted. Upon mothers arrival, pt is now alert and oriented x 4. Denies completely passing out. Breathing easy and regular. Lungs clear. Denies chest pain. alarm security or surveillance monitor applied. Skin is warm, dry and intact. Per mother, pts has not been eating or drinking much and sees a therapist for depression and anxiety. 12/08/2018 16:36 ANIMAL SHELTER MANAGER 12/08/2018 14:[address] 12/08/2018 14:30 ANIMAL SHELTER MANAGER 12/08/2018 15:50 Pts mother given a school slip and discharge instructions. Denies questions. Pt ambulated to the lobby with a steady gait. 12/08/2018 16:37 ANIMAL SHELTER MANAGER TREATMENT 12/08/2018 12:00 Patient Interaction - Introduce self to Patient. 12/08/2018 14:25 ANIMAL SHELTER MANAGER [facility] PATIENT NAME: ADDIE MENA [address] [facility] [address] Corona MEDICAL REC #: [id number] [place] [address] EMERGENCY DEPARTMENT REPORT EMERGENCY DEPARTMENT PHYSICIAN 12/08/2018 12:10 Patient Interaction - Tamping Machine Operator Road Forms/ Pulse ox/ BP cuff applied 12/08/2018 14:25 ANIMAL SHELTER MANAGER 12/08/2018 12:10 Patient Interaction - Name Band on Pt 12/08/2018 14:25 ANIMAL SHELTER MANAGER 12/08/2018 12:10 Patient Interaction - Call light placed within reach. 12/08/2018 14:25 ANIMAL SHELTER MANAGER 12/08/2018 12:35 POC testing results and critical values - POC Glucometer (FSBS) 91 12/08/2018 12:35 DJA 12/08/2018 13:00 Hourly Rounding - Rounding 12/08/2018 14:25 ANIMAL SHELTER MANAGER Elimination/Toileting N Pain 0 Position Comfortable Y Safe Environment Y Assessment Note Denies needs. Fall Risk Change N 12/08/2018 14:00 Hourly Rounding - Rounding 12/08/2018 14:25 ANIMAL SHELTER MANAGER Elimination/Toileting Y Pain 0 Position Comfortable Y Safe Environment Y Assessment Note Pt and family updated on wait. Pt ambulated to the restroom with a steady gait. Fall Risk Change N 12/08/2018 14:00 Primary DOC Guide - E. Family Violence Assessment 12/08/2018 16:30 ANIMAL SHELTER MANAGER Within the past year, has anyone ever pushed, shoved, slapped, choked, hit, punched or kicked you: No Within the past year, has anyone ever pressured or forced you to have sexual activities when you did not want to: No Do you feel safe and well cared for: Yes Is there a partner from a previous or current relationship that is making you feel unsafe now: No 12/08/2018 14:00 Primary DOC Guide - B. Fall Risk Assessment (Age andlt;65) 12/08/2018 16:30 ANIMAL SHELTER MANAGER History of Falling in last 3 months? No (0) [facility] PATIENT NAME: ADDIE MENA [address] [facility] MEDICAL REC #: [id number] [place] [address] EMERGENCY DEPARTMENT REPORT EMERGENCY DEPARTMENT PHYSICIAN Confusion or Disorientation? No (0) Intoxicated or Sedated? No (0) Impaired Gait? No (0) Mobility Assist Device Used? No (0) Altered Elimination? No (0) Fall Risk Score 1-2 Points = Low Risk. 3-4 Points = Moderate Risk. 5 or more points = High Risk. 0 Fall Score Greater andgt;= 3? No 12/08/2018 14:00 Primary DOC Guide - A. 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 Fall Risk Change N MEDICATIONS IV IV Fluid: B 12/08/2018 12:07 12/08/2018 16:26 ANIMAL SHELTER MANAGER Line #: 1 Rate: ml/hr Location: antecubital fossa left Ndl Gauge: 18 Notes: Field start. Flushes easily. IV Fluid: E 12/08/2018 15:50 12/08/2018 16:26 [facility] PATIENT NAME: ADDIE MENA [facility]ona MEDICAL REC #: [id number] [place] [address] EMERGENCY DEPARTMENT REPORT EMERGENCY DEPARTMENT PHYSICIAN ANIMAL SHELTER MANAGER Line #: 1 Rate: ml/hr Location: antecubital fossa left Ndl Gauge: 18 Notes: No s/s of infiltrate noted. I AND O VITALS VS-ROUTINE Time: 12/08/2018 12:07 B/P: 97/64 - Right Upper Arm - Sitting - Machine Pulse: 98 - Tamping Machine Operator Road Forms Resp: 16 Sa02: 98 Room Air Temp: 98.90 F - Axillary 12/08/2018 12:10 ANIMAL SHELTER MANAGER VS-Pain Time: 12/08/2018 12:07 Pain Level: -1 12/08/2018 12:10 ANIMAL SHELTER MANAGER VS-GCS Time: 12/08/2018 12:07 Visual: 4 Verbal: 3 Motor: 5 GCS Total: 12 12/08/2018 12:10 ANIMAL SHELTER MANAGER VS-HT/WT Time: 12/08/2018 12:07 Ht: 157.4 cm Stated Weight: 49.9 kg Estimated 12/08/2018 12:10 ANIMAL SHELTER MANAGER VS-Visual Time: 12/08/2018 12:07 12/08/2018 12:10 ANIMAL SHELTER MANAGER VS-FHT Time: 12/08/2018 12:07 12/08/2018 12:10 ANIMAL SHELTER MANAGER VS-Notes Time: 12/08/2018 12:07 MAP 76 12/08/2018 12:10 ANIMAL SHELTER MANAGER VS-ROUTINE Time: 12/08/2018 14:00 B/P: 108/68 - Right Upper Arm - Lying - Machine Pulse: 70 - Tamping Machine Operator Road Forms Resp: 16 Sa02: 99 Room Air 12/08/2018 14:22 ANIMAL SHELTER MANAGER VS-Pain Time: 12/08/2018 14:00 Pain Level: 0 12/08/2018 14:22 ANIMAL SHELTER MANAGER VS-GCS Time: 12/08/2018 14:00 Visual: 4 Verbal: 5 Motor: 6 GCS Total: 15 12/08/2018 14:22 ANIMAL SHELTER MANAGER VS-HT/WT Time: 12/08/2018 14:00 12/08/2018 14:22 ANIMAL SHELTER MANAGER VS-Visual Time: 12/08/2018 14:00 12/08/2018 14:22 ANIMAL SHELTER MANAGER VS-FHT Time: 12/08/2018 14:00 12/08/2018 14:22 ANIMAL SHELTER MANAGER VS-Notes Time: 12/08/2018 14:00 map 81 12/08/2018 14:22 ANIMAL SHELTER MANAGER VS-ROUTINE Time: 12/08/2018 15:50 B/P: 102/66 - Right Upper Arm - Sitting - Machine Pulse: 86 - Monitor Resp: 16 [facility] PATIENT NAME: ADDIE MENA [address] [facility]ona MEDICAL REC #: [id number] JESSICA Mast [address] EMERGENCY DEPARTMENT REPORT EMERGENCY DEPARTMENT PHYSICIAN Sa02: 99 Room Air 12/08/2018 16:25 ANIMAL SHELTER MANAGER VS-Pain Time: 12/08/2018 15:50 Pain Level: 0 12/08/2018 16:25 ANIMAL SHELTER MANAGER VS-GCS Time: 12/08/2018 15:50 Visual: 4 Verbal: 5 Motor: 6 GCS Total: 15 12/08/2018 16:25 ANIMAL SHELTER MANAGER VS-HT/WT Time: 12/08/2018 15:50 12/08/2018 16:25 ANIMAL SHELTER MANAGER VS-Visual Time: 12/08/2018 15:50 12/08/2018 16:25 ANIMAL SHELTER MANAGER VS-FHT Time: 12/08/2018 15:50 12/08/2018 16:25 ANIMAL SHELTER MANAGER VS-Notes Time: 12/08/2018 15:50 12/08/2018 16:25 ANIMAL SHELTER MANAGER ORDERS Discharge patient 12/08/2018 15:42 N/A Ordered: 12/08/2018 15:41 By . Other Reviewed: 12/08/2018 15:42 By . Other TURN LASTER ORDER: POCTROP 12/08/2018 12:46 None Ordered: 12/08/2018 12:46 Completed Time: 12/08/2018 12:46 Results Time: 12/08/2018 12:46 TURN LASTER ORDER: POCGLU 12/08/2018 12:41 None Ordered: 12/08/2018 12:41 Completed Time: 12/08/2018 12:41 Results Time: 12/08/2018 12:41 Drug screen basic panel (cath if unable to void in 30 mins) 12/08/2018 14:32 N/A Ordered: 12/08/2018 12:25 By Kavon Cevallos Completed Time: 12/08/2018 14:32 By Kavon Cevallos Noted Time: 12/08/2018 13:59 ANIMAL SHELTER MANAGER Results Time: 12/08/2018 14:31 CT head/brain w/o con 12/08/2018 14:39 N/A Ordered: 12/08/2018 12:21 By Kavon Cevallos Completed Time: 12/08/2018 14:39 By Kavon Cevallos Indication: Syncope Noted Time: 12/08/2018 14:23 Question: Are you or think you might be ? Answer: NO [facility] PATIENT NAME: ADDIE MENA [address] [facility] MEDICAL REC #: [id number] [place] [address] EMERGENCY DEPARTMENT REPORT EMERGENCY DEPARTMENT PHYSICIAN CBC with diff 12/08/2018 12:36 N/A Ordered: 12/08/2018 12:11 By Kavon Cevallos Completed Time: 12/08/2018 12:36 By Kavon Cevallos Noted Time: 12/08/2018 12:29 DJA Results Time: 12/08/2018 12:36 BMP 12/08/2018 13:01 N/A Ordered: 12/08/2018 12:11 By Kavon Cevallos Completed Time: 12/08/2018 13:01 By Kavon Cevallos Noted Time: 12/08/2018 12:29 DJA Results Time: 12/08/2018 13:01 (serum) 12/08/2018 13:01 N/A Ordered: 12/08/2018 12:11 By Kavon Cevallos Completed Time: 12/08/2018 13:01 By Kavon Cevallos Noted Time: 12/08/2018 12:29 DJA Results Time: 12/08/2018 13:01 EKG and most recent EKG 12/08/2018 12:29 N/A Ordered: 12/08/2018 12:11 By Kavon Cevallos Completed Time: 12/08/2018 12:16 By Kavon Cevallos Noted Time: 12/08/2018 12:15 DJA Liver profile 12/08/2018 13:01 N/A Ordered: 12/08/2018 12:11 By Kavon Cevallos Completed Time: 12/08/2018 13:01 By Kavon Cevallos Noted Time: 12/08/2018 12:29 DJA Results Time: 12/08/2018 13:01 IV NS bolus 1L over 60 min 12/08/2018 12:44 N/A Ordered: 12/08/2018 12:11 By Kavon Cevallos Completed Time: 12/08/2018 12:15 By Kavon Cevallos alarm security or surveillance monitor 12/08/2018 12:29 N/A Ordered: 12/08/2018 12:11 By Kavon Cevallos Completed Time: 12/08/2018 12:29 By Kavon Cevallos DISCHARGE [facility] PATIENT NAME: ADDIE MENA [facility] MEDICAL REC #: [id number] [place] [address] EMERGENCY DEPARTMENT REPORT EMERGENCY DEPARTMENT PHYSICIAN Diagnosis: Acute syncope, Acute dehydration 12/08/2018 15:42 Disposition: Time: 12/08/2018 15:41 Discharge Time: 12/08/2018 15:50 Type: *Discharge Condition: Stable for admission/discharge/t ransfer after emergency evaluation/treatment Category: *NOT APPLICABLE Referral: 12/08/2018 15:42 Admit Physician: . Other PRESCRIPTIONS CHARGES SIGNATURE Destiney Cevallos DO ROSS EDWARDO GALEANO ANIMAL SHELTER MANAGER [facility] PATIENT NAME: ADDIE MENA [address] [place] [address] Dr. Corona MEDICAL REC #: [id number] [place] [address] EMERGENCY DEPARTMENT REPORT EMERGENCY DEPARTMENT PHYSICIAN Normal [facility] GLUCOSE METERon 12-08-2018 Glucose [Mass/Vol] 91 mg/dL Normal 70-115 [facility] HCGon 12-08-2018 HCG Qn Negative Normal NEGATIVE [facility] Comment on above: Order Comment: Campu s: M Performed By: #### L [id number], [id number], L500.61425 #### [facility] [address] [place] [id number] LIVERon 12-08-2018 Albumin [Mass/Vol] 4.1 g/dL Normal 3.2-5.0 [facility] Comment on above: Order Comment: Campu s: M Performed By: #### L [id number], L500.80844, L500.35520 #### [facility] [address] [place] [id number] Albumin/Globulin [Mass ratio] 1.4 {ratio} Normal 0.8-2.0 [facility] Comment on above: Order Comment: Campu s: M Performed By: #### L 500.61232, L500.66929, L500.64188 #### [facility] [address] [place] [address] ALK PHOS 123 U/L High 45-117 [facility] Comment on above: Order Comment: Campu s: M Performed By: #### L 500.07396, L500.76970, L500.06487 #### [facility] [address] [place] [address] ALT [Catalytic activity/Vol] 16 U/L Normal 13-61 [facility] Comment on above: Order Comment: Campu s: M Result Comment: RESU LTS MAY BE FALSELY DEPRESSED AFTER THE ADMINISTRATION OF SULFASALAZINE AND/OR SULFAPYRIDINE. Performed By: #### L 500.42612, L500.38300, L500.99959 #### [facility] [address] [place] [address] BILI DIRECT 0.15 MG/DL Normal 0.00-0.20 [facility] Comment on above: Order Comment: Campu s: M Performed By: #### L 500.88162, L500.61497, L500.66482 #### [facility] [address] [place] [address] BILI TOTAL 0.7 MG/DL Normal 0.2-1.0 [facility] Comment on above: Order Comment: Campu s: M Performed By: #### L 500.06008, L500.08834, L500.57252 #### [facility] [address] [place], [place] [id number] Globulin (S) [Mass/Vol] 2.9 g/dL Normal 2.2-4.2 [facility] Comment on above: Order Comment: Campu s: M Performed By: #### L 500.79301, L500.04375, L500.50467 #### [facility] [address] [place] [address] Protein [Mass/Vol] 7.0 g/dL Normal 6.0-8.5 [facility] Comment on above: Order Comment: Campu s: M Performed By: #### L 500.94471, L500.23824, L500.25434 #### [facility] [address] [place] [address] SGOT (AST) 17 U/L Normal 8-34 [facility] Comment on above: Order Comment: Campu s: M Result Comment: RESU LTS MAY BE FALSELY DEPRESSED AFTER THE ADMINISTRATION OF SULFASALAZINE AND/OR SULFAPYRIDINE. Performed By: #### L 500.35257, L500.57653, L500.23636 #### [facility] [address] [place] [address] TROPONIN I POCon 12-08-2018 Troponin I.cardiac [Mass/Vol] 0.00 ng/mL Normal 0.0-0.06 [facility] Comment on above: Result Comment: 0.0 - 0.06 NG/ML - NON-DIAGNOSTIC (REFERENCE RANGE) 0.07 - 0.59 NG/ML - INDETERMINATE Greater than or equal to 0.6 NG/ML - INDICATIVE OF MYOCARDIAL DAMAGE UR DRUG ABUSEon 12-08-2018 UR AMPH Negative Normal Qubrkh=1370 [facility] Comment on above: Order Comment: Campu s: M Performed By: #### L 600.04146 #### [facility] [address] [place] [address] UR MARIAN Negative Normal Cqwmnz=847 [facility] Comment on above: Order Comment: Campu s: M Performed By: #### L 600.75791 #### [facility] [address] [place] [address] UR ARVIN Negative Normal Egzvqk=463 [facility] Comment on above: Order Comment: Campu s: M Performed By: #### L 600.52574 #### [facility] [address] [place] [address] UR LULY/THC Negative Normal Cutoff=50 [facility] Comment on above: Order Comment: Campu s: M Performed By: #### L [id number] #### [facility] [address] [place] [address] UR GEORGIE Negative Normal Lzrjmo=763 [facility] Comment on above: Order Comment: Campu s: M Performed By: #### L 600.36995 #### [facility] [address] [place] [address] UR OPIAT Negative Normal Poxbfa=630 [facility] Comment on above: Order Comment: Campu s: M Performed By: #### L 600.13045 #### [facility] [address] [place] [address] UR PCP Negative Normal Cutoff=25 [facility] Comment on above: Order Comment: Campu s: M Performed By: #### L [id number] #### [facility] [address] [place] [address] DRAB COMMENT Normal [facility] Comment on above: Order Comment: Campu s: M Result Comment: [facility] results are qualitative, providing a preliminary analytical result. A positive result for an assay should be confirmed by another nonimmunological, reference method. A negative result indicates that the assay material is either not present, or present at levels below the cutoff threshold for the analytical method range (AMR) validation. Performed By: #### L [id number] #### [facility] [address] [place] [address] Laboratory - Microbiology an d Antimicrobial susceptibilityon 03-26-2016 S. pyogenes Ag EIA Ql (Throat) Negative Normal [employer] No Panel InformationOrdered By: Abdifatah Sotomayor on 01-28-2015 SKIN TEST INTRADERMAL TB Negative Normal [employer], [employer] SURGICAL PATHOLOGY, CONVERTE Don 05-23-2013 [facility] Vital Signs Date Time Vital Sign Value Performing Clinician Facility 10-30-2024 10:41-0400 Body height 150.5 cm Mouna Coppola APRN.FOXING CUTTING MACHINE OPERATOR Work Phone: [facility] 10-30-2024 10:41-0400 Body mass index (BMI) [Ratio] 23.03 kg/m2 Mouna Coppola APRN.FOXING CUTTING MACHINE OPERATOR Work Phone: [facility] 10-30-2024 10:41-0400 Body weight 52.16 kg Mouna Coppola APRN.FOXING CUTTING MACHINE OPERATOR Work Phone: [facility] 10-30-2024 10:41-0400 Diastolic blood pressure 78 mm[Hg] Mouna Coppola APRN.FOXING CUTTING MACHINE OPERATOR Work Phone: [facility] 10-30-2024 10:41-0400 Systolic blood pressure 108 mm[Hg] Mouna Coppola APRN.FOXING CUTTING MACHINE OPERATOR Work Phone: [facility] 08-13-2024 03:21-0400 Body temperature 98.2 [degF] Dr. Jaycob Perera MD Work Phone: [facility] 08-13-2024 03:21-0400 Diastolic blood pressure 88 mm[Hg] Dr. Jaycob Perera MD Work Phone: [facility] 08-13-2024 03:21-0400 Heart rate 69 /min Dr. Jaycob Perera MD Work Phone: [facility] 08-13-2024 03:21-0400 Respiratory rate 18 /min Dr. Jaycob Perera MD Work Phone: [facility] 08-13-2024 03:21-0400 SaO2% (BldA) [Mass fraction] 99 % Dr. Jaycob Perera MD Work Phone: [facility] 08-13-2024 03:21-0400 Systolic blood pressure 106 mm[Hg] Dr. Jaycob Perera MD Work Phone: [facility] 08-12-2024 23:17-0400 Body height 149.[address] Jaycob Perera MD Work Phone: [facility] 08-12-2024 23:17-0400 Body mass index (BMI) [Percentile] Per age and sex 73.9 % Dr. Jaycob Perera MD Work Phone: [facility] 08-12-2024 23:17-0400 Body mass index (BMI) [Ratio] 24.2 kg/m2 Dr. Jaycob Perera MD Work Phone: [facility] 08-12-2024 23:17-0400 Body weight 54.[address] Jaycob Perera MD Work Phone: [facility] 03-21-2024 08:27-0500 Body temperature 97.81 [degF] [facility] DRY ROOM ATTENDANT.FOXING CUTTING MACHINE OPERATOR Work Phone: [facility] 03-21-2024 08:27-0500 Body weight 55.8 kg [facility] DRY ROOM ATTENDANT.FOXING CUTTING MACHINE OPERATOR Work Phone: [facility] 03-21-2024 08:27-0500 Diastolic blood pressure 76 mm[Hg] [facility] DRY ROOM ATTENDANT.FOXING CUTTING MACHINE OPERATOR Work Phone: [facility] 03-21-2024 08:27-0500 Heart rate 80 /min [facility] DRY ROOM ATTENDANT.FOXING CUTTING MACHINE OPERATOR Work Phone: [facility] 03-21-2024 08:27-0500 Respiratory rate 20 /min [facility] DRY ROOM ATTENDANT.FOXING CUTTING MACHINE OPERATOR Work Phone: [facility] 03-21-2024 08:27-0500 SaO2% (BldA) [Mass fraction] 98 % [facility] DRY ROOM ATTENDANT.FOXING CUTTING MACHINE OPERATOR Work Phone: [facility] 03-21-2024 08:27-0500 Systolic blood pressure 108 mm[Hg] [facility] DRY ROOM ATTENDANT.FOXING CUTTING MACHINE OPERATOR Work Phone: [facility] 01-22-2024 11:54-0500 Body weight 57.15 kg Porfirio Scott MD Work Phone: [facility] 01-22-2024 11:54-0500 Diastolic blood pressure 68 mm[Hg] Porfirio Scott MD Work Phone: [facility] 01-22-2024 11:54-0500 Systolic blood pressure 100 mm[Hg] Porfirio Scott MD Work Phone: [facility] 01-15-2024 09:40-0400 Body weight 57.15 kg Porfirio Scott MD Work Phone: [facility] 01-15-2024 09:40-0400 Diastolic blood pressure 62 mm[Hg] Porfirio Scott MD Work Phone: [facility] 01-15-2024 09:40-0400 Systolic blood pressure 100 mm[Hg] Porfirio Scott MD Work Phone: [facility] 09-25-2023 11:15-0400 Body weight 57.7 kg Porfirio Scott MD Work Phone: [facility] 09-25-2023 11:15-0400 Diastolic blood pressure 52 mm[Hg] Porfirio Scott MD Work Phone: [facility] 09-25-2023 11:15-0400 Systolic blood pressure 98 mm[Hg] Porfirio Scott MD Work Phone: [facility] 08-31-2023 05:15-0400 Body temperature 97.52 [degF] FABIEN LACY DO [facility] 08-31-2023 05:15-0400 Diastolic Blood Pressure Non-Invasive 70 mm[Hg] FABIEN LACY DO [facility] 08-31-2023 05:15-0400 Heart rate 91 /min FABIEN LACY DO [facility] 08-31-2023 05:15-0400 Respiratory rate 16 /min FABIEN LACY DO [facility] 08-31-2023 05:15-0400 Systolic Blood Pressure Non-Invasive 113 mm[Hg] FABIEN LACY DO [facility] 08-31-2023 00:06-0400 Body temperature 97.34 [degF] FABIEN LACY DO [facility] 08-31-2023 00:06-0400 Body weight 60.8 kg FABIEN LACY [employer] [facility] 08-31-2023 00:06-0400 Diastolic Blood Pressure Non-Invasive 73 mm[Hg] FABIEN LACY [employer] [facility] 08-31-2023 00:06-0400 Heart rate 116 /min FABIEN LACY [employer] [facility] 08-31-2023 00:06-0400 Respiratory rate 20 /min FABIEN LACY [employer] [facility] 08-31-2023 00:06-0400 Systolic Blood Pressure Non-Invasive 151 mm[Hg] FABIEN LACY [employer] [facility] 08-12-2023 07:35-0400 Body height 149.9 cm None [facility] [employer] 08-12-2023 07:35-0400 Body mass index (BMI) [Percentile] Per age and sex 86.25 % None Pcp [facility] 08-12-2023 07:35-0400 Body mass index (BMI) [Ratio] 26.3 kg/m2 None [facility] [employer] [facility] 08-12-2023 07:35-0400 Body temperature 98.2 [degF] None Pcp [facility] [employer] [facility] 08-12-2023 07:35-0400 Body weight 59.06 kg None Pcp [facility] [employer] [facility] 08-12-2023 07:35-0400 Diastolic blood pressure 80 mm[Hg] None Pcp [facility] 08-12-2023 07:35-0400 Heart rate 112 /min [facility] 08-12-2023 07:35-0400 Respiratory rate 18 /min None [facility] [employer] 08-12-2023 07:35-0400 SaO2% (BldA) [Mass fraction] 98 % None [facility] 08-12-2023 07:35-0400 Systolic blood pressure 121 mm[Hg] None [facility] 07-22-2023 23:00-0400 Body temperature 98.2 [degF] Kelli Goyal DO Work Phone: [employer] 07-22-2023 23:00-0400 Diastolic blood pressure 60 mm[Hg] Kelli Goyal DO Work Phone: [employer] 07-22-2023 23:00-0400 Heart rate 102 /min Kelli Goyal DO Work Phone: [employer] 07-22-2023 23:00-0400 Respiratory rate 20 /min Kellinikki Goyal DO Work Phone: [employer] 07-22-2023 23:00-0400 SaO2% (BldA) [Mass fraction] 100 % Kelli Goyal DO Work Phone: [employer] 07-22-2023 23:00-0400 Systolic blood pressure 108 mm[Hg] Kelli Goyal DO Work Phone: [employer] 07-22-2023 20:27-0400 Body height 149.9 cm Kelli Goyal DO Work Phone: [employer] 07-22-2023 20:27-0400 Body mass index (BMI) [Percentile] Per age and sex 86.2 % Kelli Goyal DO Work Phone: [employer] 07-22-2023 20:27-0400 Body mass index (BMI) [Ratio] 26.26 kg/m2 Kelli Goyal DO Work Phone: [employer] 07-22-2023 20:27-0400 Body weight 58.97 kg Kelli Goyal DO Work Phone: [facility] [employer] 06-08-2023 14:00-0400 Body temperature 97.4 [degF] [facility] 06-08-2023 14:00-0400 Diastolic blood pressure 74 mm[Hg] [facility] 06-08-2023 14:00-0400 Heart rate 89 /min [facility] 06-08-2023 14:00-0400 Respiratory rate 16 /min [facility] 06-08-2023 14:00-0400 SaO2% (BldA) [Mass fraction] 99 % [facility] 06-08-2023 14:00-0400 Systolic blood pressure 103 mm[Hg] [facility] 06-08-2023 10:45-0400 Body height 149.86 cm [facility] 06-08-2023 10:45-0400 Body mass index (BMI) [Percentile] Per age and sex 86.5 % [facility] 06-08-2023 10:45-0400 Body mass index (BMI) [Ratio] 26.3 kg/m2 [facility] [facility] 06-08-2023 10:45-0400 Body weight 59.05 kg [facility] 05-26-2023 22:34-0500 Body height 149.86 cm [facility] 05-26-2023 22:34-0500 Body mass index (BMI) [Percentile] Per age and sex 84.7 % [facility] 05-26-2023 22:34-0500 Body mass index (BMI) [Ratio] 25.8 kg/m2 [facility] 05-26-2023 22:34-0500 Body temperature 98 [degF] [facility] 05-26-2023 22:34-0500 Body weight 58 kg [facility] 05-26-2023 22:34-0500 Diastolic blood pressure 90 mm[Hg] [facility] 05-26-2023 22:34-0500 Heart rate 89 /min [facility] 05-26-2023 22:34-0500 Respiratory rate 14 /min [facility] 05-26-2023 22:34-0500 SaO2% (BldA) [Mass fraction] 100 % [facility] 05-26-2023 22:34-0500 Systolic blood pressure 134 mm[Hg] [facility] 05-04-2023 15:02-0500 Body height 150.5 cm Swetha Em LPN [facility] 05-04-2023 15:02-0500 Body mass index (BMI) [Percentile] Per age and sex 86 % Swetha M Manav [facility], [facility].; [facility]. 05-04-2023 15:02-0500 Body mass index (BMI) [Ratio] 26.24 kg/m2 Swetha Hunt Manav [facility]. 05-04-2023 15:02-0500 Body surface area Derived from formula 1.55 m2 Swetha Hunt Manav [facility], [facility].; [place] [employer] [facility]. 05-04-2023 15:02-0500 Body temperature 98.6 [degF] Swetha Hunt Manav [facility].; [employer] [facility]. Comment on above: Method: Tympanic 05-04-2023 15:02-0500 Body weight 59.42 kg Swetha Em [facility].; [place] [employer] [facility]. 05-04-2023 15:02-0500 Diastolic blood pressure 73 mm[Hg] Swetha Em [facility].; [employer]. Comment on above: Patient Position: Sitting; Cuff Location : Left Arm; Cuff Size: Standard 05-04-2023 15:02-0500 Heart rate 87 /min Swetha Em [facility].; [place] [employer] [facility]. Comment on above: Pattern: Regular 05-04-2023 15:02-0500 Systolic blood pressure 113 mm[Hg] Swetha Em [facility].; [place] [employer] [facility]. Comment on above: Patient Position: Sitting; Cuff Location : Left Arm; Cuff Size: Standard 04-06-2023 15:38-0500 Body height 150.5 cm Carrie Antonia [facility] Work Phone: [facility].; [place] [employer] [facility]. 04-06-2023 15:38-0500 Body mass index (BMI) [Percentile] Per age and sex 88 % Carrie Antonia [facility] Work Phone: [facility].; [place] [employer] [facility] 04-06-2023 15:38-0500 Body mass index (BMI) [Ratio] 26.84 kg/m2 Carrie Knight LPN Work Phone: [employer]; [employer]. 04-06-2023 15:38-0500 Body surface area Derived from formula 1.56 m2 Carrie Knight LPN Work Phone: [employer]; [employer]. 04-06-2023 15:38-0500 Body weight 60.78 kg Carrie Knight LPN Work Phone: [employer]; [employer]. 04-06-2023 15:38-0500 Diastolic blood pressure 82 mm[Hg] Carrie Knight LPN Work Phone: [employer]; [employer]. Comment on above: Patient Position: Sitting; Cuff Location : Left Arm; Cuff Size: Standard 04-06-2023 15:38-0500 Systolic blood pressure 119 mm[Hg] Carrie Knight LPN Work Phone: [place] [employer]; [employer]. Comment on above: Patient Position: Sitting; Cuff Location : Left Arm; Cuff Size: Standard 03-08-2023 14:39-0500 Body height 150.5 cm Madhuri Llanes MA [place] [employer] [facility].; [employer]. 03-08-2023 14:39-0500 Body mass index (BMI) [Percentile] Per age and sex 89 % Madhuri Llanes MA [place] [employer].; [employer]. 03-08-2023 14:39-0500 Body mass index (BMI) [Ratio] 27.11 kg/m2 Madhuri Llanes MA [employer] [employer].; [employer]. 03-08-2023 14:39-0500 Body surface area Derived from formula 1.57 m2 Madhuri Llanes MA [place] [employer].; [employer]. 03-08-2023 14:39-0500 Body temperature 97.7 [degF] Madhuri Llanes MA [place] [employer].; [employer]. 03-08-2023 14:39-0500 Body weight 61.41 kg Madhurinita Llanes JAVIER [facility].; [employer]. 03-08-2023 14:39-0500 Diastolic blood pressure 81 mm[Hg] Madhuri Mario Alberto HERRERA [facility].; [employer]. Comment on above: Patient Position: Sitting; Cuff Location : Left Arm; Cuff Size: Standard 03-08-2023 14:39-0500 Heart rate 99 /min Madhuri Llanes MA [facility].; [employer]. Comment on above: Pattern: Regular 03-08-2023 14:39-0500 Inhaled oxygen concentration 20 % Madhuri Llanes MA [facility].; [employer]. Comment on above: Room air 03-08-2023 14:39-0500 Inhaled oxygen concentration 21 % Madhuri Llanes MA [facility].; [employer]. Comment on above: Room air 03-08-2023 14:39-0500 SaO2% (BldA) [Mass fraction] 97 % Madhurinita Llanes MA [place] [employer].; [employer]. 03-08-2023 14:39-0500 Systolic blood pressure 115 mm[Hg] Madhuri Mario Alberto HERRERA [place] [employer] [facility].; [employer]. Comment on above: Patient Position: Sitting; Cuff Location : Left Arm; Cuff Size: Standard 10-27-2022 14:44-0400 Body height 150.5 cm Елена Rene LPN [facility].; [employer]. 10-27-2022 14:44-0400 Body mass index (BMI) [Percentile] Per age and sex 91 % Елена Rene LPN [facility].; [employer]. 10-27-2022 14:44-0400 Body mass index (BMI) [Ratio] 27.44 kg/m2 Елена Rene LPN [facility], [facility].; [employer]. 10-27-2022 14:44-0400 Body surface area Derived from formula 1.58 m2 Елена Rene LPN [facility], [facility].; [facility], [facility]. 10-27-2022 14:44-0400 Body temperature 98.1 [degF] Елена Rene [facility], [facility]. Comment on above: Method: Tympanic 10-27-2022 14:44-0400 Body weight 62.14 kg Елена Rene LPN [facility], [facility].; [facility]. 10-13-2022 09:25-0400 Body height 150.5 cm Елена Rene LPN [facility], [facility].; [facility], [facility]. 10-13-2022 09:25-0400 Body mass index (BMI) [Percentile] Per age and sex 91 % Елена Rene LPN [facility], [facility].; [facility], [facility]. 10-13-2022 09:25-0400 Body mass index (BMI) [Ratio] 27.64 kg/m2 Елена Rene LPN [facility], [facility].; [facility], [facility]. 10-13-2022 09:25-0400 Body surface area Derived from formula 1.58 m2 Елена Rene LPN [facility], [facility].; [facility], [facility]. 10-13-2022 09:25-0400 Body weight 62.6 kg Елена Rene LPN [facility], [facility].; [facility], [facility]. 10-13-2022 09:25-0400 Diastolic blood pressure 69 mm[Hg] Елена Rene LPN [facility], [facility].; [facility], [facility]. Comment on above: Patient Position: Sitting; Cuff Location : Left Arm; Cuff Size: Standard 10-13-2022 09:25-0400 Heart rate 83 /min Елена Rene LPN [facility], [facility].; [facility], [facility]. Comment on above: Pattern: Regular 10-13-2022 09:25-0400 Systolic blood pressure 101 mm[Hg] Елена Rene LPN [facility], [facility].; [place] [employer] [facility], [facility]. Comment on above: Patient Position: Sitting; Cuff Location : Left Arm; Cuff Size: Standard 08-24-2021 11:43-0400 Body temperature 98.1 [degF] Pavan Murphy MD Work Phone: [facility] 08-24-2021 11:43-0400 Diastolic blood pressure 60 mm[Hg] Pavan Murphy MD Work Phone: [facility] 08-24-2021 11:43-0400 Heart rate 70 /min Pavan Murphy MD Work Phone: [phone])[phone] [address] 08-24-2021 11:43-0400 Respiratory rate 16 /min Pavan Murphy MD Work Phone: [phone])[phone] [address] 08-24-2021 11:43-0400 SaO2% (BldA) [Mass fraction] 96 % Pavan Murphy MD Work Phone: 4(624)[phone] [address] 08-24-2021 11:43-0400 Systolic blood pressure 96 mm[Hg] Pavan Murphy MD Work Phone: 4(684)[phone] [address] 08-24-2021 10:59-0400 Body height 149.9 cm Pavan Murphy MD Work Phone: 2(421)[phone] [address] 08-24-2021 10:59-0400 Body mass index (BMI) [Percentile] Per age and sex 96.34 % Pavan Murphy MD Work Phone: [phone])[phone] [address] 08-24-2021 10:59-0400 Body mass index (BMI) [Ratio] 30.9 kg/m2 Pavan Murphy MD Work Phone: 4(627)[phone] [address] 08-24-2021 10:59-0400 Body weight 69.4 kg Pavan Murphy MD Work Phone: [phone](217)[phone] [address] 08-19-2021 18:10-0400 Diastolic blood pressure 57 mm[Hg] Gorge Cervantes MD Work Phone: [facility] 08-19-2021 18:10-0400 Heart rate 76 /min Gorge Cervantes MD Work Phone: [facility] 08-19-2021 18:10-0400 Respiratory rate 21 /min Gorge Cervantes MD Work Phone: [facility] 08-19-2021 18:10-0400 SaO2% (BldA) [Mass fraction] 99 % Gorge Cervantes MD Work Phone: [facility] 08-19-2021 18:10-0400 Systolic blood pressure 99 mm[Hg] Gorge Cervantes MD Work Phone: [facility] 08-19-2021 16:59-0400 Body height 149.9 cm Gorge Cervantes MD Work Phone: [facility] 08-19-2021 16:59-0400 Body mass index (BMI) [Percentile] Per age and sex 96.35 % Gorge Cervantes MD Work Phone: [facility] 08-19-2021 16:59-0400 Body mass index (BMI) [Ratio] 30.9 kg/m2 Gorge Cervantes MD Work Phone: [facility] 08-19-2021 16:59-0400 Body temperature 98.8 [degF] Gorge Cervantes MD Work Phone: [facility] 08-19-2021 16:59-0400 Body weight 69.4 kg Gorge Cervantes MD Work Phone: [facility] 10-08-2020 09:37-0400 Body height 148.59 cm Maribel Willson LPN [facility], [facility].; [employer]. 10-08-2020 09:37-0400 Body mass index (BMI) [Percentile] Per age and sex 79 % Maribel Willson LPN [facility], [facility].; [employer], [facility]. 10-08-2020 09:37-0400 Body mass index (BMI) [Ratio] 23.42 kg/m2 Maribel Willson LPN [facility], [facility].; [employer], [facility]. 10-08-2020 09:37-0400 Body surface area Derived from formula 1.44 m2 Maribel Willson LPN [place] [employer] [facility], [facility].; [employer], [facility]. 10-08-2020 09:37-0400 Body weight 51.71 kg Maribel Willson LPN [place] [employer] [facility], [facility].; [facility]. 10-08-2020 09:37-0400 Diastolic blood pressure 72 mm[Hg] Maribel Willson LPN [facility], [facility].; [place] [employer] [facility], [employer]. Comment on above: Patient Position: Sitting; Cuff Location : Left Arm; Cuff Size: Standard 10-08-2020 09:37-0400 Heart rate 102 /min Maribel Willson LPN [facility], [facility].; [employer], [employer]. Comment on above: Pattern: Regular 10-08-2020 09:37-0400 Systolic blood pressure 107 mm[Hg] Maribel Willson LPN [facility].; [employer]. Comment on above: Patient Position: Sitting; Cuff Location : Left Arm; Cuff Size: Standard 07-08-2020 13:51-0400 Body height 151.13 cm Maribel Willson LPN [facility], [facility].; [place] [employer] [facility], [employer]. 07-08-2020 13:51-0400 Body mass index (BMI) [Percentile] Per age and sex 72 % [facility].; [place] [employer] [facility], [employer]. 07-08-2020 13:51-0400 Body mass index (BMI) [Ratio] 22.24 kg/m2 Maribel Willson [facility], [facility].; [place] [employer] [facility], [employer]. 07-08-2020 13:51-0400 Body surface area Derived from formula 1.45 m2 Maribel Willson LPN [facility], [facility].; [employer] [facility], [employer]. 07-08-2020 13:51-0400 Body temperature 98.2 [degF] Maribel [facility].; [employer]. Comment on above: Method: Tympanic 07-08-2020 13:51-0400 Body weight 50.8 kg Maribel Willson LPN [facility], [facility].; [place] [employer] [facility], [employer]. 07-08-2020 13:51-0400 Heart rate 94 /min Maribel Willson LPN [facility], [facility].; [employer]. Comment on above: Pattern: Regular 07-08-2020 13:51-0400 Inhaled oxygen concentration 20 % Maribel Willson [facility]PH[facility], [facility].; [place] [employer] [facility]. Comment on above: Room air 07-08-2020 13:51-0400 Inhaled oxygen concentration 21 % Maribel Willson [facility], [facility].; [employer] [facility]. Comment on above: Room air 07-08-2020 13:51-0400 SaO2% (BldA) [Mass fraction] 98 % Maribel Willson WALKING DRAGLINE OILER [facility], [facility].; [place] [employer] [facility], [employer]. 04-20-2020 09:17-0500 Body height 150.11 cm PatMercedes Sotomayor LPN [facility].; [place] [employer] [facility], [employer]. 04-20-2020 09:17-0500 Body mass index (BMI) [Percentile] Per age and sex 64 % Abdifatah Sotomayor LPN [facility], [facility].; [place] [employer] [facility], [employer]. 04-20-2020 09:17-0500 Body mass index (BMI) [Ratio] 21.34 kg/m2 PatMercedes oStomayor LPN [facility], [facility].; [place] [employer] [facility], [employer]. 04-20-2020 09:17-0500 Body surface area Derived from formula 1.41 m2 PatMercedes Sotomayor LPN [facility], [facility].; [place] [employer] [facility], [employer]. 04-20-2020 09:17-0500 Body weight 48.08 kg PatMercedes Pichardoey RAI [facility], [facility].; [employer] [facility], [employer]. 04-20-2020 09:17-0500 Diastolic blood pressure 73 mm[Hg] PatMercedes Sotomayor LPN [facility], [facility].; [employer] [facility]. Comment on above: Patient Position: Sitting; Cuff Location : Left Arm; Cuff Size: Large 04-20-2020 09:17-0500 Heart rate 109 /min PatMercedes Sotomayor LPN [facility], [facility].; [employer]. Comment on above: Pattern: Regular 04-20-2020 09:17-0500 Systolic blood pressure 105 mm[Hg] PatMercedes Sotomayor LPN [facility], [facility].; [employer]. Comment on above: Patient Position: Sitting; Cuff Location : Left Arm; Cuff Size: Large 04-10-2020 14:59-0500 Body height 151.13 cm Nancy Jordanyasmani [facility].; [employer] [facility], [facility] 04-10-2020 14:59-0500 Body mass index (BMI) [Percentile] Per age and sex 64 % Nancy Horn WALKING DRAGLINE OILER [facility] [employer] [facility], [facility] 04-10-2020 14:59-0500 Body mass index (BMI) [Ratio] 21.25 kg/m2 Nancy Justina [facility], [facility].; [place] [employer] [facility], [facility]. 04-10-2020 14:59-0500 Body surface area Derived from formula 1.42 m2 Nancy Jordanyasmani WALKING DRAGLINE OILER [facility], [facility].; [place] [employer] [facility], [facility]. 04-10-2020 14:59-0500 Body weight 48.54 kg Nancy Justina WALKING DRAGLINE OILER [place] [employer] [facility], [facility].; [employer], [employer]. 04-10-2020 14:59-0500 Diastolic blood pressure 75 mm[Hg] Nancy Jordanyasmani [facility], [facility].; [employer], [employer]. Comment on above: Patient Position: Sitting; Cuff Location : Left Arm; Cuff Size: Standard 04-10-2020 14:59-0500 Heart rate 85 /min Nancy Jordanyasmani WALKING DRAGLINE OILER [facility], [facility].; [employer], [employer]. Comment on above: Pattern: Regular 04-10-2020 14:59-0500 Systolic blood pressure 111 mm[Hg] Nancy Jordanyasmani WALKING DRAGLINE OILER [facility], [facility].; [employer], [employer]. Comment on above: Patient Position: Sitting; Cuff Location : Left Arm; Cuff Size: Standard 01-23-2020 13:50-0500 Body height 151.13 cm Jessica Grey LPN [facility], [facility].; [employer], [employer]. 01-23-2020 13:50-0500 Body mass index (BMI) [Percentile] Per age and sex 67 % Jessica Grey LPN [place] [employer] [facility].; [employer], [employer]. 01-23-2020 13:50-0500 Body mass index (BMI) [Ratio] 21.45 kg/m2 Jessica Grey LPN [facility] [employer] [facility], [employer]. 01-23-2020 13:50-0500 Body surface area Derived from formula 1.43 m2 Jessica Grey LPN [facility] [employer] 01-23-2020 13:50-0500 Body weight 48.99 kg Jessica Grey LPN [facility] [employer], [employer]. 01-23-2020 13:50-0500 Diastolic blood pressure 72 mm[Hg] Jessica Grey LPN [facility] [employer], [employer]. Comment on above: Patient Position: Sitting; Cuff Location : Left Arm; Cuff Size: Standard 01-23-2020 13:50-0500 Heart rate 76 /min Jessica Grey LPN [facility] [employer], [employer]. Comment on above: Pattern: Regular 01-23-2020 13:50-0500 Systolic blood pressure 106 mm[Hg] Jessica Grey LPN [facility] [employer], [employer]. Comment on above: Patient Position: Sitting; Cuff Location : Left Arm; Cuff Size: Standard 10-09-2019 10:03-0400 Body height 151.13 cm Jessica Grey LPN [facility] [employer], [employer]. 10-09-2019 10:03-0400 Body mass index (BMI) [Percentile] Per age and sex 82 % Jessica Grey LPN [facility] [employer], [employer]. 10-09-2019 10:03-0400 Body mass index (BMI) [Ratio] 23.38 kg/m2 Jessica Grey LPN [facility], [facility].; [employer], [employer]. 10-09-2019 10:03-0400 Body surface area Derived from formula 1.48 m2 Jessica Grey LPN [facility] [employer], [employer]. 10-09-2019 10:03-0400 Body weight 53.4 kg Jessica Grey LPN [facility] [employer], [employer]. 10-09-2019 10:03-0400 Diastolic blood pressure 60 mm[Hg] Jessica Grey LPN [facility] [employer], [employer]. Comment on above: Patient Position: Sitting; Cuff Location : Left Arm; Cuff Size: Standard 10-09-2019 10:03-0400 Heart rate 77 /min Jessica Grey [facility], [facility].; [place] [employer] [facility], [employer]. Comment on above: Pattern: Regular 10-09-2019 10:03-0400 Systolic blood pressure 93 mm[Hg] Jessica Grey LPH[facility], [facility].; [employer], [employer]. Comment on above: Patient Position: Sitting; Cuff Location : Left Arm; Cuff Size: Standard 04-30-2019 08:19-0500 Body height 152.4 cm Neilee L Vess [facility].; [employer], [employer]. 04-30-2019 08:19-0500 Body mass index (BMI) [Percentile] Per age and sex 66 % Neilee L Vess [facility], [facility].; [employer], [facility]. 04-30-2019 08:19-0500 Body mass index (BMI) [Ratio] 20.9 kg/m2 Neilee L Vess [facility], [facility].; [employer], [facility]. 04-30-2019 08:19-0500 Body surface area Derived from formula 1.43 m2 Neilee L Vess [facility] [employer] [facility], [facility].; [employer], [facility]. 04-30-2019 08:19-0500 Body temperature 99.3 [degF] Neilee L Vess [facility] [employer] [facility], [facility].; [employer], [employer]. Comment on above: Method: Tympanic 04-30-2019 08:19-0500 Body weight 48.54 kg Neilee L Vess WALKING DRAGLINE OILER [place] [employer] [facility], [facility].; [employer], [employer]. 03-29-2019 09:33-0500 Body height 152.4 cm Nancy Horn [facility] [employer] [facility], [facility].; [employer], [employer]. 03-29-2019 09:33-0500 Body mass index (BMI) [Percentile] Per age and sex 72 % Nancy Horn WALKING DRAGLINE OILER [place] [employer] [facility], [facility].; [employer], [employer]. 03-29-2019 09:33-0500 Body mass index (BMI) [Ratio] 21.48 kg/m2 Nancy Justina WALKING DRAGLINE OILER [employer], [employer].; [employer], [employer]. 03-29-2019 09:33-0500 Body surface area Derived from formula 1.45 m2 Nancy Horn [facility].; [employer], [employer]. 03-29-2019 09:33-0500 Body weight 49.9 kg Nancy Horn [facility].; [employer]. 01-11-2019 14:23-0400 Body height 152.4 cm Nancy Horn [facility], [employer].; [employer]. 01-11-2019 14:23-0400 Body mass index (BMI) [Percentile] Per age and sex 73 % Nancy Horn [facility], [employer].; [employer]. 01-11-2019 14:23-0400 Body mass index (BMI) [Ratio] 21.48 kg/m2 Nancy Horn [facility], [employer].; [employer]. 01-11-2019 14:23-0400 Body surface area Derived from formula 1.45 m2 Nancy Horn [facility], [employer].; [employer]. 01-11-2019 14:23-0400 Body temperature 99.1 [degF] Nancy Horn [facility], [employer].; [employer]. Comment on above: Method: Tympanic 01-11-2019 14:23-0400 Body weight 49.9 kg Nancy Horn [facility].; [employer]. 01-11-2019 14:23-0400 Inhaled oxygen concentration 20 % Nancy Horn [facility].; [employer]. Comment on above: Room air 01-11-2019 14:23-0400 Inhaled oxygen concentration 21 % Nancy Horn [facility].; [employer]. Comment on above: Room air 01-11-2019 14:23-0400 SaO2% (BldA) [Mass fraction] 99 % Nancy Horn [facility].; [employer]. 12-10-2018 08:57-0400 Body height 152.4 cm Abdifatah Sotomayor [facility].; [employer], [employer]. 12-10-2018 08:57-0400 Body mass index (BMI) [Percentile] Per age and sex 70 % Abdifatah Sotomayor [facility], Inc.; [employer], [employer]. 12-10-2018 08:57-0400 Body mass index (BMI) [Ratio] 21.09 kg/m2 Abdifatah [facility]otom[facility]or [facility], Inc.; [employer], [employer]. 12-10-2018 08:57-0400 Body surface area Derived from formula 1.44 m2 Abdifatah [facility]otom[facility]or [facility], Inc.; [employer], [employer]. 12-10-2018 08:57-0400 Body weight 48.99 kg Abdifatah [facility]otomayor [facility], Inc.; [employer]. 12-10-2018 08:57-0400 Diastolic blood pressure 71 mm[Hg] Abdifatah [facility]otom[facility]or [facility], Inc.; [employer]. Comment on above: Patient Position: Sitting; Cuff Location : Left Arm; Cuff Size: Large 12-10-2018 08:57-0400 Heart rate 71 /min Abdifatah [facility]otomayor [facility], Inc.; [employer]. Comment on above: Pattern: Regular 12-10-2018 08:57-0400 Systolic blood pressure 105 mm[Hg] Abdifatah [facility]otomayor [facility], Inc.; [employer]. Comment on above: Patient Position: Sitting; Cuff Location : Left Arm; Cuff Size: Large 10-10-2018 13:16-0400 Body height 152.4 cm [facility], [employer].; [employer]. 10-10-2018 13:16-0400 Body mass index (BMI) [Percentile] Per age and sex 77 % [facility] [employer].; [employer]. 10-10-2018 13:16-0400 Body mass index (BMI) [Ratio] 21.87 kg/m2 Isamar Day [facility] [employer], [employer].; [employer]. 10-10-2018 13:16-0400 Body surface area Derived from formula 1.46 m2 Isamar Day [facility] Inc.; [employer]. 10-10-2018 13:16-0400 Body weight 50.8 kg Isamar Day [facility], Inc.; [employer]. 10-10-2018 13:16-0400 Diastolic blood pressure 64 mm[Hg] Isamar Day [facility].; [employer]. Comment on above: Patient Position: Sitting; Cuff Location : Left Arm; Cuff Size: Standard 10-10-2018 13:16-0400 Heart rate 69 /min Isamar Day [facility], [employer].; [employer]. Comment on above: Pattern: Regular 10-10-2018 13:16-0400 Systolic blood pressure 102 mm[Hg] Isamar [facility].; [employer]. Comment on above: Patient Position: Sitting; Cuff Location : Left Arm; Cuff Size: Standard 05-07-2018 11:40-0500 Body height 151.13 cm Neilee L Vess [facility], Inc.; [employer]. 05-07-2018 11:40-0500 Body mass index (BMI) [Percentile] Per age and sex 75 % Neilee L Vess [facility], Inc.; [employer], [employer]. 05-07-2018 11:40-0500 Body mass index (BMI) [Ratio] 21.25 kg/m2 Neilee L Vess [facility] Inc.; [employer]. 05-07-2018 11:40-0500 Body surface area Derived from formula 1.42 m2 Neilee L Vess [facility] [employer], [employer].; [employer]. 05-07-2018 11:40-0500 Body temperature 98.6 [degF] Neilee L Vess [facility], [employer].; [employer]. Comment on above: Method: Tympanic 05-07-2018 11:40-0500 Body weight 48.54 kg Neilee L Vess [facility], Inc.; [employer], Inc. 02-20-2018 14:040500 Body height 151.13 cm Abdifatah Sotomayor [facility], Inc.; [employer], Inc. 02-20-2018 14:04-0500 Body mass index (BMI) [Percentile] Per age and sex 69 % Pat Stuckey [facility] [employer] [facility], Inc.; [employer], Inc. 02-20-2018 14:04-0500 Body mass index (BMI) [Ratio] 20.46 kg/m2 Pat Stuckey [facility] [employer] [facility], Inc.; [employer], Inc. 02-20-2018 14:04-0500 Body surface area Derived from formula 1.4 m2 Abdifatah Sotomayor [facility] [employer] [facility], Inc.; [employer], [employer]. 02-20-2018 14:04-0500 Body temperature 98.3 [degF] Abdifatah Sotomayor [facility] [employer] [facility], Inc.; [employer]. Comment on above: Method: Tympanic 02-20-2018 14:040500 Body weight 46.72 kg PatMercedes Sotomayor [facility] [employer] [facility], Inc.; [employer], Inc. 12-04-2017 10:50-0400 Body height 151.13 cm Abdifatah Sotomayor [facility] [employer] [facility], Inc.; [employer], [employer]. 12-04-2017 10:50-0400 Body mass index (BMI) [Percentile] Per age and sex 74 % PateMrcedes Sotomayor [facility] [employer] [facility], Inc.; [employer], [employer]. 12-04-2017 10:50-0400 Body mass index (BMI) [Ratio] 20.85 kg/m2 Abdifatah Sotomayor [facility] [employer], Inc[employer], Inc. 12-04-2017 10:50-0400 Body surface area Derived from formula 1.41 m2 Abdifatah Sotomayor [facility] [employer] [facility], Inc.; [employer]. 12-04-2017 10:50-0400 Body temperature 98.7 [degF] Abdifatah Sotomayor [facility] [employer] [facility], Inc.; [employer], Inc. Comment on above: Method: Tympanic 12-04-2017 10:50-0400 Body weight 47.63 kg Abdifatah Sotomayor [facility] [employer] [facility], Inc.; [employer], Inc. 10-09-2017 15:03-0400 Body height 151.13 cm Jessica [facility] [employer] [facility], Inc.; [employer], Inc. 10-09-2017 15:03-0400 Body mass index (BMI) [Percentile] Per age and sex 75 % Jessica [facility], Inc.; [employer], Inc. 10-09-2017 15:03-0400 Body mass index (BMI) [Ratio] 20.85 kg/m2 Jessica [facility] [employer] [facility], Inc.; [employer], Inc. 10-09-2017 15:03-0400 Body surface area Derived from formula 1.41 m2 Jessica [facility] [employer] [facility], Inc.; [employer], Inc. 10-09-2017 15:03-0400 Body weight 47.63 kg Jessica [facility] [employer], [employer].; [employer], Inc. 10-09-2017 15:03-0400 Diastolic blood pressure 64 mm[Hg] Jessica Grey [facility] [employer] [facility], Inc.; [employer], Inc. Comment on above: Patient Position: Sitting; Cuff Location : Left Arm; Cuff Size: Standard 10-09-2017 15:03-0400 Heart rate 82 /min Jessica Grey [facility] [employer] [facility], Inc.; [employer] Comment on above: Pattern: Regular 10-09-2017 15:03-0400 Systolic blood pressure 107 mm[Hg] Jessica [facility] [employer] [facility], Inc.; [employer], Inc. Comment on above: Patient Position: Sitting; Cuff Location : Left Arm; Cuff Size: Standard 02-23-2017 10:32-0500 Body height 149.22 cm Ainsley Thao RN [place] [employer] [facility], Inc.; [employer], Inc. 02-23-2017 10:32-0500 Body mass index (BMI) [Percentile] Per age and sex 74 % Ainsley Thao RN [facility]quezDigiZmart.; [employer]. 02-23-2017 10:32-0500 Body mass index (BMI) [Ratio] 20.29 kg/m2 Ainsley Thao RN [employer].; [employer]. 02-23-2017 10:32-0500 Body surface area Derived from formula 1.37 m2 Ainsley Thao RN [facility].; [employer]. 02-23-2017 10:32-0500 Body weight 45.18 kg Ainsley Thao RN [employer].; [employer]. 02-23-2017 10:32-0500 Diastolic blood pressure 56 mm[Hg] Ainsley Thao RN [employer].; [employer]. Comment on above: Patient Position: Sitting; Cuff Location : Left Arm; Cuff Size: Standard 02-23-2017 10:32-0500 Heart rate 74 /min Ainsley Thao RN [employer].; [employer]. Comment on above: Pattern: Regular 02-23-2017 10:32-0500 Systolic blood pressure 91 mm[Hg] Ainsley Thao RN [employer].; [employer]. Comment on above: Patient Position: Sitting; Cuff Location : Left Arm; Cuff Size: Standard 09-07-2016 13:170400 Body height 147.32 cm Jessica Grey LPN [employer].; [employer]. 09-07-2016 13:170400 Body mass index (BMI) [Percentile] Per age and sex 77 % Jessica Grey LPN [employer].; [employer]. 09-07-2016 13:17-0400 Body mass index (BMI) [Ratio] 20.27 kg/m2 Jessica Grey LPN [employer].; [employer]. 09-07-2016 13:170400 Body surface area Derived from formula 1.34 m2 Jessica Grey LPN [employer].; [employer]. 09-07-2016 13:17-0400 Body temperature 98.8 [degF] Jessica Grey LPN [employer].; [employer] 09-07-2016 13:17-0400 Body weight 44 kg Jessica Grey LPN [facility].; [employer]. 03-31-2016 16:31-0500 Body height 147.32 cm Gemma Deal RN [employer]quezDigiZmart.; [employer] 03-31-2016 16:31-0500 Body mass index (BMI) [Percentile] Per age and sex 73 % Gemma Deal RN [employer].; [employer]. 03-31-2016 16:31-0500 Body mass index (BMI) [Ratio] 19.44 kg/m2 Gemma Deal RN [employer].; [employer]. 03-31-2016 16:31-0500 Body surface area Derived from formula 1.32 m2 Gemma Deal RN [employer].; [employer]. 03-31-2016 16:31-0500 Body temperature 99.4 [degF] Gemma Deal RN [employer].; [employer]. Comment on above: Method: Tympanic 03-31-2016 16:31-0500 Body weight 42.18 kg Gemma Deal RN [employer].; [employer] 03-26-2016 09:09-0500 Body height 147.32 cm Carrie [facility] Work Phone: [employer].; [employer]. 03-26-2016 09:09-0500 Body mass index (BMI) [Percentile] Per age and sex 71 % [facility] Work Phone: [employer].; [employer]. 03-26-2016 09:09-0500 Body mass index (BMI) [Ratio] 19.23 kg/m2 [facility] Work Phone: [employer].; [employer]. 03-26-2016 09:09-0500 Body surface area Derived from formula 1.31 m2 Carrie Knight LPN Work Phone: [employer].; [employer]. 03-26-2016 09:09-0500 Body temperature 99 [degF] Carrie Knight LPN Work Phone: [employer].; [employer]. Comment on above: Method: Tympanic 03-26-2016 09:09-0500 Body weight 41.73 kg Carrie Knight LPN Work Phone: [employer].; [employer]. 01-26-2016 09:28-0500 Body height 145.41 cm Abdifatah Sotomayor [facility], [employer].; [employer]. 01-26-2016 09:28-0500 Body mass index (BMI) [Percentile] Per age and sex 77 % Abdifatah Sotomayor [facility], Inc.; [employer], [employer]. 01-26-2016 09:28-0500 Body mass index (BMI) [Ratio] 19.73 kg/m2 Abdifatah Sotomayor [facility], Inc.; [employer], [employer]. 01-26-2016 09:28-0500 Body surface area Derived from formula 1.3 m2 Abdifatah Sotomayor [employer] Man[facility]quezGAM[facility]IL, Inc.; [employer], [employer]. 01-26-2016 09:28-0500 Body temperature 97.3 [degF] Abdifatah Sotomayor [facility], [employer].; [employer]. Comment on above: Method: Tympanic 01-26-2016 09:28-0500 Body weight 41.73 kg Abdifatah Sotomayor [facility], [employer].; [employer]. 09-24-2015 15:44-0400 Body height 144.15 cm Swetha Em [facility], Inc.; [employer]. 09-24-2015 15:44-0400 Body mass index (BMI) [Percentile] Per age and sex 72 % Swetha Em [facility].; [employer]. 09-24-2015 15:44-0400 Body mass index (BMI) [Ratio] 18.99 kg/m2 Swetha M Manav [employer] [facility], Inc.; [employer], Inc. 09-24-2015 15:44-0400 Body surface area Derived from formula 1.26 m2 Swetha Hunt Manav [employer] [facility], Inc.; [employer] 09-24-2015 15:44-0400 Body temperature 99.1 [degF] Swetha Hunt Manav [facility] Inc.; [employer]. Comment on above: Method: Tympanic 09-24-2015 15:44-0400 Body weight 39.46 kg Swetha Marilee Manva [employer] [facility].; [employer], Inc. 02-25-2015 17:43-0500 Body height 142.24 cm Ainsley Thao RN [facility].; [employer]. 02-25-2015 17:43-0500 Body mass index (BMI) [Percentile] Per age and sex 58 % Ainsley Thao RN [facility].; [employer], [employer]. 02-25-2015 17:43-0500 Body mass index (BMI) [Ratio] 17.49 kg/m2 Ainsley Thao RN [facility].; [employer]. 02-25-2015 17:43-0500 Body surface area Derived from formula 1.19 m2 Ainsley Thao RN [facility].; [employer]. 02-25-2015 17:43-0500 Body temperature 98.7 [degF] Ainsley Thao RN [facility].; [employer]. Comment on above: Method: Tympanic 02-25-2015 17:43-0500 Body weight 35.38 kg Ainsley Thao RN [employer].; [employer]. 12-31-2014 11:02-0400 Body height 142.24 cm Abdifatah Sotomayor LPN [employer].; [employer]. 12-31-2014 11:02-0400 Body mass index (BMI) [Percentile] Per age and sex 32 % Abdifatah Sotomayor [facility], [facility].; [employer] [facility], [employer]. 12-31-2014 11:02-0400 Body mass index (BMI) [Ratio] 15.92 kg/m2 Abdifatah Sotomayor [facility], [facility].; [employer]. 12-31-2014 11:02-0400 Body surface area Derived from formula 1.14 m2 Abdifatah Sotomayor [employer] [facility], [facility].; [employer], [employer]. 12-31-2014 11:02-0400 Body temperature 98.2 [degF] Abdifatah [facility]otomayor [facility].; [employer]. Comment on above: Method: Tympanic 12-31-2014 11:02-0400 Body weight 32.21 kg Abdifatah Sotomayor [facility].; [employer], [employer]. Encounters Encounter Date Encounter Type Care Provider Facility Start: 10-30-2024 End: 10-30-2024 Patient encounter procedure Mouna Coppola APRN.CNP Work Phone: OB/Gynecology Comment on above: Encounter for gyneco logical examination (general) (routine) without abnormal findings (Primary Dx); Screen for STD (sexually transmitted disease) Start: 10-30-2024 End: 10-30-2024 Patient encounter status Mouna Coppola APRN.CNP Work Phone: [facility] Work Phone: Start: 08-12-2024 End: 08-13-2024 Emergency department patient visit Dr. Jaycob Perera MD Work Phone: -Emergency Department Work Phone: Start: 08-12-2024 End: 08-12-2024 ambulatory Joelle Spangler RN Work Phone: N[employer]SE [employer] Comment on above: Chest Pain Start: 05-06-2024 End: 05-06-[address] Jaycob Perera MD -Laboratory [facility] Start: 05-06-2024 End: 05-06-2024 ambulatory Jaycob Oscar Taveramarie Facility:[facility] Start: 04-08-2024 End: 04-08-2024 ambulatory [facility] Facility[facility] Start: 04-03-2024 End: 04-03-2024 Telephone follow-up Darío Woods MD Work Phone: [facility] Start: 04-03-2024 End: 04-03-2024 ambulatory Jaycob Oscar Dilma Facility:[facility] Start: 04-02-2024 End: 04-03-2024 Emergency department patient visit Medardocolt Gill Facility:[facility] Start: 03-21-2024 End: 03-21-2024 ambulatory PORFIRIO SCOTT Facility:[facility] Start: 03-21-2024 End: 03-21-2024 Office outpatient visit 25 minutes Dwayne Abdi APRN.CNP Work Phone: [facility] Comment on above: Bacterial sinusitis (Primary Dx) Start: 01-22-2024 End: 01-22-2024 ambulatory PORFIRIO SCOTT Facility:[facility] Start: 01-22-2024 End: 01-22-2024 Patient encounter procedure Porfirio Scott MD Work Phone: OB/Gynecology Comment on above: Bacterial vaginitis (Primary Dx); Elevated glucose Start: 01-19-2024 End: 01-22-2024 Telephone encounter Porfirio Scott MD Work Phone: OB/Gynecology Comment on above: Results Start: 01-15-2024 End: 01-15-2024 ambulatory PORFIRIO SCOTT Facility:[facility] Start: 01-15-2024 End: 01-15-2024 ambulatory PORFIRIO SCOTT Facility:[facility] Start: 01-15-2024 End: 01-15-2024 Patient encounter procedure Porfirio Scott MD Work Phone: OB/Gynecology Comment on above: Acute vaginitis (Radha abdifatah Dx); Screening examination for STD (sexually transmitted disease); Malaise and fatigue Start: 11-21-2023 End: 11-21-2023 Telephone follow-up Darío Woods MD Work Phone: [facility] Start: 11-17-2023 End: 11-17-2023 Emergency department patient visit Abril Aguilar Facility:[facility] Start: 11-17-2023 End: 11-17-2023 ambulatory DARÍO WOODS Facility:[facility] Start: 11-17-2023 End: 11-17-2023 Patient encounter procedure Yaquelin Ellison APRN.CNP Work Phone: [facility] Comment on above: Syncope, unspecified syncope type (Primary Dx); Blurred vision; Headache, unspecified headache type Start: 09-28-2023 End: 09-28-2023 ambulatory PORFIRIO SCOTT OB/Gynecology Start: 09-28-2023 End: 09-28-2023 Patient encounter procedure [employer]i [employer] OB/Gynecology Start: 09-25-2023 End: 09-25-2023 ambulatory PORFIRIO SCOTT Facility:[facility] Start: 09-25-2023 End: 09-25-2023 Patient encounter procedure Porfirio Scott MD Work Phone: OB/Gynecology Comment on above: Lower abdominal pain (Primary Dx); Vaginal discharge; Irregular menses Start: 09-15-2023 End: 09-15-2023 ambulatory Jonathan ALEXANDRE [facility] Start: 09-04-2023 End: 09-04-2023 Telephone follow-up Darío Woods MD Work Phone: [facility] Start: 08-31-2023 End: 08-31-2023 Emergency department patient visit FABIEN Marilee BAMBI NOEL [facility] Start: 08-12-2023 End: 08-12-2023 Emergency department patient visit NONE [facility] Start: 08-12-2023 End: 08-12-2023 Emergency department patient visit None Pcp [facility] Emergency Dept Comment on above: Patient left without being seen (Primary Dx) Start: 07-24-2023 Review Darío Woods MD Work Phone: [employer] Start: 07-22-2023 Emergency department patient visit Physician Tejal Schrader [facility] Start: 07-22-2023 End: 07-23-2023 Emergency department patient visit KELLI GOYAL [facility] Start: 07-22-2023 End: 07-22-2023 Emergency department patient visit Kelli Goyal DO Work Phone: [facility] Emergency Department Comment on above: Seizure-like activit y (HCC) (Primary Dx) Start: 06-08-2023 End: 06-08-2023 Emergency department patient visit [facility]Emergency Department Work Phone: Start: 05-26-2023 End: 05-26-2023 Emergency department patient visit [facility] Work Phone: Start: 05-05-2023 End: 05-05-2023 Medication Darío Woods MD Work Phone: [employer] Start: 05-04-2023 End: 05-04-2023 Office outpatient visit 15 minutes Darío Woods MD Work Phone: [employer] Start: 04-06-2023 End: 04-06-2023 Patient encounter procedure Darío Woods MD Work Phone: [employer] Start: 04-06-2023 Review Darío Woods MD Work Phone: [employer] Start: 03-08-2023 End: 03-08-2023 ambulatory NICOLE PAC SANTANA [facility] Start: 03-08-2023 End: 03-08-2023 Office outpatient visit 25 minutes Darío Woods MD Work Phone: [employer] Start: 03-08-2023 Review Darío Woods MD Work Phone: [employer] Start: 10-27-2022 End: 10-27-2022 Office outpatient visit 15 minutes Darío Woods MD Work Phone: [employer] Start: 10-13-2022 End: 10-13-2022 Patient encounter status Darío Woods MD Work Phone: [employer]; [employer] Start: 10-13-2022 End: 10-13-2022 Periodic preventive med est patient 12-17yrs Darío Woods MD Work Phone: [employer] Start: 04-20-2022 End: 04-20-2022 ambulatory GUILLE NOVA [facility] Start: 11-09-2021 End: 11-09-2021 ambulatory BILL THERESE [facility] Start: 10-26-2021 End: 10-26-2021 ambulatory KELLI ANÍBAL BEE [facility] Start: 08-24-2021 End: 08-24-2021 Emergency department patient visit Pavan Murphy MD Work Phone: [facility] Emergency Dept Comment on above: Psychogenic nonepile ptic seizure (Primary Dx) Start: 08-19-2021 End: 08-19-2021 Emergency department patient visit Gorge Cervantes MD Work Phone: [facility] Emergency Dept Comment on above: Observed seizure-lik e activity (HCC) (Primary Dx) Start: 01-28-2021 End: 01-28-2021 Telephone follow-up Darío Woods MD Work Phone: [employer] Start: 01-06-2021 End: 01-06-2021 Medication Darío Woods MD Work Phone: [employer] Start: 11-24-2020 End: 11-24-2020 Telephone follow-up Darío Woods MD Work Phone: [employer] Start: 11-11-2020 End: 11-11-2020 Telephone follow-up Darío Woods MD Work Phone: [employer] Start: 10-08-2020 End: 10-08-2020 Patient encounter status Darío Woods MD Work Phone: [employer]; [employer]. Start: 10-08-2020 End: 10-08-2020 Periodic preventive med est patient 12-17yrs Darío Woods MD Work Phone: [employer]. Start: 07-08-2020 End: 07-08-2020 Office outpatient visit 15 minutes Darío Woods MD Work Phone: [employer]. Start: 05-14-2020 End: 05-14-2020 Telephone follow-up Darío Woods MD Work Phone: [employer]. Start: 04-21-2020 End: 04-21-2020 Telephone follow-up Darío Woods MD Work Phone: [employer]. Start: 04-20-2020 End: 04-20-2020 Office outpatient visit 15 minutes Darío Woods MD Work Phone: [employer]. Start: 04-10-2020 End: 04-10-2020 Office outpatient visit 15 minutes Darío Woods MD Work Phone: [employer] Start: 01-23-2020 End: 01-23-2020 Office outpatient visit 15 minutes Darío Woods MD Work Phone: [employer] Start: 10-09-2019 End: 10-09-2019 Historical Summary Darío Woods MD Work Phone: [employer] Start: 10-09-2019 End: 10-09-2019 Patient encounter status Darío Woods MD Work Phone: [employer]; [employer]. Start: 10-09-2019 End: 10-09-2019 Periodic preventive med est patient 12-17yrs Darío Woods MD Work Phone: [employer]. Start: 04-30-2019 End: 04-30-2019 Office outpatient visit 25 minutes Darío Woods MD Work Phone: [employer] Start: 04-05-2019 End: 04-05-2019 Orders Darío Woods MD Work Phone: [employer] Start: 03-29-2019 End: 03-29-2019 Office outpatient visit 15 minutes Darío Woods MD Work Phone: [employer]. Start: 01-11-2019 End: 01-11-2019 Office outpatient visit 15 minutes Darío Woods MD Work Phone: [employer]. Start: 12-11-2018 End: 12-11-2018 Telephone follow-up Darío Woods MD Work Phone: [employer]. Start: 12-10-2018 End: 12-10-2018 Office outpatient visit 15 minutes Darío Woods MD Work Phone: [employer]. Start: 10-10-2018 End: 10-10-2018 Patient encounter status Darío Woods MD Work Phone: [employer].; [employer]. Start: 10-10-2018 End: 10-10-2018 Periodic preventive med est patient 12-17yrs Darío Woods MD Work Phone: [employer]. Start: 06-04-2018 End: 06-04-2018 Telephone follow-up Darío Woods MD Work Phone: [employer]. Start: 05-11-2018 End: 05-11-2018 Medication Darío Woods MD Work Phone: [employer]. Start: 05-07-2018 End: 05-07-2018 Office outpatient visit 15 minutes Darío Woods MD Work Phone: [employer]. Start: 04-16-2018 End: 04-16-2018 Orders Darío Woods MD Work Phone: [employer]. Start: 02-20-2018 End: 02-20-2018 Office outpatient visit 15 minutes Darío Woods MD Work Phone: [employer]. Start: 12-08-2017 End: 12-08-2017 Orders Darío Woods MD Work Phone: [employer]. Start: 12-04-2017 End: 12-04-2017 Office outpatient visit 15 minutes Darío Woods MD Work Phone: [employer]. Start: 10-09-2017 End: 10-09-2017 Patient encounter status Darío Woods MD Work Phone: [employer].; [employer]. Start: 10-09-2017 End: 10-09-2017 Periodic preventive med est patient 12-17yrs Darío Woods MD Work Phone: [employer]. Start: 02-23-2017 End: 02-23-2017 Patient encounter procedure Darío Woods MD Work Phone: [employer]. Start: 02-23-2017 End: 02-23-2017 Patient encounter status Ainsley Thao RN [employer].; [employer]. Start: 09-07-2016 End: 09-07-2016 Office outpatient visit 15 minutes Darío Woods MD Work Phone: [employer]. Start: 03-31-2016 End: 03-31-2016 Office outpatient visit 15 minutes Darío Woods MD Work Phone: [employer]. Start: 03-26-2016 End: 03-26-2016 Patient encounter procedure Darío Woods MD Work Phone: [employer]. Start: 01-26-2016 End: 01-26-2016 Patient encounter status Darío Woods MD Work Phone: [employer] Start: 01-26-2016 End: 01-26-2016 Periodic preventive med est patient 5-11yrs Darío Woods MD Work Phone: [employer]. Start: 09-24-2015 End: 09-24-2015 Patient encounter procedure Darío Woods MD Work Phone: [employer]. Start: 04-16-2015 End: 04-16-2015 Orders Darío Woods MD Work Phone: [employer]. Start: 02-25-2015 End: 02-25-2015 Patient encounter procedure Darío Woods MD Work Phone: [employer] Start: 01-28-2015 End: 01-28-2015 Nursing evaluation of patient and report Darío Woods MD [facility] Start: 12-31-2014 End: 12-31-2014 Orders Darío Woods MD Work Phone: [employer]. Start: 12-31-2014 End: 12-31-2014 Patient encounter status Darío Woods MD Work Phone: [employer]. Start: 12-31-2014 End: 12-31-2014 Periodic preventive med est patient 5-11yrs Darío Woods MD Work Phone: [employer]. Start: 05-24-2013 Documentation procedure Everett Choi MD Work Phone: [facility] Start: 05-24-2013 Historic EMR Everett Choi MD Work Phone: [facility] Patient encounter status Madhuri Llanes MA [employer]. Patient encounter status Nancy Horn LP N [employer] Patient encounter status Nancy Horn LP N [employer] Patient encounter status Елена PALOMARES [employer]. Procedures Date Procedure Procedure Detail Performing Clinician Start: 08-13-2024 Computed tomography of abdomen and pelvis with intravenous contrast Dr. Jaycob Perera MD Work Phone: Start: 08-13-2024 Urnls dip stick/tabl et reagent auto microscopy Dr. Jaycob Perera MD Work Phone: Start: 08-12-[address] Jaycob Perera MD Work Phone: Start: 05-06-2024 Measurement of renal function Dr. Jaycob Perera MD Work Phone: Comment on above: GFR Calc Start: 09-28-2023 Us pelvic nonobstetr ic real-time image complete Porfirio P Tizzano MD Work Phone: Start: 07-22-2023 Us abdominal real ti me w/image limited Dolores Callahan [employer] Work Phone: Start: 07-22-2023 Drug tst prsmv instr mnt chem analyzers pr date Dolores Callahan DO Work Phone: Start: 07-22-2023 Urine test visual color cmprsn methwilber South MD Work Phone: Start: 07-22-2023 Urnls dip stick/tabl et reagent auto microscopy Dolores Callahan [employer] Work Phone: Start: 07-22-2023 Ecg routine ecg w/le ast 12 lds w/i&r Doloers Callahan [employer] Work Phone: Start: 07-22-2023 Basic metabolic pane l calcium total Dolores Callahan [employer] Work Phone: Start: 07-22-2023 Hepatic function panel Dolores Callahan [employer] Work Phone: Start: 06-08-2023 Computed tomography of abdomen and pelvis with contrast Start: 03-08-2023 End: 03-10-2023 Chest x-ray Nicole Santana PA-C Work Phone: Start: 10-26-2021 Adult depression scr eening assessment None Pcp Start: 08-24-2021 Basic metabolic pane l calcium total Pavan Murphy MD Work Phone: Start: 08-24-2021 CBC W Auto Different ial panel - Blood Pavan Murphy MD Work Phone: Start: 08-19-2021 Urine test visual color cmprsn meths Gorge Cervantes MD Work Phone: Start: 08-19-2021 End: 08-19-2021 Basic metabolic panel calcium total Gorge Cervantes MD Work Phone: Start: 08-19-2021 CBC W Auto Different ial panel - Blood Gorge Cervantes MD Work Phone: Start: 08-19-2021 Ecg routine ecg w/le ast 12 lds trcg only w/o i&r Gorge Cervantes MD Work Phone: Start: 12-08-2018 Ecg routine ecg w/le ast 12 lds i&r only Start: 02-20-2018 End: 02-21-2018 Radex wrist complete minimum 3 views Darío Woods MD Work Phone: Start: 02-23-2017 End: 02-23-2017 Screening test visual acuity quantitative bilat Gemma Maloney [place] PA-C Work Phone: Start: 02-23-2017 End: 02-23-2017 Body mass index documented Gemma Maloney [place] PA-C Work Phone: Start: 12-31-2014 End: 07-21-2015 Screening test visual acuity quantitative bilat Darío Woods MD Work Phone: Start: 05-23-2013 SURGICAL PATHOLOGY, CONVERTED Everett Choi MD Work Phone: Appendectomy Madhuri Mario Alberto MA Appendectomy Carrie Antonia LP N Work Phone: Grafting to skin Madhuri maloney MA Grafting to skin Carrie Beach y WALKING DRAGLINE OILER Work Phone: Plan of Treatment Date Care Activity Detail Author Start: 10-10-2027 Administration of diphtheria + tetanus + acellular pertussis vaccine DTAP/TDAP/TD VACCINE (7 - Td or Tdap) [facility] Start: 10-10-2027 Urine microalbumin profile DTaP,Tdap,Td Vaccine (7 - Td or Tdap) [facility] Start: 10-31-2025 End: 10-31-2025 Patient encounter procedure 10/31/2025 10:30 AM EDT Office Visit OB/Gynecology [address] [place], [place] [id number] Mouna Coppola APRN.FOXING CUTTING MACHINE OPERATOR [address] [place] [id number] Annual OB/Gynecology Comment on above: Annual Start: 01-14-2025 GC (Gonorrhea) Scree kyler (18-24) GC (Gonorrhea) Screening (18-24) [facility] Start: 01-14-2025 Screening for Chlamy lashonda trachomatis Chlamydia Screening (18) [facility] Start: 12-25-2024 End: 12-25-2024 Patient encounter procedure 12/25/2024 2:00 PM EDT Office Visit [facility] [place] [address], [place] [phone] Abdifatah Nails MD [address] [place], [place] [id number] est care physical [facility] [place] Comment on above: est care physical Start: 11-18-2024 Influenza vaccination C [facility] Start: 09-24-2024 GC (Gonorrhea) Scree kyler (18-24) GC (Gonorrhea) Screening (18-) [facility] Start: 09-24-2024 Screening for Chlamy lashonda trachomatis Chlamydia Screening () [facility] Start: 08-13-2024 Chlamydia/Neisseria (PCR) Chlamydia/Neisseria (PCR) [facility] Start: 08-13-2024 CT Abdomen [facility] Start: 08-13-2024 [facility] Start: 08-13-2024 Polymerase chain reaction analysis [facility] Start: 01-22-2024 End: 04-22-2024 Hemoglobin A1c in Blood [facility] Work Phone: Comment on above: Expected: 01/22/2024 , Expires: 04/22/2024 Start: 11-19-2023 Covid-19 Vaccine ( season) Covid-19 Vaccine ( season) [facility] Start: 11-19-2023 Influenza vaccination Influenza Vacc ine (#1) [facility] Start: 11-19-2023 Influenza vaccinatio n given INFLUENZA VACCINE (Season Ended) [facility] Start: 10-19-2023 Influenza vaccination Flu vacc ine (Season Ended) [facility] Start: 10-11-2023 End: 10-11-2023 Patient encounter procedure 10/11/2023 9:30 AM EDT Office Visit OB/Gynecology [address] [address] Porfirio Scott MD [address] [place] [address] Follow up OB/Gynecology Comment on above: Follow up Start: 09-28-2023 End: 09-28-2023 ambulatory OB/Gynecology Comment on above: Lower abdominal pain [R10.30]; Vaginal discharge [N89.8] Irregular menses [N9 2.6] Start: 09-25-2023 End: 12-25-2023 Thyrotropin [Units/volume] in Serum or Plasma THYROID STIMULATING HORMONE Lab Routine Irregular menses Expected: 09/25/2023, Expires: 12/25/2023 [facility] Comment on above: Expected: 09/25/2023 , Expires: 12/25/2023 Start: 09-25-2023 End: 09-24-2024 US Pelvis PELVIC US [facility] Anc Imaging Routine Lower abdominal pain Vaginal discharge Expected: 09/25/2023, Expires: 09/24/2024 [facility] Work Phone: Comment on above: Expected: 09/25/2023 , Expires: 09/24/2024 Start: 06-08-2023 [facility] Start: 05-04-2023 Antibody herpes smpl x type 1 HSV 1/ 2 IGG HERPES (21252, 04130) ([id number]) Start: 04-May-2023 15:20 Request [employer]. Start: 05-04-2023 Syphilis test non-treponemal antibody qual RPR W/ TITER AND CON (78340) Start: 04-May-2023 15:20 Request [employer]; [employer]. Start: 05-04-2023 Iaad ia hiv-1 ag w/h iv-1 & hiv-2 antbdy single HIV-1 AG W/HIV-1 & HIV-2 AB (57002) Start: 04-May-2023 15:19 Request [employer] Start: 05-04-2023 Hepatitis c antibody HEPATITIS C ANTIBODY reflex to HCV, RNA, Quant PCR (02657) Start: 04-May-2023 15:19 Request [employer] Start: 05-04-2023 Iaad ia hepatitis b surface antigen HEPATITIS B SURFACE ANTIGEN (02328) Start: 04-May-2023 15:19 Request [employer] Start: 05-04-2023 Iadna ivonne specie s direct probe tq BV, Yeast, Trich (01856, 45117, 08944) Start: 04-May-2023 15:19 Request [employer] Start: 05-04-2023 Iadna chlamydia trachomatis amplified probe tq GC / CHLAMYDIA RNA, TMA-URINE ([id number],[id number]) Start: 04-May-2023 15:14 Request [employer] Start: 05-04-2023 Iadna neisseria gonorrhoeae amplified probe tq [employer]. Start: 04-06-2023 Iadna ivonne specie s direct probe tq BV, Yeast, Trich (71744, 29037, 00250) Start: 06-Apr-2023 Request [employer]. Start: 03-20-2023 Behavioral Health Screening Behavioral Health Screening [facility] Start: 03-08-2023 Chest x-ray CHEST X-RAY, P A AND LATERAL (18389) Start: 08-Mar-2023 Intent [employer] Start: 03-08-2023 Radex spine cervical 4 or 5 views Cervical Spine x-ray (04181) Start: 08-Mar-2023 Intent [employer] Start: 2022 ANNUAL WELLNESS VISIT [facility] Start: 2022 Anxiety Screening Anxiety Screening [facility] Start: 2022 Depression Screening Depression Scre ening [facility] Start: 2022 GC (Gonorrhea) Scree kyler (18) GC (Gonorrhea) Screening () [facility] Start: 2022 Hepatitis C screening B ON [facility] Start: 2022 HIV screening HIV Screening [facility] Start: 2022 Screening for Chlamy lashonda trachomatis Chlamydia Screening () [facility] Start: 11-18-2022 COVID-19 VACCINE ( season) COVID-19 VACCINE ( season) [facility] Start: 10-26-2022 Depression screening using PHQ-9 (Patient Health Questionnaire 9) score DEPRESSION SCREENING [facility] Start: 11-18-2021 Influenza vaccinatio n given INFLUENZA VACCINE (Season Ended) [facility] Start: 2020 CHLAMYDIA SCREENING CHLAMYDIA SCREEN ING [facility] Start: 2020 Meningococcal B Vacc ine (1 of 2 - Standard) Meningococcal B Vaccine (1 of 2 - Standard) [facility] Start: 2020 Meningococcal B Vacc ine: Consider Based On Risk (1 of 2 - Patient Seeks Protection) Meningococcal B Vaccine: Consider Based On Risk (1 of 2 - Patient Seeks Protection) [facility] Start: 2020 MENINGOCOCCAL VACCIN E (1 - 2-dose series) [facility] Start: 2020 Screening for Chlamy lashonda trachomatis [facility] Start: 11-29-2019 HIV screening HIV screen [facility] Start: 11-29-2019 HPV Vaccine (1 - 3-d ose series) HPV Vaccine (1 - 3-dose series) [facility] Start: 11-29-2019 Human papilloma viru s vaccination given HPV VACCINES (GARDASIL) (1 - 3-dose series) [facility] Start: 03-29-2019 End: 04-05-2019 Ct head/brain w/o contrast material Brain CT W/O Contrast (33060) Date: 29-Mar-2019 [facility] Start: 2018 Peds To Adult Transi tion Annual Assessment Peds To Adult Transition Annual Assessment [facility] Start: 2016 Depression Screen Depression Screen [facility] Start: 2016 Depression screening using PHQ-9 (Patient Health Questionnaire 9) score DEPRESSION SCREENING [facility] Start: 2016 Peds To Adult Transi tion Initial Discussion Peds To Adult Transition Initial Discussion [facility] Start: 11-29-2015 Administration of diphtheria + tetanus + acellular pertussis vaccine DTAP/TDAP/TD VACCINE (1 - Tdap) [facility] Start: 11-29-2015 HPV vaccine (1 - 2-d ose series) HPV vaccine (1 - 2-dose series) [facility] Start: 11-29-2015 Human papilloma viru s vaccination given HPV VACCINES (GARDASIL) (1 - 2-dose series) [facility] Start: 11-29-2011 DTaP/Tdap/Td vaccine (1 - Tdap) DTaP/Tdap/Td vaccine (1 - Tdap) [facility] Start: 2009 COVID-19 VACCINE (1) COVID-19 VACCIN E (1) [facility] Start: 11-29-2007 PEDIATRIC WELLNESS V ISIT (3YR-17YR) PEDIATRIC WELLNESS VISIT (3YR-17YR) [facility] Start: 01-03-2007 Hepatitis A immunization HEPAT ITIS A VACCINE (2 of 2 - 2-dose series) [facility] Start: 2005 Administration of varicella virus vaccine VARICELLA VACCINE (1 of 2 - 2-dose childhood series) [facility] Start: 2005 Hepatitis A immunization HEPAT ITIS A VACCINE (1 of 2 - 2-dose series) [facility] Start: 2005 Hepatitis A vaccine (1 of 2 - 2-dose series) Hepatitis A vaccine (1 of 2 - 2-dose series) [facility] Start: 2005 Measles,Mumps,Rubell a (MMR) vaccine (1 of 2 - Standard series) Measles,Mumps,Rubella (MMR) vaccine (1 of 2 - Standard series) [facility] Start: 2005 MMR VACCINE (1 of 2 - Standard series) MMR VACCINE (1 of 2 - Standard series) [facility] Start: 2005 Varicella vaccine (1 of 2 - 2-dose childhood series) Varicella vaccine (1 of 2 - 2-dose childhood series) [facility] Start: 05-28-2005 COVID-19 Vaccine (#1) COVID-19 Vacci ne (#1) [facility] Start: 01-28-2005 Polio vaccination NOS IPV (DONALD IO) VACCINE (1 of 3 - 4-dose series) [facility] Start: 2004 Hepatitis B vaccination HEPATI TIS B VACCINE (1 of 3 - 3-dose primary series) [facility] Start: 2004 Hepatitis B vaccine (1 of 3 - 3-dose series) Hepatitis B vaccine (1 of 3 - 3-dose series) [facility] 12 lead ECG EKG (ED/FC) ECG STAT 08/19/2021 5:01 PM EDT [facility] BACTERIAL VAGINOSIS NAAT BACTERI AL VAGINOSIS NAAT Lab Routine Lower abdominal pain Vaginal discharge 09/25/2023 12:16 PM EDT [facility] BACTERIAL VAGINOSIS NAAT BACTERI AL VAGINOSIS NAAT Lab Routine Acute vaginitis Ordered: 01/15/2024 [facility] Comment on above: Ordered: 01/15/2024 IVONNE/TRICHOMONAS NAAT IVONNE /TRICHOMONAS NAAT Lab Routine Lower abdominal pain Vaginal discharge 09/25/2023 12:16 PM EDT [facility] IVONNE/TRICHOMONAS NAAT IVONNE /TRICHOMONAS NAAT Lab Routine Acute vaginitis Ordered: 01/15/2024 [facility] Work Phone: Comment on above: Ordered: 01/15/2024 Chlamydia trachomatis+Neisseria gonorrhoeae DNA [Presence] in Unspecified specimen by MARTY with probe detection GONORRHEA/CHLAMYDIA NAAT Lab Routine Lower abdominal pain Vaginal discharge 09/25/2023 12:16 PM EDT [facility] Chlamydia trachomatis+Neisseria gonorrhoeae DNA [Presence] in Unspecified specimen by MARTY with probe detection GONORRHEA/CHLAMYDIA NAAT Lab Routine Screening examination for STD (sexually transmitted disease) Ordered: 01/15/2024 [facility] Comment on above: Ordered: 01/15/2024 Chlamydia trachomatis+Neisseria gonorrhoeae DNA [Presence] in Unspecified specimen by MARTY with probe detection GONORRHEA/CHLAMYDIA NAAT Lab Routine Screen for STD (sexually transmitted disease) 10/30/2024 12:47 PM EDT [facility] Work Phone: EKG 12 Lead EKG 12 Lead ECG STAT 07/22/2023 8:33 PM EDT [facility] Hepatitis A virus Ig M Ab [Presence] in Serum [facility] Hepatitis B core antibody measurement, IgM type [facility] Hepatitis B surface antigen measurement [facility] Hepatitis C antibody measurement [facility] End: 08-19-2021 Lactate [Moles/volume] in Serum or Plasma LACTATE Lab Timed 2 Hours From Now for 1 Occurrences starting 08/19/2021 until 08/19/2021 [facility] Work Phone: Comment on above: 2 Hours From Now for 1 Occurrences starting 08/19/2021 until 08/19/2021 Patient Education [facility] Work Phone: Patient referral [facility] Work Phone: End: 07-22-2023 POC Urine Qual POC Urine Qual Point of Care Testing STAT One Time for 1 Occurrences starting 07/22/2023 until 07/22/2023 [facility] Comment on above: One Time for 1 Occur rences starting 07/22/2023 until 07/22/2023 TRICHOMONAS VAGINALI S NAAT TRICHOMONAS VAGINALIS NAAT Lab Routine Screen for STD (sexually transmitted disease) 10/30/2024 12:47 PM EDT [facility] Immunizations Immunization Date Immunization Notes Care Provider Fa [facility] 10-13-2022 Meningococcal, MCV4, unspecified conjugate formulation(groups A, C, Y and W-135) Darío Woods MD Work Phone: [employer] 10-13-2022 Counseled parent on risks/benefits of vaccines (60872) Darío Woods MD Work Phone: [employer]; [employer] 10-12-2022 meningococcal polysaccharide (groups A, C, Y and W-135) diphtheria toxoid conjugate vaccine (MCV4P) Darío Woods MD Work Phone: [employer]; [employer] Comment on above: Site: Left ArmVIS Gi [place]: * Meningococcal ACWY Vaccine (10/23/20) 10-12-2022 meningococcal oligosaccharide (groups A, C, Y and W-135) diphtheria toxoid conjugate vaccine (MCV4O) Porfirio Scott MD Work Phone: [facility] 10-08-2020 Counseled parent on risks/benefits of vaccines ([id number]) Darío Woods MD Work Phone: [facility] [employer] 10-09-2019 Counseled parent on risks/benefits of vaccines (27295) Darío Woods MD Work Phone: [facility]; [employer] 10-09-2017 meningococcal oligosaccharide (groups A, C, Y and W-135) diphtheria toxoid conjugate vaccine (MCV4O) Porfirio Scott MD Work Phone: [facility] 10-09-2017 Meningococcal, MCV4, unspecified conjugate formulation(groups A, C, Y and W-135) Darío Woods MD Work Phone: [facility]; [employer] 10-09-2017 Counseled parent on risks/benefits of vaccines (27450) Darío Woods MD Work Phone: [facility]; [employer] 10-09-2017 meningococcal polysaccharide (groups A, C, Y and W-135) diphtheria toxoid conjugate vaccine (MCV4P) Darío Woods MD Work Phone: [facility]; [employer]. Comment on above: Site: Left DeltoidVI S Given: * Meningococcal Vaccine (06/18/2015) 10-09-2017 tetanus toxoid, redu [place] diphtheria toxoid, and acellular pertussis vaccine, adsorbed Darío Woods MD Work Phone: [facility]; [employer] Comment on above: Site: Right DeltoidV IS Given: * Tdap (Tetanus, Diphtheria, Pertussis) (05/13/14) 12-24-2014 influenza virus vacc ine, live, attenuated, for intranasal use Porfirio Scott MD Work Phone: [facility] 12-24-2014 influenza virus vacc ine, unspecified formulation Porfirio Scott MD Work Phone: [facility] 12-03-2013 influenza virus vacc ine, live, attenuated, for intranasal use Porfirio Scott MD Work Phone: [facility] 12-30-2010 diphtheria, tetanus toxoids and acellular pertussis vaccine Darío Woods MD Work Phone: [facility]; [facility] 12-30-2010 measles, mumps and rubella virus vaccine Darío Woods MD Work Phone: [facility] 12-30-2010 poliovirus vaccine, inactivated Darío Woods MD Work Phone: [facility]; [facility] 12-30-2010 varicella virus vaccine Tito Woods MD Work Phone: [facility]; [facility] 06-29-2009 Diphtheria, tetanus toxoids and acellular pertussis vaccine, and poliovirus vaccine, inactivated Porfirio Scott MD Work Phone: [facility] 06-29-2009 measles, mumps and rubella virus vaccine Porfirio Scott MD Work Phone: [facility] 06-29-2009 varicella virus vaccine Tyshawn Scott MD Work Phone: [facility] 12-26-2007 pneumococcal conjuga te vaccine, 13 valent Darío Woods MD Work Phone: [facility]; [facility] 07-04-2006 hepatitis A vaccine, pediatric/adolescent dosage, 2 dose schedule Darío Woods MD Work Phone: [facility] 03-14-2006 diphtheria, tetanus toxoids and acellular pertussis vaccine Darío Woods MD Work Phone: [facility] 03-14-2006 diphtheria, tetanus toxoids and acellular pertussis vaccine, unspecified formulation Porfirio Scott MD Work Phone: [facility] 12-20-2005 haemophilus influenz ae type b vaccine, PRP-T conjugate Porfirio Scott MD Work Phone: [facility] 12-20-2005 measles, mumps and rubella virus vaccine Darío Woods MD Work Phone: [facility]; [facility] 12-20-2005 pneumococcal conjuga te vaccine, 7 valent Porfirio Scott MD Work Phone: [facility] 12-20-2005 varicella virus vaccine Tito Woods MD Work Phone: [facility]; [facility] 09-12-2005 diphtheria, tetanus toxoids and acellular pertussis vaccine, unspecified formulation Porfirio Scott MD Work Phone: [facility] 09-12-2005 DTaP-hepatitis B and poliovirus vaccine Darío Woods MD Work Phone: [facility]; [facility] 09-12-2005 haemophilus influenz ae type b vaccine, PRP-T conjugate Porfirio Scott MD Work Phone: [facility] 09-12-2005 hepatitis B vaccine, pediatric or pediatric/adolescent dosage Porfirio Scott MD Work Phone: [facility] 09-12-2005 pneumococcal conjuga te vaccine, 13 valent Darío Woods MD Work Phone: [facility]; [facility] 09-12-2005 pneumococcal conjuga te vaccine, 7 valent Porfirio Scott MD Work Phone: [facility] 09-12-2005 poliovirus vaccine, inactivated Porfirio Scott MD Work Phone: [facility] 06-12-2005 poliovirus vaccine, inactivated Porfirio Scott MD Work Phone: [facility] 06-06-2005 diphtheria, tetanus toxoids and acellular pertussis vaccine, unspecified formulation Porfirio Scott MD Work Phone: [facility] 06-06-2005 DTaP-hepatitis B and poliovirus vaccine Darío Woods MD Work Phone: [facility]; [facility] 06-06-2005 haemophilus influenz ae type b vaccine, PRP-T conjugate Porfirio Scott MD Work Phone: [facility] 06-06-2005 hepatitis B vaccine, pediatric or pediatric/adolescent dosage Porfirio Scott MD Work Phone: [facility] 06-06-2005 pneumococcal conjuga te vaccine, 13 valent Darío Woods MD Work Phone: [facility]; [facility] 06-06-2005 pneumococcal conjuga te vaccine, 7 valent Porfirio Scott MD Work Phone: [facility] 06-06-2005 poliovirus vaccine, unspecified formulation Porfirio Scott MD Work Phone: [facility] 02-08-2005 diphtheria, tetanus toxoids and acellular pertussis vaccine, unspecified formulation Porfirio Scott MD Work Phone: [facility] 02-08-2005 DTaP-hepatitis B and poliovirus vaccine Darío Woods MD Work Phone: [facility]; [facility] 02-08-2005 haemophilus influenz ae type b vaccine, PRP-T conjugate Porfirio Scott MD Work Phone: [facility] 02-08-2005 hepatitis B vaccine, pediatric or pediatric/adolescent dosage Porfirio Scott MD Work Phone: [facility] 02-08-2005 pneumococcal conjuga te vaccine, 13 valent Darío Woods MD Work Phone: [facility]; [facility] 02-08-2005 pneumococcal conjuga te vaccine, 7 valent Porfirio Scott MD Work Phone: [facility] 02-08-2005 poliovirus vaccine, inactivated Porfirio Scott MD Work Phone: [facility] 2004 hepatitis A vaccine, pediatric/adolescent dosage, 2 dose schedule Darío Woods MD Work Phone: [facility], [facility], [facility]. Payers Date Payer Category Payer [employer] [facility] BLUE ACCE SS PPO [id number] 2023 Unknown MARVIN ANDRADEE SS PPO [id number] 2023-Present [phone] [place] [address] PPO [id number] 2023 Unknown [id number] 2023 Unknown [id number] 2023 Self-pay [id number] 2023 Medicaid [employer] [place] [id number] 2023-Present [phone] [address] [place] [address] Medicaid [id number] 2023 Unknown [id number] 2021 Private Health Insurance [id number] 2004 Unknown [id number] 2.16.840.1.220072.3.579.2. 651 2004 Unknown [id number] 2.16.840.1.905807.3.579.2. 204 2004 Unknown [id number] 2.16.840.1.677549.3.579.2. 204 2004 Unknown [id number] 2.16.840.1.263774.3.579.2. 297 2004 Unknown [id number] 2.16.840.1.809583.3.579.2. 627 2004 Unknown [id number] 2.16.840.1.316575.3.579.2. 627 Unknown [id number] Unknown [id number] 2.16840.1.312246.3.579.2. 443 Unknown [id number] 2.16840.1.100983.3.579.2. 443 Unknown [id number] 2.16840.1.537281.3.579.2. 443 Unknown [id number] 2.16.840.1.276297.3.579.2. 462 Unknown [id number] 2.16.840.1.870033.3.579.2. 462 Unknown [id number] 2.16840.1.191801.3.579.2. 462 Unknown [id number] 2.16840.1.117732.3.579.2. 462 Unknown [id number] 2.16.840.1.236896.3.579.2. 462 Unknown [id number] 2.16.840.1.588314.3.579.2. 462 Unknown [id number] 2.16.840.1.897051.3.579.2. 462 Unknown [id number] 2.16.840.1.020814.3.579.2. 462 Social History Date Type Detail Facility Start: 08-19-2021 End: 01-15-2024 Tobacco smoking status NHIS Never smoked tobacco [facility] Start: 08-19-2021 End: 10-30-2024 Tobacco use and exposure Smokeless tobacco non-user [facility] Start: 08-19-2021 Alcohol intake Not Asked [facility] Start: 08-19-2021 History SDOH Alcohol Frequency 1 [facility] Start: 2005 Sex Assigned At Not on file [facility] Exposure to SARS-CoV -2 (event) Not sure [facility] Start: 08-24-2021 End: 10-30-2024 Alcohol intake Ex-drinker (finding) [facility] Start: 05-29-2021 End: 06-08-2023 Tobacco smoking status [facility] Tobacco smoking consumption unknown [facility] Start: 11-01-2022 End: 09-25-2023 Gender identity Not on file [facility] Parents: Parents: ; Foste r mother. LEAFER; LEAFER Tobacco/Smoke Exposure: Tobacco/ Smoke Exposure: ; None. [employer] Start: [address] [facility] Foster mother [employer] Work Phone: None [employer] Work Phone: Parents: Parents: ; Adopt get mother. [employer]. Adoptive mother [employer]. Work Phone: Start: 11-01-2022 End: 09-25-2023 History of Social function [facility] Start: 11-02-2017 PHQ-2: Most Recent Result Yes - No Depression [facility] Start: 10-26-2021 Gender identity Identifies as female gender (finding) [facility] Start: 10-26-2021 Sexual orientation Heterosexual (finding) [facility] Tobacco smoking status No Smokin g Status Entered [facility] Start: 08-12-2024 Tobacco smoking status ILIS Smokes tobacco daily (finding) [facility] Start: 10-30-2024 Tobacco smoking status NHIS Ex-smoker [facility] History of tobacco use Current smoker [facility] History of tobacco use Cigarette Smoker C [facility] Functional Status Date Assessment Result Facility 08-31-2023 Functional Status Activity Assistance Ind ependent [facility] Mental Status Date Assessment Result Facility 08-31-2023 Mental Status Orientation Oriented x 4 [facility] Clinical Notes 01-20-2021 to 10-30-2024 Addendum Note - Kareem Quintero LPN - 10/30/2024 12:47 PM EDTAddendum Note - Kareem Quintero LPN - 10/30/2024 12:47 PM EDTPatient InstructionsMouna Coppola APRN.CNP - 10/30/2024 10:35 AM EDT Note Date & Type Note Facility 10-30-2024 Note Addended by: KAREEM QUINTERO on: 10/30/2024 12:47 PM Modules accepted: Orders [facility] 10-30-2024 Miscellaneous Notes Addended by: KAREEM QUINTERO on: 10/30/2024 12:47 PM Modules accepted: Orders documented in this encounter [facility] 10-30-2024 Instructions Mouna Coppola APRN.CNP - 10/30/2024 11:26 AM EDT Images from the original note were not included. Human Papilloma Virus Vaccination For more information: My [facility] HPV Vaccine The HPV vaccine protects against certain cancers caused by human papillomavirus (HPV) infection. HPV is a common STI that can cause cervical cancer and cancers affecting the vagina, vulva, penis, anus and throat. The vaccine can also protect against genital warts. The HPV vaccine is recommended for people ages 9 to 45. documented in this encounter [facility] 10-30-2024 History of Present illness Narrative Social Media Editor offered: Patient declines. Addie is a 18 year old who presents for an annual gynecologic exam with concerns about future fertility, std screening. Presents: alone Menses: cycles every 29 days and 4 days of flow Menstrual cramping Sexually active: Yes Time with current partner: 6 months Number of lifetime partners: 20 Contraception: None HPV vaccine: No Last pap smear: never Bothersome pelvic pain: no STD Testing: - Patient requests STD testing. - Reports a history of bacterial vaginosis (BV) and a yeast infection in December. - Denies current symptoms of BV or yeast infection. Sexual Activity: - Sexually active with one partner for the past six months; no control used. - Reports multiple lifetime partners. Menstrual Cycle: - Average cycle length is 29 days, with bleeding lasting four days. - Experiences lower back cramps and abdominal pain during menstruation. Infertility Concerns: - Concerned about potential infertility due to not conceiving despite unprotected intercourse with current partner for six months and previous partners for over a year. - Has taken multiple tests, all negative. - Mother reportedly had no difficulty conceiving and has seven healthy children. Ovarian Cysts: - Reports a history of ovarian cysts causing abdominal pain; pain resolves when cysts rupture. - Was informed by the ER that this is normal and is not currently worried about it. Mental Health: - History of depression, anxiety, PTSD, and borderline personality disorder. - Was on mental health medications from ages 11 to 17; has been off medications for almost a year. - Currently not under the care of a mental health provider. Substance Use: - Smokes THC daily; nicotine use is on and off, currently vaping nicotine. - No other drug use reported. Work Schedule: - Works night shifts, five nights in a row. - Expresses concern about the impact of night shifts on health and fertility. OB History Gravida0 Para0 Term0 Preterm0 AB0 Living0 SAB0 IAB0 Ectopic0 Multiple0 Live Births0 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: 10/25/2024 (Exact Date), Having periods Age at Menarche: Age at First : Age at Menopause: 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 Comments: Sexual Activity: Yes; Male Contraception: No contraception data on record PAST MEDICAL HISTORY Diagnosis Date Borderline personality disorder (HCC) Depression Generalized anxiety disorder PTSD (post-traumatic stress disorder) PAST SURGICAL HISTORY Procedure Laterality Date APPENDECTOMY SKIN GRAFT HX FAMILY HISTORY Adopted: Yes Problem Relation Age of Onset Diabetes Father Diabetes Paternal Uncle SOCIAL HISTORY Social History Tobacco Use Smoking status: Former Types: Cigarettes Smokeless tobacco: Never Vaping Use Vaping status: current everyday user Substances: Nicotine Devices: Disposable Substance Use Topics Alcohol use: Not Currently Drug use: Yes Types: Marijuana Comment: daily REVIEW OF SYSTEMS Abdomen: No bloating, early satiety, indigestion, or increased flatulence. No abdominal pain, nausea, vomiting, diarrhea, or constipation. Bladder: No dysuria, gross hematuria, urinary frequency, urinary urgency, or incontinence. Breast: No breast lumps, nipple d/c, overlying skin changes, redness or skin retraction. Allergies and current medication updated:Yes SENSITIVE EXAM: The sensitive examination was discussed with the Patient or Patient's Authorized Stitchdown Thread Laster. As applicable, any other physician, advance practice provider, medical student, or other health professional student that will be observing or involved in the sensitive examination for educational or training purposes was discussed with the Patient or Authorized Stitchdown Thread Laster. The Patient or Authorized Stitchdown Thread Laster has agreed to proceed with the sensitive examination. (Sensitive examination includes inspection and/or palpation of the breasts, pelvis, prostate and anorectal regions). EXAM: BP 108/78 Ht 4' 11.252 (1.51m) Wt 115 lb (52.2kg) LMP 10/25/2024 BMI 23.03 kg/(m^2). GENERAL: pleasant in no apparent distress HEENT: Normocephalic, atraumatic, mucus membranes moist, and no lesions NECK: Supple, full range of motion, no adenopathy, and thyroid normal DERMATOLOGY: Normal, without lesions, non-icteric, and non-hirsute BREAST: deferred CHEST: Normal inspiratory effort ABDOMEN: soft, non-tender, and no masses PELVIC: external genitalia normal, normal Bartholin's glands, urethra, Fontana's glands, no vulvar lesions, no cervical lesions, good vaginal support, physiologic discharge present, normal appearing perineal body and perianal region BIMANUAL: uterus normal size, shape and consistency, no adnexal masses, and non-tender NEURO: alert and oriented x3,exam grossly non-focal EXTREMITIES: normal ASSESSMENT/PLAN: 1) Health maintenance: Pap starting at the age of 21. Safe sex practices reviewed. Nutrition, exercise, and routine health maintenance exams reviewed. Smoking cessation encouraged and resources provided. HPV vaccine discussed and literature given. Provided information on obtaining vaccine through health department or [facility] FA Educated: - Use a menstrual-tracking denzel with an ovulation predictor to record your periods and estimate your fertile days. - Around your predicted ovulation days, have intercourse every other day to optimize your chances of conception. - Take a multivitamin with folic acid daily. - Follow a balanced diet and include regular exercise in your routine. - Avoid smoking (both nicotine and THC) to support overall health and fertility. 2) Contraception: none. Contraceptive options reviewed and information provided. 3) STD screening: Accepted STI check for Gonorrhea and Chlamydia. 4) Follow up one year or sooner as needed. Mouna Copopla APRN.FOXING CUTTING MACHINE OPERATOR documented in this encounter [facility] 08-13-2024 Radiology Diagnostic study note [facility] Services [address] [place] [address] [id number] Abdomen/Pelvis W IV Cont ONLY MR#: [id number] Acct: [id number] Name: ADDIE MENA Rep #: [id number] : 2005 F 18 From: Jesus Cruz MD PCP: Dr. Jaycob Perera MD Status: RE G ER Study:Abdomen/Pelvis W IV Cont ONLY Date of E xam: 08/13/24 Exam# [id number] Ordering Dr: Ashlee Gill DO PROCEDURE: ABDOMEN/PELVIS W IV CONT ONLY 08/13/2024 REASON FOR EXAM: RUQ PAIN TECHNIQUE: Abdomen and pelvis CT with intravenous contrast. Coronal and Sagittal reconstruction series were provided. PATIENT PREPARATION: Per protocol ORAL CONTRAST TYPE: None. CONTRAST: 96 cc Isovue 370 IV One or more dose reduction techniques were used (e.g., Automated exposure control, adjustment of the mA and/or kV according to patient size, use of iterative reconstruction technique. RADIATION DOSE SUMMARY: CTDlvol: 16.62 mGy DLP: 328.33 mGycm COMPARISON: None available FINDINGS: Lung bases are clear. Mild geographic heterogeneous appearance of the liver and possible mild periportal edema may be inflammatory/infectious, possible hepatitis, clinically correlate. The gallbladder, adrenal glands, kidneys, pancreas and spleen appear within limits. Abdominal aorta appears within limits. No adenopathy. No bowel dilation or free air. Status post appendectomy, no secondary signs. The ovaries, uterus and bladder appear within limits. No free fluid. Visualized osseous structures appear within limits. CT/Abdomen/Pelvis W IV Cont ONLY IMPRESSION: Mild geographic heterogeneous appearance of the liver and possible mild periportal edema may be inflammatory/infectious, possible hepatitis, clinically correlate. Reading Location: [id number] CC: Dr. Jaycob Perera MD; Medardo Gill DO ~ Supervisor Self Service Store: Signed [facility] 08-12-2024 Telephone encounter Note Reason for Call: Sharp pain under ribs. Caller reports a pain occurring under ribs that is causing her severe difficulty breathing right now. Says pain has been occurring for a few days to months and gotten worse, causes numbness in right arm and pain has gone up to her head, also been having blood with bowel movements. Outcome: Call EMS 911 NOW Patient advised to go to call EMS/911 now. Patient plans to call EMS/911 now. Joelle Spangler RN Reason for Disposition SEVERE difficulty breathing (e.g., struggling for each breath, speaks in single words) Nursing judgement: Reports a sharp pain occurring under ribs that is causing her severe difficulty breathing right now. Pain has been occurring for a few days to months and gotten worse, causes numbness in right arm and pain has gone up to her head, also been having blood with bowel movements. Protocols used: Chest Kgsu-OSVHS-WS [facility] Work Phone: 08-12-2024 Miscellaneous Notes Reason for Call: Sharp pain under ribs. Caller reports a pain occurring under ribs that is causing her severe difficulty breathing right now. Says pain has been occurring for a few days to months and gotten worse, causes numbness in right arm and pain has gone up to her head, also been having blood with bowel movements. Outcome: Call EMS 911 NOW Patient advised to go to call EMS/911 now. Patient plans to call EMS/911 now. Joelle Spangler RN Reason for Disposition SEVERE difficulty breathing (e.g., struggling for each breath, speaks in single words) Nursing judgement: Reports a sharp pain occurring under ribs that is causing her severe difficulty breathing right now. Pain has been occurring for a few days to months and gotten worse, causes numbness in right arm and pain has gone up to her head, also been having blood with bowel movements. Protocols used: Chest Draz-YLSBL-AB documented in this encounter [facility] 03-21-2024 Note HNO ID: [id number] Author: DWAYNE ABDI APRN.FOXING CUTTING MACHINE OPERATOR Service: ? Author Type: Nurse Practitioner Type: Progress Notes Filed: 03/21/2024 09:22 Note Text: Subjective HPI Nontoxic-appearing female presents urgent care chief complaint

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
[2024-10-31 22:15] VITALS: BP 117/82; PULSE 55; RESP 15; O2SAT 100
[2024-10-31 22:16] VITALS: BP 117/82; PULSE 64; RESP 15; TEMP 36.3; O2SAT 100
== END 2024-10-31 22:29 | disposition home or self-care (01) ==
PROVIDERS: Emergency Provider Emergency Medicine; Referring Provider Emergency Medicine; Visit Provider Emergency Medicine
DX: S09.90XA Unspecified injury of head, initial encounter (principal); H02.844 Edema of left upper eyelid; Y04.8XXA Assault by other bodily force, initial encounter; F17.290 Nicotine dependence, other tobacco product, uncomplicated
CPT/HCPCS: 70450; 99284